=== PATIENT | female | born 1950 | race Caucasian/White ===

== ENCOUNTER 2019-08-18 21:39 | Observation (INO) ==
--- NOTE | 2019-08-18 21:57 | DR.GENAD ---
HPI Time Seen Time Seen by Provider: 08/18/19 21:51 HPI Comment HPI Comment: Brought in by ems after falling at home; daughter reports she had 30mg temazepam in the bottle which was labeled 15mg and the pt took two (60mg total); she fell by her bedside; currently, she is very sleepy but slowly and co herently answers questions; feels groggy but daughter says she normally does with 30mg alone; she was dropped to 15mg because she felt the 30mg made her too groggy but had gone back to 30mg (two 15mg) because the 15mg didn't help her sleep; she got a rf today with the mixup; occasional palpitations and cp which is unchanged and for which cardiology is scheduling additional testing; does not feel she is particularly worse tonight. 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 Social History Do you use any recreational Drugs:: No infectious screening Isolation: Standard ROS Review of Systems Constitutional: See HPI, Weakness and Fatigue (no diaphoresis) Eyes: No Symptoms Reported ENTM: No Symptoms Reported Respiratoy: Short of Breath (occasional; no wheezing or cough) Cardiovascular: See HPI, Chest Pain and Palpitations Gastrointestinal/Abdominal: No Symptoms Reported Genitourinary: Other (currently on abx for uti) Neurological: See HPI Musculoskeletal: Muscle Stiffness Endocrine: No Symptoms Reported PE Vital Signs Vitals: Temperature 97.8 F Pulse Rate 71 Respiratory Rate 20 Blood Pressure [Left Arm] 135/66 Blood Pressure 188/77 O2 Sat by Pulse Oximetry 97 General Limitations: Altered Mental Status (somnolent but arousable; speech slow but clear) General Appearance: Obtunded Head Head Exam: Normal Inspection and Atraumatic Neck Neck Exam: Normal Inspection and Full ROM Chest Chest Inspection: Normal Inspection and Symmetric Chest Wall Rise Respiratory Respiratory Exam: Bilateral: Clear to Auscultation Cardiovascular Cardiovascular Exam: Regular Rate Abdominal Exam Abdominal Exam: Normal Inspection, Normal Bowel Sounds and Soft Back Back Exam: Normal Inspection Psychiatric Psychiatric Exam: Other (somnolent; occasionally follows commands) Skin Skin Exam: Warm and Dry COURSE Reevaluation 1st: Improved ROR Labs Reviewed Result Diagrams: 08/18/19 22:07 08/18/19 22:07 Laboratory: WBC 4.9 X10^3/uL (3.6-10.0) 08/18/19 22:07 RBC 4.01 X10^6/uL (3.5-5.4) 08/18/19 22:07 Hgb 12.0 g/dL (12.0-16.0) 08/18/19 22:07 Hct 35.9 % (36.0-47.0) L 08/18/19 22:07 MCV 89.5 fL (80.0-100.0) 08/18/19 22:07 MCH 29.9 pg (27.0-34.0) 08/18/19 22:07 MCHC 33.4 g/dL (33.0-35.0) 08/18/19 22:07 RDW 13.8 % (11.6-16.5) 08/18/19 22:07 Plt Count 172 X10^3/uL (150.0-450.0) 08/18/19 22:07 MPV 9.6 fL (7.4-11.0) 08/18/19 22:07 Neut % (Auto) 62.0 % (42.0-75.0) 08/18/19 22:07 Lymph % (Auto) 29.6 % (21.0-51.0) 08/18/19 22:07 [place] % (Auto) 5.1 % (0.0-13.0) 08/18/19 22:07 Eos % (Auto) 2.0 % (0.9-2.9) 08/18/19 22:07 Baso % (Auto) 1.3 % (0.2-1.0) H 08/18/19 22:07 Neut # (Auto) 3.1 x10^3/uL (2.2-4.8) 08/18/19 22:07 Lymph # (Auto) 1.5 X10^3/uL (1.3-2.9) 08/18/19 22:07 [place] # (Auto) 0.3 x10^3/uL (0.3-0.8) 08/18/19 22:07 Eos # (Auto) 0.1 x10^3/uL (0.0-0.2) 08/18/19 22:07 Baso # (Auto) 0.1 X10^3/uL (0.0-0.1) 08/18/19 22:07 Absolute Nucleated RBC 0.0 /100WBC 08/18/19 22:07 Opioid Opioid Risk Tool Total: 0 Total Score Risk Category: Low Risk Copyright: Cortez WALLER predicting aberrant behaviors
[2019-08-18 22:15] LABS: BASOPHILS # (AUTO) 0.1 X10^3/uL (0.0-0.1); BASOPHILS % (AUTO) 1.3 % (0.2-1.0); EOSINOPHILS # (AUTO) 0.1 x10^3/uL (0.0-0.2); HEMATOCRIT 35.9 % (36.0-47.0); LYMPHOCYTES # (AUTO) 1.5 X10^3/uL (1.3-2.9); LYMPHOCYTES % (AUTO) 29.6 % (21.0-51.0); MEAN CORPUSCULAR HEMOGLOBIN 29.9 pg (27.0-34.0); MEAN CORPUSCULAR HGB CONC 33.4 g/dL (33.0-35.0); MEAN CORPUSCULAR VOLUME 89.5 fL (80.0-100.0); MEAN PLATELET VOLUME 9.6 fL (7.4-11.0); MONOCYTES # (AUTO) 0.3 x10^3/uL (0.3-0.8); MONOCYTES % (AUTO) 5.1 % (0.0-13.0); NEUTROPHILS # (AUTO) 3.1 x10^3/uL (2.2-4.8); PLATELET COUNT 172 X10^3/uL (150.0-450.0); RED BLOOD COUNT 4.01 X10^6/uL (3.5-5.4); RED CELL DISTRIBUTION WIDTH 13.8 % (11.6-16.5); WHITE BLOOD COUNT 4.9 X10^3/uL (3.6-10.0)
[2019-08-18 22:23] LABS: ALANINE AMINOTRANSFERASE 43 Units/L (12-78); ALBUMIN 3.8 g/dL (3.4-5.0); ALKALINE PHOSPHATASE 23 Units/L (46-116); ASPARTATE AMINO TRANSFERASE 23 Units/L (15-37); BLOOD UREA NITROGEN 24 mg/dL (7-18); CALCIUM 9.3 mg/dL (8.5-10.1); CARBON DIOXIDE 26.8 mmol/L (21-32); CHLORIDE 104 mmol/L (98-107); COR NA(FOR HYPERGLY) 141 mmol/L (136-145); CREATININE 1.12 mg/dL (0.55-1.02); SODIUM 140 mmol/L (136-145); TOTAL PROTEIN 7.3 g/dL (6.4-8.2); eGFR NON BLACK RACES 51 (>60)
[2019-08-18] MEDS ORDERED: VASOTEC INJ 2.5 MG VIAL IVP ONE (22:55)
[2019-08-18] MEDS ORDERED: NS 1000 ML 1,000 ML IV SCH (23:00)
--- NOTE | 2019-08-18 23:00 | DR.GENAD ---
HPI Time Seen Time Seen by Provider: 08/18/19 21:51 PCP Primary Care Physician: CHELSEY SCOTT HPI Comment HPI Comment: see previous note Complaint/Symptoms Chief Complaint:: PT TOOK TOO MUCH OF HER SLEEPING MEDICATION. PT NORMALLY TAKE 30MG OF RESTORIL . PT MISTAKELY TOOK 60MG. 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 Past Surgical History Comment: PARTIAL MASECTOMY, HEART SURGERY Family History History of Family Medical Conditions: Yes Family Medical History: Diabetes Mellitus and Hypertension Social History Have you used tobacco products in the last 12 months: No Type of Tobacco Use: None Does any household member use tobacco: No Alcohol Use: None Do you use any recreational Drugs:: No Lives With: Alone infectious screening In the last 2 months have you had wt loss of >10#?: NO Have you had fever, night sweats or hemotysis?: No Have you traveled outside the country in the last 6 months?: No Isolation: Standard ROS Review of Systems Constitutional: Other (see previous note) Endocrine: Increased Hunger PE Vital Signs Vitals: Temperature 97.8 F Pulse Rate 70 Respiratory Rate 20 Blood Pressure [Left Arm] 135/66 Blood Pressure 198/93 O2 Sat by Pulse Oximetry 99 General Limitations: Other (see previous note) COURSE Reevaluation 1st: Improved (she is actually more alert and spontaneously starts telling me what happened while I discussed admission w/family) ROR Labs Reviewed Laboratory Results Reviewed?: Yes Result Diagrams: 08/18/19 22:07 08/18/19 22:07 Laboratory: WBC 4.9 X10^3/uL (3.6-10.0) 08/18/19 22:07 RBC 4.01 X10^6/uL (3.5-5.4) 08/18/19 22:07 Hgb 12.0 g/dL (12.0-16.0) 08/18/19 22:07 Hct 35.9 % (36.0-47.0) L 08/18/19 22:07 MCV 89.5 fL (80.0-100.0) 08/18/19 22:07 MCH 29.9 pg (27.0-34.0) 08/18/19 22:07 MCHC 33.4 g/dL (33.0-35.0) 08/18/19 22:07 RDW 13.8 % (11.6-16.5) 08/18/19 22:07 Plt Count 172 X10^3/uL (150.0-450.0) 08/18/19 22:07 MPV 9.6 fL (7.4-11.0) 08/18/19 22:07 Neut % (Auto) 62.0 % (42.0-75.0) 08/18/19 22:07 Lymph % (Auto) 29.6 % (21.0-51.0) 08/18/19 22:07 [place] % (Auto) 5.1 % (0.0-13.0) 08/18/19 22:07 Eos % (Auto) 2.0 % (0.9-2.9) 08/18/19 22:07 Baso % (Auto) 1.3 % (0.2-1.0) H 08/18/19 22:07 Neut # (Auto) 3.1 x10^3/uL (2.2-4.8) 08/18/19 22:07 Lymph # (Auto) 1.5 X10^3/uL (1.3-2.9) 08/18/19 22:07 [place] # (Auto) 0.3 x10^3/uL (0.3-0.8) 08/18/19 22:07 Eos # (Auto) 0.1 x10^3/uL (0.0-0.2) 08/18/19 22:07 Baso # (Auto) 0.1 X10^3/uL (0.0-0.1) 08/18/19 22:07 Absolute Nucleated RBC 0.0 /100WBC 08/18/19 22:07 Sodium 140 mmol/L (136-145) 08/18/19 22:07 Corrected Sodium 141 mmol/L (136-145) 08/18/19 22:07 Potassium 3.5 mmol/L (3.5-5.1) 08/18/19 22:07 Chloride 104 mmol/L (98-107) 08/18/19 22:07 Carbon Dioxide 26.8 mmol/L (21-32) 08/18/19 22:07 BUN 24 mg/dL (7-18) H 08/18/19 22:07 Creatinine 1.12 mg/dL (0.55-1.02) H 08/18/19 22:07 Est GFR (MDRD) Af Amer > 60 (>60) 08/18/19 22:07 Est GFR (MDRD) Non-Af 51 (>60) L 08/18/19 22:07 Glucose 160 mg/dL (65-99) H 08/18/19 22:07 Calcium 9.3 mg/dL (8.5-10.1) 08/18/19 22:07 Corrected Calcium TNP 08/18/19 22:07 Total Bilirubin 0.30 mg/dL (0.2-1.0) 08/18/19 22:07 AST 23 Units/L (15-37) 08/18/19 22:07 ALT 43 Units/L (12-78) 08/18/19 22:07 Alkaline Phosphatase 23 Units/L (46-116) L 08/18/19 22:07 Total Protein 7.3 g/dL (6.4-8.2) 08/18/19 22:07 Albumin 3.8 g/dL (3.4-5.0) 08/18/19 22:07 Globulin 3.5 g/dL (2.5-4.5) 08/18/19 22:07 Albumin/Globulin Ratio 1.1 Ratio (1.1-2.1) 08/18/19 22:07 EKG Rhythm: NSR Block: RBBB Opioid Opioid Risk Tool Age (Noah box if 16-45): No Total: 0 Total Score Risk Category: Low Risk Copyright: Cortez WALLER predicting aberrant behaviors Diagnosis Discharge Problem: Uncontrolled hypertension, Cystitis Benzodiazepine (tranquilizer) overdose Qualifiers: Encounter type: initial encounter Injury intent: accidental or unintentional Qualified Code(s): T42.4X1A - Poisoning by benzodiazepines, accidental (unintentional), initial encounter Instructions Instructions: Hypertension, [id number] Forms: Excuse From Work Patient Portal
[2019-08-18] MEDS ORDERED: VASOTEC INJ 2.5 MG VIAL IVP PRN (23:07)
[2019-08-19 00:57] VITALS: BMI 28.3
--- NOTE | 2019-08-19 08:30 | DR.SSS ---
SHORT STAY SUMMARY Admission Date Date of Admission: 08/18/19 Discharge Date Discharge Date: 08/19/19 Admission Diagnoses Admission Diagnoses: Benzodiazepine Overdose Discharge Diagnoses Discharge Diagnoses: Benzodiazepine Overdose Cystitis Chief Complaint Chief Complaint: Accidently took too much sleep medicine. History of Present Illness History of Present Illness: Pt is a 68 yo f pmhx HTN, DM, ALBA, presenting after accidently taking too much of her sleep medication. She states that she usually takes Restoril 15mg that was not helping her symptoms and dose was changed by her pcp Laurence Suarez, to 30mg. However, since she still had 15mg tablets left she was told to take 2 tablets to equal same dose. 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 She became concerned after realizing her mistake and came to the ED to be evaluated. She admits to be under a lot of social stress at home, but denies taking medication intentionally or having suicidal/homicidal ideations. 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 Allergies Allergies Allergy/AdvReac Type Severity Reaction Status Date / Time Fqtcekk-Byy-Zgk Reductase Allergy Verified 08/18/19 21:53 Inhibitor Medications Home Medications: Mhnilvr-Fyv-Tnp Reductase Inhibitor Allergy (Verified 08/18/19 21:53) CONTINUE taking the following medications Unobtainable 08/18/19 [History] Family History Family Medical History: Diabetes Mellitus and Hypertension Social History Have you used tobacco products in the last 12 months: No Type of Tobacco Use: None Does any household member use tobacco: No Alcohol Use: None Drug Use: None Review of Systems Constitutional: Malaise; denies Fever, Chills and Weakness Eyes: No Symptoms Reported ENT: No Symptoms Reported Respiratory: No Symptoms Reported Gastrointestinal: No Symptoms Reported Genitourinary: No Symptoms Reported Musculoskeletal: No Symptoms Reported Skin: No Symptoms Reported Neurological: No Symptoms Reported Physical Exam Temperature: 98.3 F Blood Pressure: 207/91 Respiratory Rate: 16 Pulse Rate: 67 O2 Sat by Pulse Oximetry: 97 Oriented: Normal Eyes: Normal Ear: Normal Nose: Normal Respiratory: Clear Throughout Cardiovascular: Normal : Dysuria Auscultation: Bowel Sounds: Normal Palpation: Normal Tenderness: Normal Skin: Normal Musculoskeletal: Normal Psychiatric: Normal Mood Description: Calm Speech Pattern: Clear Labs Labs: Laboratory Last Values WBC 4.9 X10^3/uL (3.6-10.0) 08/18/19 22:07 RBC 4.01 X10^6/uL (3.5-5.4) 08/18/19 22:07 Hgb 12.0 g/dL (12.0-16.0) 08/18/19 22:07 Hct 35.9 % (36.0-47.0) L 08/18/19 22:07 MCV 89.5 fL (80.0-100.0) 08/18/19 22:07 MCH 29.9 pg (27.0-34.0) 08/18/19 22:07 MCHC 33.4 g/dL (33.0-35.0) 08/18/19 22:07 RDW 13.8 % (11.6-16.5) 08/18/19 22:07 Plt Count 172 X10^3/uL (150.0-450.0) 08/18/19 22:07 MPV 9.6 fL (7.4-11.0) 08/18/19 22:07 Neut % (Auto) 62.0 % (42.0-75.0) 08/18/19 22:07 Lymph % (Auto) 29.6 % (21.0-51.0) 08/18/19 22:07 [place] % (Auto) 5.1 % (0.0-13.0) 08/18/19 22:07 Eos % (Auto) 2.0 % (0.9-2.9) 08/18/19 22:07 Baso % (Auto) 1.3 % (0.2-1.0) H 08/18/19 22:07 Neut # (Auto) 3.1 x10^3/uL (2.2-4.8) 08/18/19 22:07 Lymph # (Auto) 1.5 X10^3/uL (1.3-2.9) 08/18/19 22:07 [place] # (Auto) 0.3 x10^3/uL (0.3-0.8) 08/18/19 22:07 Eos # (Auto) 0.1 x10^3/uL (0.0-0.2) 08/18/19 22:07 Baso # (Auto) 0.1 X10^3/uL (0.0-0.1) 08/18/19 22:07 Absolute Nucleated RBC 0.0 /100WBC 08/18/19 22:07 Sodium 140 mmol/L (136-145) 08/18/19 22:07 Corrected Sodium 141 mmol/L (136-145) 08/18/19 22:07 Potassium 3.5 mmol/L (3.5-5.1) 08/18/19 22:07 Chloride 104 mmol/L (98-107) 08/18/19 22:07 Carbon Dioxide 26.8 mmol/L (21-32) 08/18/19 22:07 BUN 24 mg/dL (7-18) H 08/18/19 22:07 Creatinine 1.12 mg/dL (0.55-1.02) H 08/18/19 22:07 Est GFR (MDRD) Af Amer > 60 (>60) 08/18/19 22:07 Est GFR (MDRD) Non-Af 51 (>60) L 08/18/19 22:07 Glucose 160 mg/dL (65-99) H 08/18/19 22:07 Calcium 9.3 mg/dL (8.5-10.1) 08/18/19 22:07 Corrected Calcium TNP 08/18/19 22:07 Total Bilirubin 0.30 mg/dL (0.2-1.0) 08/18/19 22:07 AST 23 Units/L (15-37) 08/18/19 22:07 ALT 43 Units/L (12-78) 08/18/19 22:07 Alkaline Phosphatase 23 Units/L (46-116) L 08/18/19 22:07 Total Protein 7.3 g/dL (6.4-8.2) 08/18/19 22:07 Albumin 3.8 g/dL (3.4-5.0) 08/18/19 22:07 Globulin 3.5 g/dL (2.5-4.5) 08/18/19 22:07 Albumin/Globulin Ratio 1.1 Ratio (1.1-2.1) 08/18/19 22:07 Assessment/Plan 1: Benzodiazepine overdose -Vitals stable overnight. Overdose appears to be accidental. Contacted pharmacy before discharge to have Restoril relabeled. Educated and cautioned patient on taking medication. Discharge home. 2: Cystitis -Pt being treated with Bactrim by pcp. Instructed to complete course of home antibiotics on discharge. Discharge Medications Discharge Medications: Home Medication List Unobtainable 08/18/19 [History] Prescriptions:
[2019-08-19] MEDS ORDERED: BACTRIM DS TAB PO SCH ×2 (09:00→10:00)
[2019-08-19] MEDS ORDERED: ZESTRIL TAB 5 MG PO SCH (09:15)
[2019-08-19] MEDS ORDERED: NAPROSYN PO SCH (09:32)
[2019-08-19 09:50] VITALS: BP 127/60
[2019-08-19] MEDS ORDERED: AMARYL TAB 4 MG PO SCH (10:00)
[2019-08-19] MEDS ORDERED: EFFEXOR XR 75 MG CAP PO SCH (10:00)
[2019-08-19] MEDS ORDERED: SNACK - Diabetic Appropriate PO SCH (20:00)
[2019-08-19] MEDS ORDERED: NEURONTIN CAP 100 MG PO SCH (21:00)
[2019-08-20] MEDS ORDERED: MICRO K EXTEN CAP 10 MEQ PO SCH (09:00)
== END 2019-08-19 11:28 | disposition home or self-care (01) ==
LOC: MED/SURG 21:40 → ER 21:40 → MED/SURG 23:39
PROVIDERS: ADMIT Family Medicine; ATTEND Family Medicine
DX: Z91.81 History of falling; I10 Essential (primary) hypertension; R06.02 Shortness of breath; E11.65 Type 2 diabetes mellitus with hyperglycemia; R94.31 Abnormal electrocardiogram [ECG] [EKG]; Y92.009 Unspecified place in unspecified non-institutional (private) residence as the place of occurrence of the external cause; K21.9 Gastro-esophageal reflux disease without esophagitis; R07.89 Other chest pain; T42.4X1A Poisoning by benzodiazepines, accidental (unintentional), initial encounter; N30.90 Cystitis, unspecified without hematuria; F41.8 Other specified anxiety disorders; R94.4 Abnormal results of kidney function studies
CPT/HCPCS: 36415; 80053; 85025; 93005; 94760; 96360; 96361; 96365; 96374; 99284; G0378; J3490; J7030

== ENCOUNTER 2019-08-30 20:00 | Observation (INO) ==
[2019-08-30 20:28] VITALS: BMI 28.3
--- NOTE | 2019-08-30 20:38 | DR.NAUSEAF ---
HPI - Time Seen Time seen: 20:37 - Primary Care Physician Primary Care Physician: DEBI - Complaints Chief Complaint Doctors Comments: Patient is complaining of epigastric pain with presistent vomiting for two days not being able to keep anything down. Spouse say she has been sick for a week. States she has hypertension and a CABG four y ears ago with Breast cancer four years ago. She is a patient of [facility] and she has not taken anything for the vomiting today. States all her medicines and food comes back up. She is having chest pressure on the left side for a while with SOB today. Chief Complaint:: PT C/O N/V FOR 2 DAYS WEAKNESS - Reviewed Nurses Notes Reviewed: Yes - Source History Provided: Patient - Mode of Arrival Mode of Arrival: Wheelchair - Timing Onset of Chief Complaint: 08/28/19 - Context Onset: Spontaneous Recent: None Possible Ingestion: Unknown : No History of: Abdominal Operation - Quality Quality: Bilious - Associated Signs and Symptoms Abdominal Pain Quality: Cramping, Sharp Abdominal Pain Location: Diffuse, Epigastric Symptoms: denies: Abdominal Pain, Diarrhea, Anorexia, Hematemesis, Melena, Hematochezia, Fever PMH - PMH Past Medical History: Yes Past Medical History: Hypertension, Diabetes, Anxiety, GERD Past Surgical History: Yes Surgical History: CABG/Valve Surgery, INSPECTOR METAL CAN Surgery, Mastectomy, Tonsillectomy Past Surgical History Comment: LT BREAST DUE TO BREAT CA - Family History History of Family Medical Conditions: Yes Family Medical History: Diabetes Mellitus, Hypertension - Social History Does any household member use tobacco: No Alcohol Use: None Do you use any recreational Drugs:: No Lives With: Family Lives Where: Home - infectious screening In the last 2 months have you had wt loss of >10#?: NO Have you had fever, night sweats or hemotysis?: No Have you traveled outside the country in the last 6 months?: No Isolation: Standard ROS - Review of Systems Constitutional: No Symptoms Reported, Loss of Appetite Eyes: No Symptoms Reported ENTM: No Symptoms Reported, Nose Discharge, Nose Congestion Respiratoy: No Symptoms Reported Cardiovascular: No Symptoms Reported, Chest Pain (left sided xiphoid discomfort) Gastrointestinal/Abdominal: No Symptoms Reported, Nausea, Vomiting Genitourinary: No Symptoms Reported. negative: See HPI, Discharge, Dysuria, Frequency, Hematuria, Pain, Bleeding, Other Neurological: No Symptoms Reported Musculoskeletal: No Symptoms Reported Integumentary: No Symptoms Reported Hematologic/Lymphatic: No Symptoms Reported Endocrine: No Symptoms Reported Psychiatric: No Symptoms Reported PE - General Limitations: No Limitations General Appearance: Alert, In No Apparent Distress - Head Head Exam: Normal Inspection, Atraumatic, Normocephalic - Eyes Eye exam: Normal Appearance, PERRL, EOMI. negative: Scleral Icterus, Conjunctival Injection, Nystagmus, Miosis, Mydrasis, Periorbital Swelling, Periorbital Tenderness, Other - ENT ENT Exam: Normal Exam, Normal Oropharynx, Normal External Ear Exam, Mucous Membranes Moist, TM's Normal Bilaterally - Neck Neck Exam: Normal Inspection, Full ROM, Trachea Midline. negative: Tenderness, Meningismus, Lymphadenopathy, Thyromegaly, Other - Chest Chest Inspection: Normal Inspection, Symmetric Chest Wall Rise. negative: Tenderness, Rash, Abscess, Other - Respiratory Respiratory Exam: Normal Lung Sounds Bilat Respiratory Exam: Bilateral Clear to Auscultation - Cardiovascular Cardiovascular Exam: Regular Rate, Normal Rhythm, Normal Heart Sounds, Systolic Murmur - Abdominal Exam Abdominal Exam: Normal Inspection, Normal Bowel Sounds, Soft, Tenderness, Guarding, Dimnished Bowel Sounds Abdominal Tenderness: RLQ, LLQ, Epigastrium, Suprapubic, Moderate - Rectal Rectal Exam: Deferred - External Exam: Female: Deferred : Speculum Exam (Female): Deferred : Bimanual Exam (female): Deferred - Extremities Extremities Exam: Normal Inspection, Full ROM, Normal Capillary Refill. negative: Tenderness, Edema, Joint Swelling, Calf Tenderness, Other - Back Back Exam: Normal Inspection, Full ROM. negative: Tenderness, (R) CVA Tende rness, (L) CVA Tenderness, Muscle Spasm, Paraspinal Tenderness, Vertebral Tenderness, Rashes, (R) Sciatic Notch Tenderness, (L) Sciatic Notch Tendern, (R) Straight Leg Raise, (L) Straight Leg Raise, Other - Neurologic Neurological Exam: Alert, Oriented X3, CN II-XII Intact, Normal Gait, Reflexes Normal - Psychiatric Psychiatric Exam: Normal Affect, Normal Mood, Agitated. negative: Depressed, Anxious, Flat Affect, Manic, Homicidal Ideation, Suicidal Ideation, Other - Skin Skin Exam: Warm, Dry, Intact, Normal Color - Vital Signs Vitals: Temperature 97.8 F Pulse Rate 106 Respiratory Rate 18 Blood Pressure [Left Arm] 127/60 Blood Pressure 178/92 O2 Sat by Pulse Oximetry 100 Course - Reevaluation 1st: Improved - Consultation Called: 02:42 Call Returned: 02:42 (Dr. Roland to admit) - Education/Counseling Education/Counseling: Patient, Family Educated On: Treatment, Diagnosis, Needs for Follow Up ROR - Labs Reviewed Laboratory Results Reviewed?: Yes (All labs and x-ray results reviewed and discussed with patient) Result Diagrams: 08/30/19 20:56 08/30/19 20:56 - XRAY XRAY Interpreted by: Radiologist (CT abdomen and pelvis: No acute abnormality identified. Cholelithiasis without CT evidence of acute cholecystitis. Colonic diverticulosis without diverticulitis.), Both (CTA: con't: 3.9 cmfat and fluid collection left breast.) XRAY Findings: CTA chest: No central/segmental PTE or acute cardiopulmonary abnormality. - EKG Rate: 87 [place]: Normal Rhythm: NSR, PVCs Block: RBBB ST: Nonsp - Labs Reviewed Laboratory: WBC 4.5 X10^3/uL (3.6-10.0) 08/30/19 20:56 RBC 3.93 X10^6/uL (3.5-5.4) 08/30/19 20:56 Hgb 11.8 g/dL (12.0-16.0) L 08/30/19 20:56 Hct 35.3 % (36.0-47.0) L 08/30/19 20:56 MCV 89.9 fL (80.0-100.0) 08/30/19 20:56 MCH 30.1 pg (27.0-34.0) 08/30/19 20:56 MCHC 33.5 g/dL (33.0-35.0) 08/30/19 20:56 RDW 14.0 % (11.6-16.5) 08/30/19 20:56 Plt Count 238 X10^3/uL (150.0-450.0) 08/30/19 20:56 MPV 9.6 fL (7.4-11.0) 08/30/19 20:56 Neut % (Auto) 69.5 % (42.0-75.0) 08/30/19 20:56 Lymph % (Auto) 23.9 % (21.0-51.0) 08/30/19 20:56 [place] % (Auto) 4.6 % (0.0-13.0) 08/30/19 20:56 Eos % (Auto) 0.7 % (0.9-2.9) L 08/30/19 20:56 Baso % (Auto) 1.3 % (0.2-1.0) H 08/30/19 20:56 Neut # (Auto) 3.2 x10^3/uL (2.2-4.8) 08/30/19 20:56 Lymph # (Auto) 1.1 X10^3/uL (1.3-2.9) L 08/30/19 20:56 [place] # (Auto) 0.2 x10^3/uL (0.3-0.8) L 08/30/19 20:56 Eos # (Auto) 0.0 x10^3/uL (0.0-0.2) 08/30/19 20:56 Baso # (Auto) 0.1 X10^3/uL (0.0-0.1) 08/30/19 20:56 Absolute Nucleated RBC 0.0 /100WBC 08/30/19 20:56 PT 15.1 SECONDS (11.8-14.3) 08/30/19 20:56 INR Target Range - 08/30/19 20:56 INR 1.24 (0.8-1.3) 08/30/19 20:56 APTT 25.5 SECONDS (22.9-36.5) 08/30/19 20:56 PTT Comment - 08/30/19 20:56 D-Dimer 868 ng/mL (0-400) H* 08/30/19 20:56 Sodium 135 mmol/L (136-145) L 08/30/19 20:56 Corrected Sodium 139 mmol/L (136-145) 08/30/19 20:56 Potassium 4.5 mmol/L (3.5-5.1) 08/30/19 20:56 Chloride 103 mmol/L (98-107) 08/30/19 20:56 Carbon Dioxide 19.4 mmol/L (21-32) L 08/30/19 20:56 BUN 60 mg/dL (7-18) H 08/30/19 20:56 Creatinine 1.07 mg/dL (0.55-1.02) H 08/30/19 20:56 Est GFR (MDRD) Af Amer > 60 (>60) 08/30/19 20:56 Est GFR (MDRD) Non-Af 54 (>60) L 08/30/19 20:56 Glucose 282 mg/dL (65-99) H 08/30/19 20:56 Calcium 10.2 mg/dL (8.5-10.1) H 08/30/19 20:56 Corrected Calcium TNP 08/30/19 20:56 Magnesium 1.6 mg/dL (1.7-2.9) L 08/30/19 20:56 Total Bilirubin 0.40 mg/dL (0.2-1.0) 08/30/19 20:56 AST 22 Units/L (15-37) 08/30/19 20:56 ALT 36 Units/L (12-78) 08/30/19 20:56 Alkaline Phosphatase 21 Units/L (46-116) L 08/30/19 20:56 Creatine Kinase 32 Units/L (26-192) 08/30/19 20:56 CK-MB (CK-2) < 1.0 ng/mL (0-4.0) 08/30/19 20:56 CK/CKMB % Calc 3.1 % (<4) 08/30/19 20:56 Troponin I < 0.02 ng/mL (0-1.5) 08/30/19 20:56 Total Protein 7.5 g/dL (6.4-8.2) 08/30/19 20:56 Albumin 3.9 g/dL (3.4-5.0) 08/30/19 20:56 Globulin 3.6 g/dL (2.5-4.5) 08/30/19 20:56 Albumin/Globulin Ratio 1.1 Ratio (1.1-2.1) 08/30/19 20:56 Specimen Type Random urine 08/30/19 21:52 Urine Color Yellow (YELLOW) 08/30/19 21:52 Urine Appearance Clear (CLEAR) 08/30/19 21:52 Urine pH 6.0 (5.0 - 8.0) 08/30/19 21:52 Ur Specific [place] 1.015 (1.000-1.030) 08/30/19 21:52 Urine Protein 1+ (NEGATIVE) 08/30/19 21:52 Urine Glucose (UA) 4+ (NEGATIVE) 08/30/19 21:52 Urine Ketones 2+ (NEGATIVE) 08/30/19 21:52 Urine Occult Blood Negative (NEGATIVE) 08/30/19 21:52 Urine Nitrite Negative (NEGATIVE) 08/30/19 21:52 Urine Bilirubin Negative (NEGATIVE) 08/30/19 21:52 Urine Urobilinogen Normal (NORMAL) 08/30/19 21:52 Ur Leukocyte Esterase 2+ (NEGATIVE) 08/30/19 21:52 Urine RBC 3-5 /HPF (0-3) A 08/30/19 21:52 Urine WBC 3-5 /HPF (0-5) 08/30/19 21:52 Ur Squamous Epith Cells Few /HPF (NEGATIVE) 08/30/19 21:52 Urine Bacteria Trace /HPF (NEGATIVE) 08/30/19 21:52 Ur Culture Indicated? Yes/culture set up 08/30/19 21:52 Opioid - Opioid Risk Tool Age (Noah box if 16-45): No Total: 0 Total Score Risk Category: Low Risk - Diagnosis Discharge Problem: Acute gastroenteritis, Metabolic acidosis, Diverticulosis of colon, Dyspepsia, Lump of breast, left, Essential hypertension, Dehydration Diabetes mellitus type 2, uncontrolled Qualifiers: Glycemic state: with hyperglycemia Qualified Code(s): E11.65 - Type 2 diabetes mellitus with hyperglycemia Cholelithiasis Qualifiers: Cholangitis acuity: unspecified acuity Biliary obstruction: without biliary obstruction Urinary tract infection Qualifiers: Urinary tract infection type: acute cystitis Chronic kidney disease (CKD) Qualifiers: Chronic kidney disease stage: stage 3 (moderate) Qualified Code(s): N18.3 - Chronic kidney disease, stage 3 (moderate) - Discharge Plan Disposition: 09 ADMITTED INPATIENT Condition: Stable - Follow ups/Referrals Follow ups/Referrals: Ulysses Mary [Primary Care Provider] - 3 days - Instructions
[2019-08-30] MEDS ORDERED: NS 1000 ML 1,000 ML IV ONE (20:45)
[2019-08-30] MEDS ORDERED: ZOFRAN INJ 4 MG VIAL IVP ONE (20:45)
[2019-08-30] MEDS ORDERED: TORADOL 30 MG VIAL IVP ONE (20:46)
[2019-08-30] MEDS ORDERED: NS 1000 ML 1,000 ML ONE (20:47)
[2019-08-30] MEDS ORDERED: ZOFRAN INJ 4 MG VIAL ONE (20:47)
[2019-08-30] MEDS ORDERED: TORADOL 30 MG VIAL ONE (20:53)
[2019-08-30 21:16] LABS: BASOPHILS # (AUTO) 0.1 X10^3/uL (0.0-0.1); BASOPHILS % (AUTO) 1.3 % (0.2-1.0); EOSINOPHILS % (AUTO) 0.7 % (0.9-2.9); HEMATOCRIT 35.3 % (36.0-47.0); HEMOGLOBIN 11.8 g/dL (12.0-16.0); LYMPHOCYTES # (AUTO) 1.1 X10^3/uL (1.3-2.9); LYMPHOCYTES % (AUTO) 23.9 % (21.0-51.0); MEAN CORPUSCULAR HEMOGLOBIN 30.1 pg (27.0-34.0); MEAN CORPUSCULAR HGB CONC 33.5 g/dL (33.0-35.0); MEAN CORPUSCULAR VOLUME 89.9 fL (80.0-100.0); MEAN PLATELET VOLUME 9.6 fL (7.4-11.0); MONOCYTES # (AUTO) 0.2 x10^3/uL (0.3-0.8); MONOCYTES % (AUTO) 4.6 % (0.0-13.0); NEUTROPHILS # (AUTO) 3.2 x10^3/uL (2.2-4.8); NEUTROPHILS % (AUTO) 69.5 % (42.0-75.0); PLATELET COUNT 238 X10^3/uL (150.0-450.0); RED BLOOD COUNT 3.93 X10^6/uL (3.5-5.4); WHITE BLOOD COUNT 4.5 X10^3/uL (3.6-10.0)
[2019-08-30 21:30] LABS: BLOOD UREA NITROGEN 60 mg/dL (7-18); CALCIUM 10.2 mg/dL (8.5-10.1); CARBON DIOXIDE 19.4 mmol/L (21-32); CHLORIDE 103 mmol/L (98-107); COR NA(FOR HYPERGLY) 139 mmol/L (136-145); CREATININE 1.07 mg/dL (0.55-1.02); SODIUM 135 mmol/L (136-145); TROPONIN I < 0.02 ng/mL (0-1.5); eGFR NON BLACK RACES 54 (>60)
--- NOTE | 2019-08-30 21:32 | RAD ---
Chest, one viewIndication: Nausea, vomitingComparison: 06/07/2015Findings: Heart is normal in size. Prior CABG noted. No focal infiltrate or significant effusion. No pneumothorax.Impression: No acute cardiopulmonary abnormality. Reported By:
--- NOTE | 2019-08-30 21:32 | CT ---
CT abdomen and pelvis without contrastIndication: Nausea and vomiting for 2 days, weaknessTechnique: Helical CT images of the abdomen and pelvis were obtained without IV contrast. Reformatted images in the coronal and sagittal planes were also generated for review.Comparison: NoneFindings: Lung bases are clear. No acute osseous abnormality.Within limits of a noncontrast exam, the unenhanced liver, spleen, pancreas, adrenals and kidneys are unremarkable. No urolithiasis or obstructive uropathy. There is cholelithiasis without CT evidence of acute cholecystitis.Evaluation of the GI tract is limited without oral contrast. Accounting for this, there is colonic diverticulosis without diverticulitis. There is no bowel obstruction or gross inflammation. The appendix is normal. The abdominal aorta is mildly calcified without aneurysm. Urinary bladder is grossly normal. Uterus is present. No free air, free fluid or bulky lymphadenopathy.Impression: No acute abnormality identified within the limitations of an exam performed without intravenous or oral contrast.Cholelithiasis without CT evidence of acute cholecystitis.Colonic diverticulosis without diverticulitis.Reported By:
[2019-08-30 21:34] LABS: ALANINE AMINOTRANSFERASE 36 Units/L (12-78); ALBUMIN 3.9 g/dL (3.4-5.0); ALKALINE PHOSPHATASE 21 Units/L (46-116); ASPARTATE AMINO TRANSFERASE 22 Units/L (15-37); CKMB % 3.1 % (<4); CREATINE KINASE 32 Units/L (26-192); CREATINE KINASE MB < 1.0 ng/mL (0-4.0); MAGNESIUM 1.6 mg/dL (1.7-2.9); TOTAL PROTEIN 7.5 g/dL (6.4-8.2)
[2019-08-30] MEDS ORDERED: NS 100 ML IV 100 ML IV ONE (22:04)
[2019-08-30 22:05] LABS: BILIRUBIN,URINE NEGATIVE (NEGATIVE); BLOOD/HEMOGLOBIN,URINE NEGATIVE (NEGATIVE); GLUCOSE, URINE 4+ (NEGATIVE); KETONES,URINE 2+ (NEGATIVE); LEUKOCYTE ESTERASE ,URINE 2+ (NEGATIVE); NITRITES,URINE NEGATIVE (NEGATIVE); PROTEIN,URINE 1+ (NEGATIVE); UROBILINOGEN,URINE NORMAL (NORMAL)
[2019-08-30 22:12] LABS: APPEARANCE,URINE CLEAR (CLEAR); COLOR,URINE YELLOW (YELLOW)
[2019-08-30 22:19] LABS: BACTERIA,URINE TRACE /HPF (NEGATIVE); SQUAMOUS EPITHELIAL CELL,UR FEW /HPF (NEGATIVE)
[2019-08-30] MEDS ORDERED: PEPCID 20 MG IV PREMIX* 20 MG/50 ML BAG IV ONE ×2 (23:01→23:06)
--- NOTE | 2019-08-30 23:02 | CT ---
CTA chest Indication: Shortness of breath, chest painTechnique: Helical CT images of the chest were obtained with IV contrast. Reformatted images in the coronal and sagittal planes and 3D MIP images were also generated for review.Comparison: NoneFindings: Contrast bolus timing is adequate for detection of PTE. No central or segmental pulmonary arterial filling defects are identified. There is no pulmonary arterial dilatation or evidence of right heart strain. Heart is normal in size without pericardial effusion. Coronary atherosclerotic disease and previous CABG noted. The thoracic aorta and proximal great vessels are minimally calcified but normal in contour and caliber. Central airways are patent. There is no mediastinal or bulky hilar lymphadenopathy. The lungs are clear without focal consolidation. No pleural effusion or pneumothorax.Limited images through the upper abdomen demonstrate no acute abnormality. No acute osseous abnormality is identified. There is a 3.9 x 3.0 cm fluid collection within the left breast which contains a fat fluid level (axial image 45 series 4). No gas is noted within the collection.Impression: No central/segmental PTE or acute cardiopulmonary abnormality.3.9 cm fat and fluid containing collection within the left breast as above, which likely reflects a postoperative seroma. Correlate clinically with physical exam to exclude underlying infection/abscess.Reported By:
[2019-08-31] MEDS ORDERED: ROCEPHIN VIAL 1 GRAM 1 G in NS 100 ML IV + SPIKE MINIBAG* 100 ML IV ONE (00:21)
[2019-08-31] MEDS ORDERED: ROCEPHIN VIAL 1 GRAM ONE (00:23)
[2019-08-31] MEDS ORDERED: HumuLIN R SUBCUT PRN (02:44)
[2019-08-31] MEDS ORDERED: NS 1000 ML 1,000 ML ONE (03:45)
[2019-08-31] MEDS: NS 1000 ML 1,000 ML IV SCH ×3 (04:05→20:28)
[2019-08-31] MEDS ORDERED: TYLENOL 325 MG TAB PO ONE (04:06)
[2019-08-31] MEDS: TYLENOL 325 MG TAB PO PRN ×3 (04:28→20:32)
[2019-08-31] MEDS ORDERED: ZOFRAN INJ 4 MG VIAL ONE (05:31)
[2019-08-31] MEDS: ZOFRAN INJ 4 MG VIAL IVP PRN ×2 (05:45→16:09)
[2019-08-31 06:03] LABS: BASOPHILS % (AUTO) 0.8 % (0.2-1.0); EOSINOPHILS % (AUTO) 0.8 % (0.9-2.9); HEMATOCRIT 32.1 % (36.0-47.0); HEMOGLOBIN 10.8 g/dL (12.0-16.0); LYMPHOCYTES # (AUTO) 1.8 X10^3/uL (1.3-2.9); LYMPHOCYTES % (AUTO) 31.4 % (21.0-51.0); MEAN CORPUSCULAR HEMOGLOBIN 30.3 pg (27.0-34.0); MEAN CORPUSCULAR HGB CONC 33.6 g/dL (33.0-35.0); MEAN CORPUSCULAR VOLUME 90.2 fL (80.0-100.0); MEAN PLATELET VOLUME 9.5 fL (7.4-11.0); MONOCYTES # (AUTO) 0.3 x10^3/uL (0.3-0.8); MONOCYTES % (AUTO) 4.9 % (0.0-13.0); NEUTROPHILS # (AUTO) 3.5 x10^3/uL (2.2-4.8); NEUTROPHILS % (AUTO) 62.1 % (42.0-75.0); PLATELET COUNT 243 X10^3/uL (150.0-450.0); RED BLOOD COUNT 3.56 X10^6/uL (3.5-5.4); RED CELL DISTRIBUTION WIDTH 13.9 % (11.6-16.5); WHITE BLOOD COUNT 5.6 X10^3/uL (3.6-10.0)
[2019-08-31 06:19] LABS: ALANINE AMINOTRANSFERASE 33 Units/L (12-78); ALBUMIN 3.7 g/dL (3.4-5.0); ALKALINE PHOSPHATASE 20 Units/L (46-116); ASPARTATE AMINO TRANSFERASE 18 Units/L (15-37); BLOOD UREA NITROGEN 61 mg/dL (7-18); CALCIUM 9.3 mg/dL (8.5-10.1); CARBON DIOXIDE 23.6 mmol/L (21-32); CHLORIDE 105 mmol/L (98-107); COR NA(FOR HYPERGLY) 142 mmol/L (136-145); CREATININE 1.23 mg/dL (0.55-1.02); SODIUM 140 mmol/L (136-145); TOTAL PROTEIN 7.2 g/dL (6.4-8.2); eGFR NON BLACK RACES 46 (>60)
[2019-08-31 06:38] LABS: CHOL/HDL RATIO 10.8 (0.0-5.0)
[2019-08-31] MEDS ORDERED: NS 1000 ML 1,000 ML IV ONE (11:19)
[2019-08-31] MEDS ORDERED: PHENERGAN INJ 25 MG IM PRN (11:35)
[2019-08-31] MEDS ORDERED: PROTONIX INJ 40 MG VIAL ONE (12:26)
[2019-08-31] MEDS: PROTONIX INJ 40 MG VIAL IVP SCH ×2 (12:35→12:37)
[2019-08-31] MEDS: LOPRESSOR TAB 25 MG PO SCH (14:46)
[2019-08-31] MEDS: ZESTRIL TAB 5 MG PO SCH (14:46)
[2019-08-31] MEDS: AMARYL TAB 4 MG PO SCH ×2 (14:46→20:30)
[2019-08-31] MEDS ORDERED: NORCO 5/325 MG TAB PO PRN (17:14)
[2019-08-31] MEDS ORDERED: NORCO 5/325 MG TAB ONE (17:27)
[2019-08-31] MEDS ORDERED: SNACK - Diabetic Appropriate PO SCH (20:00)
[2019-08-31] MEDS ORDERED: COLACE CAP 100 MG PO SCH (21:00)
[2019-09-01] MEDS: ZOFRAN INJ 4 MG VIAL IVP PRN (00:20)
[2019-09-01] MEDS: TYLENOL 325 MG TAB PO PRN ×2 (01:58→09:26)
[2019-09-01] MEDS: NS 1000 ML 1,000 ML IV SCH (03:16)
[2019-09-01 06:08] LABS: BASOPHILS # (AUTO) 0.1 X10^3/uL (0.0-0.1); BASOPHILS % (AUTO) 2.1 % (0.2-1.0); EOSINOPHILS # (AUTO) 0.1 x10^3/uL (0.0-0.2); EOSINOPHILS % (AUTO) 2.3 % (0.9-2.9); HEMATOCRIT 25.9 % (36.0-47.0); HEMOGLOBIN 8.8 g/dL (12.0-16.0); LYMPHOCYTES # (AUTO) 1.3 X10^3/uL (1.3-2.9); LYMPHOCYTES % (AUTO) 42.6 % (21.0-51.0); MEAN CORPUSCULAR HEMOGLOBIN 30.6 pg (27.0-34.0); MEAN CORPUSCULAR HGB CONC 33.8 g/dL (33.0-35.0); MEAN CORPUSCULAR VOLUME 90.4 fL (80.0-100.0); MEAN PLATELET VOLUME 9.2 fL (7.4-11.0); MONOCYTES # (AUTO) 0.2 x10^3/uL (0.3-0.8); NEUTROPHILS # (AUTO) 1.4 x10^3/uL (2.2-4.8); PLATELET COUNT 186 X10^3/uL (150.0-450.0); RED BLOOD COUNT 2.86 X10^6/uL (3.5-5.4); RED CELL DISTRIBUTION WIDTH 14.2 % (11.6-16.5); WHITE BLOOD COUNT 3.1 X10^3/uL (3.6-10.0)
[2019-09-01 06:14] LABS: BLOOD UREA NITROGEN 26 mg/dL (7-18); CALCIUM 8.3 mg/dL (8.5-10.1); CARBON DIOXIDE 22.5 mmol/L (21-32); CHLORIDE 111 mmol/L (98-107); COR NA(FOR HYPERGLY) 143 mmol/L (136-145); CREATININE 0.86 mg/dL (0.55-1.02); SODIUM 143 mmol/L (136-145); eGFR NON BLACK RACES > 60 (>60)
[2019-09-01 06:35] LABS: COR CA(FOR HYPOALB) 8.9 mg/dL (8.5-10.1)
[2019-09-01 06:38] LABS: ALANINE AMINOTRANSFERASE 31 Units/L (12-78); ALBUMIN 3.2 g/dL (3.4-5.0); ALKALINE PHOSPHATASE 16 Units/L (46-116); ASPARTATE AMINO TRANSFERASE 24 Units/L (15-37)
[2019-09-01 08:55] VITALS: BP 138/62
[2019-09-01] MEDS: ZESTRIL TAB 5 MG PO SCH (09:26)
[2019-09-01] MEDS: AMARYL TAB 4 MG PO SCH (09:26)
[2019-09-01] MEDS: PROTONIX INJ 40 MG VIAL IVP SCH (09:27)
[2019-09-01] MEDS: LOPRESSOR TAB 25 MG PO SCH (09:27)
--- NOTE | 2019-09-01 16:58 | US ---
History: Abdominal pain and elevated liver function testsStudy: Ultrasound of the right upper quadrant of the abdomenComparison: NoneFindings: The right lobe of the liver measures 14.6 cm sagittal length without focal mass. There is appropriate flow in the portal vein and in hepatic veins.Visualized pancreas is unremarkable.There is no aortic aneurysm or free fluid. The IVC is patent.The gallbladder wall is prominent.There are several echogenic mobile gallstones. The common hepatic duct measures 1.9 mm diameter.The right kidney measures 9.48 x 5.08 x 5.47 cm with a resistive index of 0.66. There is no hydronephrosis or renal mass.Impression: CholelithiasisReported By:
== END 2019-09-01 11:45 | disposition home or self-care (01) ==
LOC: MED/SURG 20:11 → ER 20:11 → MED/SURG 08-31 03:35
PROVIDERS: ADMIT Obstetrics & Gynecology Obstetrics; ATTEND Obstetrics & Gynecology Obstetrics
DX: R11.2 Nausea with vomiting, unspecified; K52.89 Other specified noninfective gastroenteritis and colitis; K57.30 Diverticulosis of large intestine without perforation or abscess without bleeding; E87.2 Acidosis; N63.20 Unspecified lump in the left breast, unspecified quadrant; R10.13 Epigastric pain; N17.8 Other acute kidney failure; N18.3 Chronic kidney disease, stage 3 (moderate); K21.9 Gastro-esophageal reflux disease without esophagitis; E86.0 Dehydration; E11.65 Type 2 diabetes mellitus with hyperglycemia; F41.8 Other specified anxiety disorders; K80.20 Calculus of gallbladder without cholecystitis without obstruction; I12.9 Hypertensive chronic kidney disease with stage 1 through stage 4 chronic kidney disease, or unspecified chronic kidney disease; R94.31 Abnormal electrocardiogram [ECG] [EKG]; N30.00 Acute cystitis without hematuria
CPT/HCPCS: 36415; 71010; 71045; 71275; 74176; 76705; 80053; 80061; 81001; 82550; 82553; 83735; 84484; 85025; 85378; 85610; 85730; 87086; 93005; 94760; 96360; 96361; 96365; 96374; 96375; 99284; A4216; A4222; C9113; S0028; G0378; J0696; J1885; J2405; J2550; J3490; J7030; J7050

== ENCOUNTER 2023-02-03 23:31 | Inpatient (IN) ==
[2023-02-03 23:43] VITALS: BMI 29.8
--- NOTE | 2023-02-03 23:48 | DR.GENAD ---
HPI Time Seen Time Seen by Provider: 02/03/23 23:48 PCP Primary Care Physician: CHELSEY SCOTT Complaint/Symptoms Chief Complaint Doctors Comments: Patient states that she went to her pcp 2-3 days ago and was diagnosed with a UTI and was given ciprofloxacin. Patient took the medication for 2 days and presents with left flank pain and LLq pain.Patient states that she also has sob and has been having SMITH for 3 days.Patient has never had CHF before. Patient does not have: a h/o CHF or COPD/Asthma, lighheadness,syncope. Patient has h/o CAD and had CABG x 2 vessel after occlusion of the LAD coronary artery in the past. 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 Chief Complaint:: PT C/O NAUSEA X 3 DAYS, VOMITING X 1 DAY Source History Provided: Patient and EMS Mode of Arrival Mode of Arrival: EMS Timing Onset of Chief Complaint: 01/31/23 PMH PMH Past Medical History: Yes Past Medical History: Anxiety, Diabetes, GERD and Hypertension Past Medical History Comment: BREAST CA Past Surgical History: Yes Surgical History: CABG/Valve Surgery, [employer]IDENT[employer]PENTER Surgery, Mastectomy and Tonsillectomy Past Surgical History Comment: LEFT PARTIAL MASTECTOMY Family History History of Family Medical Conditions: Yes Family Medical History: Diabetes Mellitus and Hypertension Social History Does patient currently use any type of tobacco product: No Have you used tobacco products in the last 12 months: No Type of Tobacco Use: None Does any household member use tobacco: No Alcohol Use: None Do you use any recreational Drugs:: No Lives With: Spouse Infectious screening In the last 2 months have you had wt loss of >10#?: NO Have you had fever, night sweats or hemotysis?: No Have you traveled outside the country in the last 6 months?: No Isolation: Standard ROS Review of Systems Constitutional: No Symptoms Reported Eyes: No Symptoms Reported ENTM: No Symptoms Reported Respiratoy: Short of Breath Cardiovascular: Other (SMITH) Gastrointestinal/Abdominal: Abdominal Pain (Left flank pain) Genitourinary: No Symptoms Reported Neurological: No Symptoms Reported Musculoskeletal: No Symptoms Reported Integumentary: No Symptoms Reported Hematologic/Lymphatic: No Symptoms Reported Endocrine: No Symptoms Reported Psychiatric: No Symptoms Reported All Other Systems: Reviewed and Negative PE Vital Signs Vitals: Temperature 98.6 F Pulse Rate 78 Respiratory Rate 18 Blood Pressure [Left Arm] 176/93 Blood Pressure 155/72 O2 Sat by Pulse Oximetry 99 General Limitations: No Limitations General Appearance: Alert and In No Apparent Distress Head Head Exam: Normal Inspection Eyes Eye exam: Normal Appearance ENT ENT Exam: Normal Exam External Ear Exam: Normal External Inspection TM/Canal Exam: Bilateral: Normal Nose Exam: Normal Nose Exam Mouth Exam: Normal Inspection Throat Exam: Normal Inspection Neck Neck Exam: Normal Inspection Chest Chest Inspection: Normal Inspection Respiratory Respiratory Exam: Normal Lung Sounds Bilat Respiratory Exam: Bilateral: Clear to Auscultation Cardiovascular Cardiovascular Exam: Regular Rate and Normal Rhythm Abdominal Exam Abdominal Exam: Normal Inspection, Normal Bowel Sounds and Soft Extremities Extremities Exam: Normal Inspection Back Back Exam: Normal Inspection Neurologic Neurological Exam: Alert, Oriented X3 and CN II-XII Intact Psychiatric Psychiatric Exam: Normal Affect and Normal Mood Skin Skin Exam: Warm, Dry, Intact and Normal Color MDM Differential Diagnosis Differential Diagnosis: Pyelonephritis,CHF,CT,Pneumonia,electrolyte abnormalities COURSE Treatment Treatment: Patient was placed in a monitored room and IV access was initiated.Patient's Abd/pelvis CT w/o contrast revealed pulmonary edema, BNP is 1820. Patient was given lasix 20mg iv and had UO 900ml. Patient's 02 sat decreased to 82-88. She was placed on 2L nc and 02 sat increased to 97-98. Patient does not have 02 at home. Patient's EKG #1 revealed a RBBB and NSR /Troponin was negative/nonspecific t wave changes. EKG #2 revealed RBBB/NSR/ nonspecific Twave changes/Troponin was nml. Patient had Cabg x 2 vessel in the past at [facility] in [place] in the past . 05:20 Patient has been accepted to Dr Vu's service for further inpatient management.Patient is currently stable in the ED. ROR Labs Reviewed Laboratory Results Reviewed?: Yes Result Diagrams: 02/04/23 00:28 02/04/23 00:28 Laboratory: WBC 6.3 X10^3/uL (3.6-10.0) 02/04/23 00:28 RBC 3.35 X10^6/uL (3.5-5.4) L 02/04/23 00:28 Hgb 8.3 g/dL (12.0-16.0) L 02/04/23 00:28 Hct 26.1 % (36.0-47.0) L 02/04/23 00:28 MCV 78.0 fL (80.0-100.0) L 02/04/23 00:28 MCH 24.7 pg (27.0-34.0) L 02/04/23 00: MCHC 31.7 g/dL (33.0-35.0) L 02/04/23 00: RDW 17.9 % (11.6-16.5) H 02/04/23 00: Plt Count 307 X10^3/uL (150.0-450.0) 02/04/23 00: MPV 8.9 fL (7.4-11.0) 02/04/23 00: Neut % (Auto) 76.4 % (42.0-75.0) H 02/04/23 00: Lymph % (Auto) 15.2 % (21.0-51.0) L 02/04/23: [place] % (Auto) 6.3 % (0.0-13.0) 02/04/23: Eos % (Auto) 1.2 % (0.9-2.9) 02/04/23 00: Baso % (Auto) 0.9 % (0.2-1.0) 02/04/23 00: Neut # (Auto) 4.8 x10^3/uL (2.2-4.8) 02/04/23 00: Lymph # (Auto) 1.0 X10^3/uL (1.3-2.9) L 02/04/23 00: [place] # (Auto) 0.4 x10^3/uL (0.3-0.8) 02/04/23 00: Eos # (Auto) 0.1 x10^3/uL (0.0-0.2) 02/04/23 00: Baso # (Auto) 0.1 X10^3/uL (0.0-0.1) 02/04/23 00: Absolute Nucleated RBC 0.3 /100WBC 02/04/23: PT 16.5 SECONDS (11.8-14.3) 02/04/23 00: INR Target Range - 02/04/23 00:28 INR 1.35 (0.8-1.3) H 02/04/23 00:28 APTT 32.8 SECONDS (22.9-36.5) 02/04/23 00:28 PTT Comment - 02/04/23 00:28 Sodium 137 mmol/L (136-145) 02/04/23 00:28 Corrected Sodium 139 mmol/L (136-145) 02/04/23 00:28 Potassium 4.3 mmol/L (3.5-5.1) 02/04/23 00:28 Chloride 101 mmol/L (98-107) 02/04/23 00:28 Carbon Dioxide 24.7 mmol/L (21-32) 02/04/23 00:28 BUN 29 mg/dL (7-18) H 02/04/23 00:28 Creatinine 1.62 mg/dL (0.55-1.02) H 02/04/23 00:28 Est GFR (MDRD) Af Amer 40 (>60) L 02/04/23 00: Est GFR (MDRD) Non-Af 33 (>60) L 02/04/23 00:28 Glucose 189 mg/dL (65-99) H 02/04/23 00:28 Calcium 9.0 mg/dL (8.5-10.1) 02/04/23 00:28 Corrected Calcium TNP 02/04/23 00:28 Total Bilirubin 1.20 mg/dL (0.2-1.0) H 02/04/23 00:28 AST 30 Units/L (15-37) 02/04/23 00:28 ALT 30 Units/L (12-78) 02/04/23 00:28 Alkaline Phosphatase 35 Units/L (46-116) L 02/04/23 00:28 Creatine Kinase 65 Units/L (26-192) 02/04/23 03:46 Troponin I High Sens 51.5 ng/L (4.0-60.0) 02/04/23 03:46 B-Natriuretic Peptide 1820 pg/mL (0-79) H* 02/04/23 00:28 Total Protein 7.4 g/dL (6.4-8.2) 02/04/23 00:28 Albumin 4.1 g/dL (3.4-5.0) 02/04/23 00:28 Globulin 3.3 g/dL (2.5-4.5) 02/04/23 00:28 Albumin/Globulin Ratio 1.2 Ratio (1.1-2.1) 02/04/23 00:28 Specimen Type Clean catch urine 02/04/23 02:41 Urine Color Pale yellow (YELLOW) 02/04/23 02:41 Urine Appearance Clear (CLEAR) 02/04/23 02:41 Urine pH 5.0 (5.0 - 8.0) 02/04/23 02:41 Ur Specific [place] 1.015 (1.000-1.030) 02/04/23 02:41 Urine Protein 2+ (NEGATIVE) 02/04/23 02:41 Urine Glucose (UA) Negative (NEGATIVE) 02/04/23 02:41 Urine Ketones 1+ (NEGATIVE) 02/04/23 02:41 Urine Blood Negative (NEGATIVE) 02/04/23 02:41 Urine Nitrite Negative (NEGATIVE) 02/04/23 02:41 Urine Bilirubin Negative (NEGATIVE) 02/04/23 02:41 Urine Urobilinogen Normal (NORMAL) 02/04/23 02:41 Ur Leukocyte Esterase Negative (NEGATIVE) 02/04/23 02:41 Urine RBC None seen /HPF (0-3) 02/04/23 02:41 Urine WBC None seen /HPF (0-5) 02/04/23 02:41 Ur Squamous Epith Cells Rare /HPF (NEGATIVE) 02/04/23 02:41 Urine Bacteria Negative /HPF (NEGATIVE) 02/04/23 02:41 Ur Culture Indicated? No/not indicated 02/04/23 02:41 SARS-CoV-2 (PCR) Negative (NEGATIVE) 02/03/23 23:42 Influenza Type A (PCR) Negative (NEGATIVE) 02/03/23 23:42 Influenza Type B (PCR) Negative (NEGATIVE) 02/03/23 23:42 RSV (PCR) Negative (NEGATIVE) 02/03/23 23:42 XRAY XRAY Interpreted by: Radiologist X-ray Results: HISTORY LT FLANK PAIN STUDY ABDOMEN/PELVIS W/O CON COMPARISON None TECHNIQUE Multiple axial images of the abdomen and pelvis were obtained from the lung bases to the pubic symphysis without the administration of IV contrast. Dose reduction techniques including Automated Exposure Control (AEC) and adjustment of mA and kV were utilized. FINDINGS Interseptal thickening and ground-glass airspace opacities in the lung bases suggest pulmonary edema. The visible portions of the heart are enlarged. The abdominal aorta tapers normally with moderate calcified atherosclerotic plaque. No liver lesion visible. Stones are noted in the gallbladder. There is mild stranding around the wall of the gallbladder versus pericholecystic fluid. Normal adrenal glands. No renal stones or hydronephrosis. No ureteral stones. Normal spleen with small splenules. Atrophy and fatty infiltration of the [place] cre[place]. Decompressed stomach. Severe diverticular changes of the descending and sigmoid colon without CT evidence of complication. Normal appendix identified. Small bowel is not obstructed. No pelvic free fluid. No free air. No lymphadenopathy. IMPRESSION Cholelithiasis with mild inflammatory stranding around the gallbladder versus pericholecystic fluid. Consider right upper quadrant ultrasound for further detail. Cholecystitis may be present. No renal stones or obstructive uropathy. Signs of volume overload/congestive heart failure in the lung bases. Electronically signed by: Nish Morales (February 04, 2023 01:48:29) EKG Compared to prior EKG Dated: 02/04/23 Rate: 73 [place]: Normal (Negative) Block: RBBB Opioid Opioid Risk Tool Age (Noah box if 16-45): No History of Preadolescent Sexual Abuse: No Total: 0 Total Score Risk Category: Low Risk Copyright: Cortez WALLER predicting aberrant behaviors Discharge Plan Diagnosis Discharge Problem: Acute CHF (congestive heart failure), AZALIA (acute kidney injury) Discharge Plan Patient Disposition: 09 ADMITTED INPATIENT Condition: Stable Prescriptions: No Action temazepam 30 mg capsule 30 mg PO HS aspirin [Aspir-81] 81 mg Tablet,Delayed Release (Dr/Ec) 81 mg PO DAILY ascorbic acid (vitamin C) [Vitamin C] 1,000 mg Tablet 1 g PO DAILY zinc 50 mg Tablet 50 mg PO DAILY potassium chloride 10 mEq capsule, extended release 10 meq PO DAILY naproxen 375 mg tablet 375 mg PO BID sucralfate 1 gram tablet 1 tab PO QID lisinopril 20 mg tablet 1 tab PO DAILY ciprofloxacin HCl 500 mg tablet 1 tab PO BID omeprazole 40 mg capsule,delayed release(DR/EC) 1 cap PO DAILY tramadol 50 mg tablet 1 tab PO Q6H PRN famotidine 20 mg tablet 1 tab PO BID glimepiride 4 mg tablet 4 mg PO BID gabapentin 100 mg capsule 100 mg PO BID letrozole 2.5 mg tablet 2.5 mg PO DAILY metformin 500 mg tablet extended release 24 hr 500 mg PO TID metoprolol tartrate 25 mg tablet 25 mg PO DAILY fenofibrate nanocrystallized 145 mg tablet 145 mg PO QHS cholecalciferol (vitamin D3) [Vitamin D3] 50 mcg (2,000 unit) Capsule 50 mcg PO QDAY omega [id number]-fish oil [Fish Oil] 1,000 mg (120 mg-180 mg) Capsule 2 cap PO QDAY Health Concerns: Post Hospitalization: new medications and changes needed to prevent readmission or further decline. Pt educated and given instructions on all concerns. Plan of Treatment: Admit Observation Orders to Discharge Patient Discharge Orders: Transfer (Routine); Ordered 02/04/23 Ordered By: Thu Ann Follow ups/Referrals Follow ups/Referrals: REYNALDO SCOTT [Primary Care Provider] - 3 days ADDITIONAL NOTES Additional Notes Additional Notes: EKG #2: Rate 77, [place] Negative, Rhythm sinus tachycardia with 2nd degree av block
[2023-02-04] MEDS ORDERED: XANAX ONE ×2 (00:20→11:33)
[2023-02-04] MEDS: XANAX PO ONE ×2 (00:20→11:51)
[2023-02-04 00:38] LABS: BASOPHILS # (AUTO) 0.1 X10^3/uL (0.0-0.1); BASOPHILS % (AUTO) 0.9 % (0.2-1.0); EOSINOPHILS # (AUTO) 0.1 x10^3/uL (0.0-0.2); EOSINOPHILS % (AUTO) 1.2 % (0.9-2.9); HEMATOCRIT 26.1 % (36.0-47.0); HEMOGLOBIN 8.3 g/dL (12.0-16.0); LYMPHOCYTES % (AUTO) 15.2 % (21.0-51.0); MEAN CORPUSCULAR HEMOGLOBIN 24.7 pg (27.0-34.0); MEAN CORPUSCULAR HGB CONC 31.7 g/dL (33.0-35.0); MEAN PLATELET VOLUME 8.9 fL (7.4-11.0); MONOCYTES # (AUTO) 0.4 x10^3/uL (0.3-0.8); MONOCYTES % (AUTO) 6.3 % (0.0-13.0); NEUTROPHILS # (AUTO) 4.8 x10^3/uL (2.2-4.8); NEUTROPHILS % (AUTO) 76.4 % (42.0-75.0); PLATELET COUNT 307 X10^3/uL (150.0-450.0); RED BLOOD COUNT 3.35 X10^6/uL (3.5-5.4); RED CELL DISTRIBUTION WIDTH 17.9 % (11.6-16.5); WHITE BLOOD COUNT 6.3 X10^3/uL (3.6-10.0)
[2023-02-04 01:07] LABS: ALANINE AMINOTRANSFERASE 30 Units/L (12-78); ALBUMIN 4.1 g/dL (3.4-5.0); ALKALINE PHOSPHATASE 35 Units/L (46-116); ASPARTATE AMINO TRANSFERASE 30 Units/L (15-37); BLOOD UREA NITROGEN 29 mg/dL (7-18); CARBON DIOXIDE 24.7 mmol/L (21-32); CHLORIDE 101 mmol/L (98-107); COR NA(FOR HYPERGLY) 139 mmol/L (136-145); CREATININE 1.62 mg/dL (0.55-1.02); GLUCOSE 189 mg/dL (65-99); POTASSIUM 4.3 mmol/L (3.5-5.1); SODIUM 137 mmol/L (136-145); TOTAL PROTEIN 7.4 g/dL (6.4-8.2); eGFR NON BLACK RACES 33 (>60)
[2023-02-04] MEDS ORDERED: ZOFRAN INJ 4 MG VIAL IVP ONE (01:38)
[2023-02-04] MEDS ORDERED: ZOFRAN INJ 4 MG VIAL ONE (01:40)
--- NOTE | 2023-02-04 01:49 | CT ---
HISTORYLT FLANK PAINSTUDYABDOMEN/PELVIS W/O CONCOMPARISONNoneTECHNIQUEMultiple axial images of the abdomen and pelvis were obtained from the lung bases to the pubic symphysis without the administration of IV contrast. Dose reduction techniques including Automated Exposure Control (AEC) and adjustment of mA and kV were utilized.FINDINGSInterseptal thickening and ground-glass airspace opacities in the lung bases suggest pulmonary edema.The visible portions of the heart are enlarged.The abdominal aorta tapers normally with moderate calcified atherosclerotic plaque. No liver lesion visible.Stones are noted in the gallbladder. There is mild stranding around the wall of the gallbladder versus pericholecystic fluid.Normal adrenal glands. No renal stones or hydronephrosis. No ureteral stones. Normal spleen with small splenules. Atrophy and fatty infiltration of the pancreas. Decompressed stomach.Severe diverticular changes of the descending and sigmoid colon without CT evidence of complication.Normal appendix identified. Small bowel is not obstructed. No pelvic free fluid. No free air. No lymphadenopathy.IMPRESSIONCholelithiasis with mild inflammatory stranding around the gallbladder versus pericholecystic fluid. Consider right upper quadrant ultrasound for further detail. Cholecystitis may be present.No renal stones or obstructive uropathy.Signs of volume overload/congestive heart failure in the lung bases.Electronically signed by: Nish Morales (February 04, 2023 01:48:29)
[2023-02-04] MEDS ORDERED: ZOSYN VIAL 3.375 GRAMS 3.375 G in NS 100 ML IV 100 ML IV ONE (02:06)
[2023-02-04] MEDS ORDERED: NORCO 10/325 TAB PO ONE (02:06)
[2023-02-04] MEDS ORDERED: ZOSYN VIAL 3.375 GRAMS IV ONE (02:08)
[2023-02-04] MEDS ORDERED: NS 100 ML IV 100 ML ONE (02:08)
[2023-02-04] MEDS ORDERED: NORCO 10/325 TAB ONE (02:08)
[2023-02-04 02:50] LABS: BILIRUBIN,URINE NEGATIVE (NEGATIVE); BLOOD/HEMOGLOBIN,URINE NEGATIVE (NEGATIVE); GLUCOSE, URINE NEGATIVE (NEGATIVE); KETONES,URINE 1+ (NEGATIVE); LEUKOCYTE ESTERASE ,URINE NEGATIVE (NEGATIVE); NITRITES,URINE NEGATIVE (NEGATIVE); PROTEIN,URINE 2+ (NEGATIVE); UROBILINOGEN,URINE NORMAL (NORMAL)
[2023-02-04 02:54] LABS: APPEARANCE,URINE CLEAR (CLEAR); BACTERIA,URINE NEGATIVE /HPF (NEGATIVE); COLOR,URINE PALE YELLOW (YELLOW); RBC,URINE NONE SEEN /HPF (0-3); SQUAMOUS EPITHELIAL CELL,UR RARE /HPF (NEGATIVE)
[2023-02-04] MEDS ORDERED: LASIX IVP ONE (03:15)
[2023-02-04] MEDS ORDERED: LASIX ONE (03:18)
--- NOTE | 2023-02-04 03:30 | EKG ---
Test Reason : sob Blood Pressure : */* mmHG Vent. Rate : 73 BPM Atrial Rate : 73 BPM P-R Int : 130 ms QRS Dur : 122 ms QT Int : 448 ms P-R-T Axes : 55 -28 46 degrees QTc Int : 493 ms Normal sinus rhythm Right bundle branch block Minimal voltage criteria for LVH, may be normal variant ( R in aVL ) Abnormal ECG No previous ECGs available Confirmed by Castillo Espinosa ([id number]) on 02/04/2023 7:42:14 PM Referred By: Confirmed By: Castillo Espinosa
[2023-02-04 03:36] LABS: INR 1.35 (0.8-1.3)
--- NOTE | 2023-02-04 05:20 | EKG ---
Test Reason : sob Blood Pressure : */* mmHG Vent. Rate : 77 BPM Atrial Rate : 153 BPM P-R Int : 180 ms QRS Dur : 122 ms QT Int : 248 ms P-R-T Axes : 51 -31 143 degrees QTc Int : 280 ms Normal sinus rhythm Left axis deviation Right bundle branch block Minimal voltage criteria for LVH, may be normal variant ( R in aVL ) Abnormal ECG When compared with ECG of 04-FEB-2023 03:28, (Unconfirmed) Sinus rhythm is now with 2nd degree AV block Nonspecific T wave abnormality, worse in Anterolateral leads QT has shortened Confirmed by Castillo Espinosa ([id number]) on 02/04/2023 7:42:06 PM Referred By: Confirmed By: Castillo Espinosa
--- NOTE | 2023-02-04 06:22 | DR.GENAD ---
HPI Time Seen Time Seen by Provider: 02/03/23 23:48 PCP Primary Care Physician: CHELSEY SCOTT Complaint/Symptoms Chief Complaint:: PT C/O NAUSEA X 3 DAYS, VOMITING X 1 DAY COVID-19 Coronavirus risk:travel/contact w/high risk person: No Has patient experienced Coronavirus symptoms: No Source History Provided: Patient and EMS Mode of Arrival Mode of Arrival: EMS Timing Onset of Chief Complaint: 01/31/23 PMH PMH Past Medical History: Yes Past Medical History: Anxiety, Diabetes, GERD and Hypertension Past Medical History Comment: BREAST CA Past Surgical History: Yes Surgical History: CABG/Valve Surgery, [employer] Surgery, Mastectomy and Tonsillectomy Past Surgical History Comment: LEFT PARTIAL MASTECTOMY Family History History of Family Medical Conditions: Yes Family Medical History: Diabetes Mellitus and Hypertension Social History Does patient currently use any type of tobacco product: No Have you used tobacco products in the last 12 months: No Type of Tobacco Use: None Does any household member use tobacco: No Alcohol Use: None Do you use any recreational Drugs:: No Lives With: Spouse Travel Risk Coronavirus risk:travel/contact w/high risk person: No Has patient experienced Coronavirus symptoms: No Infectious screening In the last 2 months have you had wt loss of >10#?: NO Have you had fever, night sweats or hemotysis?: No Have you traveled outside the country in the last 6 months?: No Isolation: Standard PE Vital Signs Vitals: Temperature 98.6 F Pulse Rate 78 Respiratory Rate 18 Blood Pressure [Left Arm] 176/93 Blood Pressure 155/72 O2 Sat by Pulse Oximetry 99 ROR Labs Reviewed Result Diagrams: 02/04/23 00:28 02/04/23 00:28 Laboratory: WBC 6.3 X10^3/uL (3.6-10.0) 02/04/23 00:28 RBC 3.35 X10^6/uL (3.5-5.4) L 02/04/23 00:28 Hgb 8.3 g/dL (12.0-16.0) L 02/04/23 00:28 Hct 26.1 % (36.0-47.0) L 02/04/23 00:28 MCV 78.0 fL (80.0-100.0) L 02/04/23 00:28 MCH 24.7 pg (27.0-34.0) L 02/04/23 00:28 MCHC 31.7 g/dL (33.0-35.0) L 02/04/23 00: RDW 17.9 % (11.6-16.5) H 02/04/23 00: Plt Count 307 X10^3/uL (150.0-450.0) 02/04/23 00: MPV 8.9 fL (7.4-11.0) 02/04/23 00: Neut % (Auto) 76.4 % (42.0-75.0) H 02/04/23 00: Lymph % (Auto) 15.2 % (21.0-51.0) L 02/04/23: [place] % (Auto) 6.3 % (0.0-13.0) 02/04/23: Eos % (Auto) 1.2 % (0.9-2.9) 02/04/23 00: Baso % (Auto) 0.9 % (0.2-1.0) 02/04/23 00: Neut # (Auto) 4.8 x10^3/uL (2.2-4.8) 02/04/23 00: Lymph # (Auto) 1.0 X10^3/uL (1.3-2.9) L 02/04/23 00: [place] # (Auto) 0.4 x10^3/uL (0.3-0.8) 02/04/23 00: Eos # (Auto) 0.1 x10^3/uL (0.0-0.2) 02/04/23 00: Baso # (Auto) 0.1 X10^3/uL (0.0-0.1) 02/04/23 00: Absolute Nucleated RBC 0.3 /100WBC 02/04/23: PT 16.5 SECONDS (11.8-14.3) 02/04/23: INR Target Range - 02/04/23: INR 1.35 (0.8-1.3) H 02/04/23: APTT 32.8 SECONDS (22.9-36.5) 02/04/23: PTT Comment - 02/04/23 00:28 Sodium 137 mmol/L (136-145) 02/04/23 00:28 Corrected Sodium 139 mmol/L (136-145) 02/04/23 00:28 Potassium 4.3 mmol/L (3.5-5.1) 02/04/23 00: Chloride 101 mmol/L (98-107) 02/04/23 00: Carbon Dioxide 24.7 mmol/L (21-32) 02/04/23 00: BUN 29 mg/dL (7-18) H 02/04/23 00:28 Creatinine 1.62 mg/dL (0.55-1.02) H 02/04/23 00:28 Est GFR (MDRD) Af Amer 40 (>60) L 02/04/23 00: Est GFR (MDRD) Non-Af 33 (>60) L 02/04/23 00: Glucose 189 mg/dL (65-99) H 02/04/23 00:28 Calcium 9.0 mg/dL (8.5-10.1) 02/04/23 00: Corrected Calcium TNP 02/04/23 00:28 Total Bilirubin 1.20 mg/dL (0.2-1.0) H 02/04/23 00:28 AST 30 Units/L (15-37) 02/04/23 00:28 ALT 30 Units/L (12-78) 02/04/23 00:28 Alkaline Phosphatase 35 Units/L (46-116) L 02/04/23 00:28 Creatine Kinase 65 Units/L (26-192) 02/04/23 03:46 Troponin I High Sens 51.5 ng/L (4.0-60.0) 02/04/23 03:46 B-Natriuretic Peptide 1820 pg/mL (0-79) H* 02/04/23 00:28 Total Protein 7.4 g/dL (6.4-8.2) 02/04/23 00:28 Albumin 4.1 g/dL (3.4-5.0) 02/04/23 00:28 Globulin 3.3 g/dL (2.5-4.5) 02/04/23 00:28 Albumin/Globulin Ratio 1.2 Ratio (1.1-2.1) 02/04/23 00:28 Specimen Type Clean catch urine 02/04/23 02:41 Urine Color Pale yellow (YELLOW) 02/04/23 02:41 Urine Appearance Clear (CLEAR) 02/04/23 02:41 Urine pH 5.0 (5.0 - 8.0) 02/04/23 02:41 Ur Specific [place] 1.015 (1.000-1.030) 02/04/23 02:41 Urine Protein 2+ (NEGATIVE) 02/04/23 02:41 Urine Glucose (UA) Negative (NEGATIVE) 02/04/23 02:41 Urine Ketones 1+ (NEGATIVE) 02/04/23 02:41 Urine Blood Negative (NEGATIVE) 02/04/23 02:41 Urine Nitrite Negative (NEGATIVE) 02/04/23 02:41 Urine Bilirubin Negative (NEGATIVE) 02/04/23 02:41 Urine Urobilinogen Normal (NORMAL) 02/04/23 02:41 Ur Leukocyte Esterase Negative (NEGATIVE) 02/04/23 02:41 Urine RBC None seen /HPF (0-3) 02/04/23 02:41 Urine WBC None seen /HPF (0-5) 02/04/23 02:41 Ur Squamous Epith Cells Rare /HPF (NEGATIVE) 02/04/23 02:41 Urine Bacteria Negative /HPF (NEGATIVE) 02/04/23 02:41 Ur Culture Indicated? No/not indicated 02/04/23 02:41 SARS-CoV-2 (PCR) Negative (NEGATIVE) 02/03/23 23:42 Influenza Type A (PCR) Negative (NEGATIVE) 02/03/23 23:42 Influenza Type B (PCR) Negative (NEGATIVE) 02/03/23 23:42 RSV (PCR) Negative (NEGATIVE) 02/03/23 23:42 Opioid Opioid Risk Tool Age (Noah box if 16-45): No History of Preadolescent Sexual Abuse: No Total: 0 Total Score Risk Category: Low Risk Copyright: Cortez WALLER predicting aberrant behaviors Discharge Plan Diagnosis Discharge Problem: Acute CHF (congestive heart failure), AZALIA (acute kidney injury), Cholelithiasis Discharge Plan Patient Disposition: 09 ADMITTED INPATIENT Condition: Stable Prescriptions: No Action temazepam 30 mg capsule 30 mg PO HS aspirin [Aspir-81] 81 mg Tablet,Delayed Release (Dr/Ec) 81 mg PO DAILY ascorbic acid (vitamin C) [Vitamin C] 1,000 mg Tablet 1 g PO DAILY zinc 50 mg Tablet 50 mg PO DAILY potassium chloride 10 mEq capsule, extended release 10 meq PO DAILY naproxen 375 mg tablet 375 mg PO BID sucralfate 1 gram tablet 1 tab PO QID lisinopril 20 mg tablet 1 tab PO DAILY ciprofloxacin HCl 500 mg tablet 1 tab PO BID omeprazole 40 mg capsule,delayed release(DR/EC) 1 cap PO DAILY tramadol 50 mg tablet 1 tab PO Q6H PRN famotidine 20 mg tablet 1 tab PO BID glimepiride 4 mg tablet 4 mg PO BID gabapentin 100 mg capsule 100 mg PO BID letrozole 2.5 mg tablet 2.5 mg PO DAILY metformin 500 mg tablet extended release 24 hr 500 mg PO TID metoprolol tartrate 25 mg tablet 25 mg PO DAILY fenofibrate nanocrystallized 145 mg tablet 145 mg PO QHS cholecalciferol (vitamin D3) [Vitamin D3] 50 mcg (2,000 unit) Capsule 50 mcg PO QDAY omega 3-bhb-sqy-fish oil [Fish Oil] 1,000 mg (120 mg-180 mg) Capsule 2 cap PO QDAY Health Concerns: Post Hospitalization: new medications and changes needed to prevent readmission or further decline. Pt educated and given instructions on all concerns. Plan of Treatment: Admit Observation Orders to Discharge Patient Discharge Orders: Transfer (Routine); Ordered 02/04/23 Ordered By: Thu Ann Follow ups/Referrals Follow ups/Referrals: REYNALDO SCOTT [Primary Care Provider] - 3 days
[2023-02-04] MEDS ORDERED: NAPROXEN 375 MG PO SCH ×2 (09:00)
[2023-02-04] MEDS ORDERED: PATIENT'S HOME MEDICATION (Cholecalciferol (Vitamin D3) [Vitamin D3] 50 mcg (2,000 unit) C PO SCH (09:00)
[2023-02-04] MEDS ORDERED: PATIENT'S HOME MEDICATION (Zinc 50 mg Tablet) PO SCH (09:00)
[2023-02-04] MEDS ORDERED: VITAMIN C PO SCH (09:00)
[2023-02-04] MEDS ORDERED: OMEGA DHA EPA FISH OIL PO SCH ×2 (09:00)
[2023-02-04] MEDS ORDERED: [UNRECOGNIZED DRUG - OTHER] PO SCH ×2 (09:00)
[2023-02-04] MEDS ORDERED: ZESTRIL TAB 20 MG ONE (09:48)
[2023-02-04] MEDS: ZINC SULFATE PO SCH (09:53)
[2023-02-04] MEDS: PriLOSEC PO SCH (09:53)
[2023-02-04] MEDS: PEPCID TAB 20 MG PO SCH ×2 (09:56→21:05)
[2023-02-04] MEDS: NEURONTIN CAP 100 MG PO SCH ×2 (09:56→21:05)
[2023-02-04] MEDS: LOPRESSOR TAB 25 MG PO SCH (09:56)
[2023-02-04] MEDS: ZESTRIL TAB 20 MG PO SCH (09:56)
[2023-02-04] MEDS: ASPIRIN EC 81 MG PO SCH (09:56)
[2023-02-04] MEDS: MICRO K EXTEN CAP 10 MEQ PO SCH (09:56)
[2023-02-04] MEDS: VITAMIN D3 25 mcg (1,000 UNITS) PO SCH (09:57)
--- NOTE | 2023-02-04 09:59 | RAD ---
HISTORYSOBSTUDYAP chestCOMPARISONDecember 2018 report onlyFINDINGSHeart size is upper normal with sternal wires. Pulmonary vascular congestion is noted with diffuse interstitial prominence in both lungs. There is no evidence for airspace consolidation/pneumonia or pleural fluid.IMPRESSIONCardiac prominence, previous sternotomy with mild pulmonary vascular congestion. Previous images for direct comparison are not currently available.Electronically signed by: CONCEPCION FOSTER (February 04, 2023 09:58:29)
[2023-02-04] MEDS ORDERED: NAPROSYN PO PRN (10:00)
[2023-02-04] MEDS: CARAFATE PO SCH ×4 (10:22→21:05)
[2023-02-04] MEDS ORDERED: SEROquel TAB 25 mg PO ONE (11:34)
[2023-02-04] MEDS ORDERED: SEROquel TAB 25 mg PO SCH (12:00)
[2023-02-04 13:17] LABS: AMYLASE 26 Units/L (25-115); LIPASE 160 Units/L (73-393)
--- NOTE | 2023-02-04 13:18 | DR.H&P ---
H&P - History & Physical for Day of: H&P Date: 02/04/23 - History of Present Illness History of Present Illness: Patient is 72WF, ER admission, states that she went to her pcp 2-3 days ago and was diagnosed with a UTI and was given ciprofloxacin. Patient took the medication for 2 days and presents with left flank pain and LLq pain.Patient states that she also has sob and has been having SMITH for 3 days.Patient has never had CHF before. Patient does not have: a h/o CHF or COPD/Asthma, lighheadness,syncope. Patient has h/o CAD and had CABG x 2 vessel after occlusion of the LAD coronary artery in the past. 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 - Past Medical History Past Medical History: Anxiety, Coronary Artery Disease, Diabetes, GERD, Hypertension - Past Surgical History Surgical History: CABG/Valve Surgery, Mastectomy - Family History Family Medical History: Diabetes Mellitus, Cancer, [place] - Social History Does patient currently use any type of tobacco product: No Have you used tobacco products in the last 12 months: No Type of Tobacco Use: None Does any household member use tobacco: No Alcohol Use: None Drug Use: None - Medications Home Medications: Iazgyrn-QQL-HxH Reductase Inhibitor Allergy (Verified 02/03/23 23:49) CONTINUE taking the following medications cholecalciferol (vitamin D3) 50 mcg (2,000 unit) capsule (Vitamin D3) 50 mcg PO QDAY 02/03/23 [History] ciprofloxacin HCl 500 mg tablet 1 tab PO BID 02/03/23 [History] famotidine 20 mg tablet 1 tab PO BID 02/03/23 [History] fenofibrate nanocrystallized 145 mg tablet 145 mg PO QHS 02/03/23 [History] gabapentin 100 mg capsule 100 mg PO BID 02/03/23 [History] glimepiride 4 mg tablet 4 mg PO BID 02/03/23 [History] letrozole 2.5 mg tablet 2.5 mg PO DAILY 02/03/23 [History] lisinopril 20 mg tablet 1 tab PO DAILY 02/03/23 [History] metformin 500 mg tablet,extended release 24 hr 500 mg PO TID 02/03/23 [History] metoprolol tartrate 25 mg tablet 25 mg PO DAILY 02/03/23 [History] naproxen 375 mg tablet 375 mg PO BID 02/03/23 [History] omega 4-rxn-dit-fish oil 1,000 mg (120 mg-180 mg) capsule (Fish Oil) 2 cap PO QDAY 02/03/23 [History] omeprazole 40 mg capsule,delayed release 1 cap PO DAILY 02/03/23 [History] potassium chloride 10 mEq capsule,extended release 10 meq PO DAILY 02/03/23 [History] sucralfate 1 gram tablet 1 tab PO QID 02/03/23 [History] tramadol 50 mg tablet 1 tab PO Q6H PRN 02/03/23 [History] - Review of Systems Constitutional: Weakness Eyes: No Symptoms Reported ENT: No Symptoms Reported Respiratory: Shortness of Breath, SOB with Excertion Cardiovascular: Palpitations Gastrointestinal: Nausea, Vomiting Genitourinary: No Symptoms Reported Musculoskeletal: No Symptoms Reported Skin: No Symptoms Reported Neurological: No Symptoms Reported, Other (very anxious) - Physical Exam Vital Signs: Temperature 98.6 F Pulse Rate [Left Radial] 78 Pulse Rate 78 Respiratory Rate 18 Blood Pressure [Left Arm] 144/67 Blood Pressure 155/72 O2 Sat by Pulse Oximetry 94 Oriented: Normal Eyes: Normal Ear: Normal Nose: Normal Throat: Normal Respiratory: RLL Diminished, LLL Diminished Cardiovascular: Normal : Normal Auscultation: Bowel Sounds: Normal Palpation: Normal Tenderness: negative: Rebound, Guarding, Rigidity Skin: Decreased Turgur Musculoskeletal: Normal Psychiatric: Anxiety Mood Description: Anxious Affect: Anxious - Assessment/Plan (1) Acute CHF (congestive heart failure) Status: Acute Plan: ADMIT, IV LASIX THERAPY, STRICT I&OS. CARDIAC ENZYMES, EKG. OCCULT STOOL, ANEMIA PANEL. REPEAT AM CXR, REPEAT AM BNP. CARDIAC MONITORING. AMYLASE AND LIPASE. FLP. ECHO (2) CAD (coronary artery disease) Status: Acute (3) Uncontrolled hypertension Status: Acute (4) Acute gastroenteritis Status: Acute (5) Diabetes mellitus type 2, uncontrolled Qualifiers: Glycemic state: with hyperglycemia Qualified Code(s): E11.65 - Type 2 diabetes mellitus with hyperglycemia Status: Acute - Allergies Allergies/Adverse Reactions: Allergies Allergy/AdvReac Type Severity Reaction Status Date / Time [id number]-[id number] Reductase Allergy Verified 02/03/23 23:49 Inhibitor
[2023-02-04] MEDS: NovoLIN R (or HumuLIN R) SUBCUT PRN (17:03)
[2023-02-04] MEDS: NORCO 5/325 MG TAB PO PRN ×2 (17:42→23:18)
[2023-02-04] MEDS ORDERED: RESTORIL CAP 15 MG PO ONE (19:42)
[2023-02-04] MEDS ORDERED: TRICOR TAB 145 MG PO ONE (19:42)
[2023-02-04] MEDS ORDERED: COLACE CAP 100 MG PO ONE (20:58)
[2023-02-04] MEDS: TRICOR TAB 145 MG PO SCH (21:05)
[2023-02-04] MEDS: RESTORIL CAP 15 MG PO SCH (21:06)
[2023-02-04] MEDS: COLACE CAP 100 MG PO PRN (21:21)
[2023-02-05 05:14] LABS: BASOPHILS # (AUTO) 0.1 X10^3/uL (0.0-0.1); BASOPHILS % (AUTO) 2.2 % (0.2-1.0); EOSINOPHILS # (AUTO) 0.2 x10^3/uL (0.0-0.2); EOSINOPHILS % (AUTO) 5.3 % (0.9-2.9); HEMATOCRIT 22.6 % (36.0-47.0); HEMOGLOBIN 7.3 g/dL (12.0-16.0); LYMPHOCYTES # (AUTO) 1.1 X10^3/uL (1.3-2.9); LYMPHOCYTES % (AUTO) 27.8 % (21.0-51.0); MEAN CORPUSCULAR HEMOGLOBIN 25.2 pg (27.0-34.0); MEAN CORPUSCULAR HGB CONC 32.3 g/dL (33.0-35.0); MEAN CORPUSCULAR VOLUME 78.1 fL (80.0-100.0); MEAN PLATELET VOLUME 9.2 fL (7.4-11.0); MONOCYTES # (AUTO) 0.4 x10^3/uL (0.3-0.8); MONOCYTES % (AUTO) 10.1 % (0.0-13.0); NEUTROPHILS # (AUTO) 2.2 x10^3/uL (2.2-4.8); NEUTROPHILS % (AUTO) 54.6 % (42.0-75.0); PLATELET COUNT 258 X10^3/uL (150.0-450.0); RED CELL DISTRIBUTION WIDTH 17.9 % (11.6-16.5)
--- NOTE | 2023-02-05 05:24 | EKG ---
Test Reason : ACUTE CHF Blood Pressure : */* mmHG Vent. Rate : 72 BPM Atrial Rate : 72 BPM P-R Int : 136 ms QRS Dur : 118 ms QT Int : 444 ms P-R-T Axes : 41 -32 35 degrees QTc Int : 486 ms Sinus rhythm with occasional premature ventricular complexes Left axis deviation Left ventricular hypertrophy with QRS widening ( R in aVL , Edson product ) Nonspecific ST and T wave abnormality Prolonged QT ICRBBB Abnormal ECG When compared with ECG of 04-FEB-2023 05:10, premature ventricular complexes are now present Right bundle branch block is no longer present Confirmed by Castillo Espinosa ([id number]) on 02/06/2023 8:25:53 AM Referred By: Confirmed By: Castillo Espinosa
[2023-02-05 05:28] LABS: ALBUMIN 3.1 g/dL (3.4-5.0); CALCIUM 8.6 mg/dL (8.5-10.1); CARBON DIOXIDE 31.1 mmol/L (21-32); COR CA(FOR HYPOALB) 9.3 mg/dL (8.5-10.1); CREATININE 1.56 mg/dL (0.55-1.02); POTASSIUM 4.2 mmol/L (3.5-5.1)
--- NOTE | 2023-02-05 05:42 | RAD ---
PROCEDURE: Chest X-ray 1 View .HISTORY: Congestive heart failure.TECHNIQUE: AP view .COMPARISON: 02/04/2023.TECHNICAL QUALITY: Satisfactory .FINDINGS:Unchanged cardiomegaly with previous sternotomy.Mediastinum and hilar regions show no masses or lymphadenopathy .Normal central vascularity .No pulmonary consolidation, masses, pleural fluid, or pneumothorax .No acute bony abnormality .IMPRESSION:1. Unchanged cardiomegaly.2. No other evidence of active disease.Electronically signed by: Agustin Augustin (February 05, 2023 05:39:56)
[2023-02-05] MEDS ORDERED: ZESTRIL TAB 20 MG ONE (07:50)
[2023-02-05] MEDS: LOVAZA PO SCH (08:21)
[2023-02-05] MEDS: ASPIRIN EC 81 MG PO SCH (08:21)
[2023-02-05] MEDS: MICRO K EXTEN CAP 10 MEQ PO SCH (08:21)
[2023-02-05] MEDS: CARAFATE PO SCH ×4 (08:21→20:59)
[2023-02-05] MEDS: LOPRESSOR TAB 25 MG PO SCH (08:21)
[2023-02-05] MEDS: VITAMIN D3 25 mcg (1,000 UNITS) PO SCH (08:22)
[2023-02-05] MEDS: PEPCID TAB 20 MG PO SCH ×2 (08:22→21:00)
[2023-02-05] MEDS: ZINC SULFATE PO SCH (08:22)
[2023-02-05] MEDS: PriLOSEC PO SCH (08:22)
[2023-02-05] MEDS: XANAX PO PRN ×2 (08:22→16:08)
[2023-02-05] MEDS: NEURONTIN CAP 100 MG PO SCH ×2 (08:22→21:00)
[2023-02-05] MEDS: ZESTRIL TAB 20 MG PO SCH (08:23)
[2023-02-05] MEDS ORDERED: LASIX IVP SCH (09:00)
[2023-02-05] MEDS: HEMOCYTE-PLUS PO SCH (09:34)
[2023-02-05] MEDS: NovoLIN R (or HumuLIN R) SUBCUT PRN ×2 (12:57→20:57)
[2023-02-05] MEDS: NORCO 5/325 MG TAB PO PRN (12:58)
[2023-02-05] MEDS ORDERED: MORPHINE SULFATE INJ 2 MG INJ IVP PRN (13:13)
[2023-02-05] MEDS: FEMARA PO SCH (14:01)
[2023-02-05] MEDS ORDERED: SEROquel TAB 25 mg PO ONE (14:38)
--- NOTE | 2023-02-05 16:58 | EKG ---
Test Reason : Back pain Blood Pressure : */* mmHG Vent. Rate : 72 BPM Atrial Rate : 72 BPM P-R Int : 114 ms QRS Dur : 110 ms QT Int : 418 ms P-R-T Axes : -19 -29 -8 degrees QTc Int : 457 ms Normal sinus rhythm with sinus arrhythmia Incomplete right bundle branch block Minimal voltage criteria for LVH, may be normal variant ( R in aVL ) Nonspecific ST and T wave abnormality Abnormal ECG When compared with ECG of 05-FEB-2023 05:14, (Unconfirmed) premature ventricular complexes are no longer present Nonspecific T wave abnormality no longer evident in Lateral leads Confirmed by Castillo Espinosa ([id number]) on 02/06/2023 8:21:20 AM Referred By: Confirmed By: Castillo Espinosa
--- NOTE | 2023-02-05 18:14 | PCM.PROG ---
Progress Note - Progress Note for Day of Date of Exam: 02/05/23 - Subjective Subjective: PT IS 72 WF, ER ADMISSION WITH CHF EXACERBATION, DENYING ANY KNOWN HX OF CHF. PT HAS CAD WITH HX OF CABG SEVERAL YEARS AGO. PT HAD ABDNORMAL CT FINDING OF HER GALLBLADDER. PT HAS HAD CO FLANK PAIN AND MID BACK PAIN. PT IS ON PPI THERAPY, GB US ORDERED, CE AND EKG ORDERED THIS AM. XRAY OF T AND LSPINE ORDERED. PT IS ON PO NORCO BUT REPORTS IT IS NOT RELIEVING PAIN. PT FAMILY REPORTS PT GET VERY ANXIOUS AND AGITATED AT TIMES. PT IS VERY RESTLESS ON EXAM. PT WAS ANEMIC ON ADMISSION, FAMILY IS NOT SURE IF THIS IS A NEW FINDING AND PT IS VERY POOR HISTORIA. OCCULT STOOL ORDERED AND ANEMIA PANEL. PT STARTED ON PO IRON REPLACEMENT. WILL CONTINUE BP AND CARDIAC MONITORING - Past Medical Family Social History Past Med/Fam/Surg Hx: No changes since H&P Allergies: Allergies Jdyhwpw-DQZ-HaS Reductase Inhibitor Allergy (Verified 02/03/23 23:49) - Review of Systems ROS: No change since H&P - Vital Signs and I&O's Vital Signs: Temperature 97.7 F Temperature 98.7 F Pulse Rate [Left Radial] 86 Pulse Rate [Left Radial] 74 Respiratory Rate 20 Respiratory Rate 18 Respiratory Rate 18 Respiratory Rate 18 Respiratory Rate 18 Respiratory Rate 20 Blood Pressure [Left Arm] 123/88 Blood Pressure [Left Arm] 109/53 O2 Sat by Pulse Oximetry 90 O2 Sat by Pulse Oximetry 95 Intake and Output: Intake & Output 02/03/23 02/04/23 02/05/23 02/06/23 11:59 11:59 11:59 11:59 Intake Total 390 / 390 150 / 150 Output Total 1600 / 1600 Balance -1600 / -1600 390 / 390 150 / 150 - Physical Exam Oriented: Normal Eyes: Normal Ear: Normal Nose: Normal Throat: Normal Cardiovascular: Normal : Normal Auscultation: Bowel Sounds: Normal Tenderness: negative: Rebound, Guarding, Rigidity Skin: Decreased Turgur Musculoskeletal: Normal Psychiatric: Anxiety Mood Description: Anxious Affect: Anxious Speech Pattern: Clear, Appropriate - Laboratory and Diagnostics Result Diagrams: 02/05/23 04:38 02/05/23 04:38 Labs: Laboratory WBC 4.0 X10^3/uL (3.6-10.0) 02/05/23 04:38 RBC 2.90 X10^6/uL (3.5-5.4) L 02/05/23 04:38 Hgb 7.3 g/dL (12.0-16.0) L 02/05/23 04:38 Hct 22.6 % (36.0-47.0) L 02/05/23 04:38 MCV 78.1 fL (80.0-100.0) L 02/05/23 04:38 MCH 25.2 pg (27.0-34.0) L 02/05/23 04:38 MCHC 32.3 g/dL (33.0-35.0) L 02/05/23 04:38 RDW 17.9 % (11.6-16.5) H 02/05/23 04:38 Plt Count 258 X10^3/uL (150.0-450.0) 02/05/23 04:38 MPV 9.2 fL (7.4-11.0) 02/05/23 04:38 Neut % (Auto) 54.6 % (42.0-75.0) 02/05/23 04:38 Lymph % (Auto) 27.8 % (21.0-51.0) 02/05/23 04:38 [place] % (Auto) 10.1 % (0.0-13.0) 02/05/23 04:38 Eos % (Auto) 5.3 % (0.9-2.9) H 02/05/23 04:38 Baso % (Auto) 2.2 % (0.2-1.0) H 02/05/23 04:38 Neut # (Auto) 2.2 x10^3/uL (2.2-4.8) 02/05/23 04:38 Lymph # (Auto) 1.1 X10^3/uL (1.3-2.9) L 02/05/23 04:38 [place] # (Auto) 0.4 x10^3/uL (0.3-0.8) 02/05/23 04:38 Eos # (Auto) 0.2 x10^3/uL (0.0-0.2) 02/05/23 04:38 Baso # (Auto) 0.1 X10^3/uL (0.0-0.1) 02/05/23 04:38 Absolute Nucleated RBC 0.4 /100WBC 02/05/23 04:38 PT 16.5 SECONDS (11.8-14.3) 02/04/23 00:28 INR Target Range - 02/04/23 00:28 INR 1.35 (0.8-1.3) H 02/04/23 00:28 APTT 32.8 SECONDS (22.9-36.5) 02/04/23 00:28 PTT Comment - 02/04/23 00:28 Sodium 141 mmol/L (136-145) 02/05/23 04:38 Corrected Sodium 143 mmol/L (136-145) 02/05/23 04:38 Potassium 4.2 mmol/L (3.5-5.1) 02/05/23 04:38 Chloride 105 mmol/L (98-107) 02/05/23 04:38 Carbon Dioxide 31.1 mmol/L (21-32) 02/05/23 04:38 BUN 29 mg/dL (7-18) H 02/05/23 04:38 Creatinine 1.56 mg/dL (0.55-1.02) H 02/05/23 04:38 Est GFR (MDRD) Af Amer 42 (>60) L 02/05/23 04:38 Est GFR (MDRD) Non-Af 35 (>60) L 02/05/23 04:38 Glucose 173 mg/dL (65-99) H 02/05/23 04:38 POC Glucose (mg/dL) 98 mg/dL (65-99) 02/05/23 16:22 Calcium 8.6 mg/dL (8.5-10.1) 02/05/23 04:38 Corrected Calcium 9.3 mg/dL (8.5-10.1) 02/05/23 04:38 Iron 29 ug/dL (50-175) L 02/04/23 13:10 Transferrin 369 mg/dL (202-364) H 02/04/23 13:10 Ferritin 36 ng/mL (8-252) 02/04/23 13:10 Total Bilirubin 0.60 mg/dL (0.2-1.0) 02/05/23 04:38 AST 15 Units/L (15-37) 02/05/23 04:38 ALT 23 Units/L (12-78) 02/05/23 04:38 Alkaline Phosphatase 29 Units/L (46-116) L 02/05/23 04:38 Creatine Kinase 77 Units/L (26-192) 02/05/23 15:02 Troponin I High Sens 82.9 ng/L (4.0-60.0) H* 02/05/23 15:02 B-Natriuretic Peptide 1820 pg/mL (0-79) H* 02/04/23 00:28 Total Protein 6.0 g/dL (6.4-8.2) L 02/05/23 04:38 Albumin 3.1 g/dL (3.4-5.0) L 02/05/23 04:38 Globulin 2.9 g/dL (2.5-4.5) 02/05/23 04:38 Albumin/Globulin Ratio 1.1 Ratio (1.1-2.1) 02/05/23 04:38 Triglycerides 190 mg/dL (0-150) H 02/05/23 04:38 Cholesterol 165 mg/dL (0-200) 02/05/23 04:38 LDL Cholesterol, Calc 112 mg/dL (0-100) H 02/05/23 04:38 HDL Cholesterol 15 mg/dL (40-60) L 02/05/23 04:38 Cholesterol/HDL Ratio 11.0 (0.0-5.0) H 02/05/23 04:38 Amylase 26 Units/L (25-115) 02/04/23 06:30 Lipase 160 Units/L (73-393) 02/04/23 06:30 Vitamin B12 906 pg/mL (193-986) 02/04/23 13:10 Folate 7.9 ng/mL (>8.6) L 02/04/23 13:10 Specimen Type Clean catch urine 02/04/23 02:41 Urine Color Pale yellow (YELLOW) 02/04/23 02:41 Urine Appearance Clear (CLEAR) 02/04/23 02:41 Urine pH 5.0 (5.0 - 8.0) 02/04/23 02:41 Ur Specific [place] 1.015 (1.000-1.030) 02/04/23 02:41 Urine Protein 2+ (NEGATIVE) 02/04/23 02:41 Urine Glucose (UA) Negative (NEGATIVE) 02/04/23 02:41 Urine Ketones 1+ (NEGATIVE) 02/04/23 02:41 Urine Blood Negative (NEGATIVE) 02/04/23 02:41 Urine Nitrite Negative (NEGATIVE) 02/04/23 02:41 Urine Bilirubin Negative (NEGATIVE) 02/04/23 02:41 Urine Urobilinogen Normal (NORMAL) 02/04/23 02:41 Ur Leukocyte Esterase Negative (NEGATIVE) 02/04/23 02:41 Urine RBC None seen /HPF (0-3) 02/04/23 02:41 Urine WBC None seen /HPF (0-5) 02/04/23 02:41 Ur Squamous Epith Cells Rare /HPF (NEGATIVE) 02/04/23 02:41 Urine Bacteria Negative /HPF (NEGATIVE) 02/04/23 02:41 Ur Culture Indicated? No/not indicated 02/04/23 02:41 SARS-CoV-2 (PCR) Negative (NEGATIVE) 02/03/23 23:42 Influenza Type A (PCR) Negative (NEGATIVE) 02/03/23 23:42 Influenza Type B (PCR) Negative (NEGATIVE) 02/03/23 23:42 RSV (PCR) Negative (NEGATIVE) 02/03/23 23:42 - Plan (1) Acute CHF (congestive heart failure) Status: Acute Plan: ADMIT, IV LASIX THERAPY, STRICT I&OS. CARDIAC ENZYMES, EKG. OCCULT STO OL, ANEMIA PANEL. REPEAT AM CXR, REPEAT AM BNP. CARDIAC MONITORING. AMYLASE AND LIPASE. FLP. ECHO, GB US (2) CAD (coronary artery disease) Status: Acute (3) Uncontrolled hypertension Status: Acute (4) Acute gastroenteritis Status: Acute (5) Diabetes mellitus type 2, uncontrolled Status: Acute Qualifiers: Glycemic state: with hyperglycemia Qualified Code(s): E11.65 - Type 2 diabetes mellitus with hyperglycemia
[2023-02-05 18:57] LABS: BASOPHILS # (AUTO) 0.1 X10^3/uL (0.0-0.1); BASOPHILS % (AUTO) 1.4 % (0.2-1.0); EOSINOPHILS # (AUTO) 0.3 x10^3/uL (0.0-0.2); EOSINOPHILS % (AUTO) 4.7 % (0.9-2.9); HEMATOCRIT 23.8 % (36.0-47.0); HEMOGLOBIN 7.5 g/dL (12.0-16.0); LYMPHOCYTES % (AUTO) 19.6 % (21.0-51.0); MEAN CORPUSCULAR HEMOGLOBIN 24.7 pg (27.0-34.0); MEAN CORPUSCULAR HGB CONC 31.4 g/dL (33.0-35.0); MEAN CORPUSCULAR VOLUME 78.5 fL (80.0-100.0); MEAN PLATELET VOLUME 8.8 fL (7.4-11.0); MONOCYTES # (AUTO) 0.4 x10^3/uL (0.3-0.8); MONOCYTES % (AUTO) 8.2 % (0.0-13.0); NEUTROPHILS # (AUTO) 3.5 x10^3/uL (2.2-4.8); NEUTROPHILS % (AUTO) 66.1 % (42.0-75.0); PLATELET COUNT 252 X10^3/uL (150.0-450.0); RED BLOOD COUNT 3.03 X10^6/uL (3.5-5.4); RED CELL DISTRIBUTION WIDTH 17.4 % (11.6-16.5); WHITE BLOOD COUNT 5.3 X10^3/uL (3.6-10.0)
--- NOTE | 2023-02-05 20:24 | RAD ---
HISTORYNECK, BACK PAINSTUDYTHORACIC SPINECOMPARISONNone availableTECHNIQUERadiographs of the thoracic spine, 2 views, AP and lateral projectionsFINDINGSVertebral body heights are maintained with normal alignment.Mild multilevel degenerative disc changes.No acute osseous abnormality.Soft tissues are unremarkable.Imaged portion of the chest is clear.Status post median sternotomy/CABG. Mild cardiomegaly.IMPRESSIONNo acute abnormality. Mild multilevel degenerative disc changes.Electronically signed by: Anibal Benitez (February 05, 2023 20:23:15)
--- NOTE | 2023-02-05 20:25 | RAD ---
HISTORYNECK, BACK PAINSTUDYCERVICAL SPINE, AP/LATCOMPARISONNone availableTECHNIQUECervical spine radiographs, 3 views, AP, lateral and odontoid projections.FINDINGSVertebral body heights maintained with normal alignment.Mild degenerative disc changes.Posterior elements are intact.Prevertebral soft tissues are normal.Atlantoaxial articulation is intact.Odontoid appears intact and is symmetrically located between the lateral masses; tip obscured by the teeth/hardpalate.Lung apices are clear.Cardiac silhouette is enlarged.Status post median sternotomy/CABG.IMPRESSION1. No acute loss abnormality identified.2. Mild multilevel degenerative disc disease.Electronically signed by: Anibal Benitez (February 05, 2023 20:24:13)
[2023-02-05] MEDS: RESTORIL CAP 15 MG PO SCH ×2 (21:00→23:29)
[2023-02-05] MEDS: COLACE CAP 100 MG PO PRN (21:00)
[2023-02-05] MEDS: TRICOR TAB 145 MG PO SCH (21:00)
[2023-02-06] MEDS: RESTORIL CAP 15 MG PO SCH ×2 (00:27→22:12)
[2023-02-06 05:19] LABS: BASOPHILS # (AUTO) 0.1 X10^3/uL (0.0-0.1); BASOPHILS % (AUTO) 2.3 % (0.2-1.0); EOSINOPHILS # (AUTO) 0.3 x10^3/uL (0.0-0.2); EOSINOPHILS % (AUTO) 6.7 % (0.9-2.9); HEMATOCRIT 20.8 % (36.0-47.0); LYMPHOCYTES # (AUTO) 1.1 X10^3/uL (1.3-2.9); LYMPHOCYTES % (AUTO) 25.4 % (21.0-51.0); MEAN CORPUSCULAR HEMOGLOBIN 24.6 pg (27.0-34.0); MEAN CORPUSCULAR HGB CONC 31.5 g/dL (33.0-35.0); MEAN CORPUSCULAR VOLUME 78.2 fL (80.0-100.0); MEAN PLATELET VOLUME 9.4 fL (7.4-11.0); MONOCYTES # (AUTO) 0.5 x10^3/uL (0.3-0.8); MONOCYTES % (AUTO) 10.5 % (0.0-13.0); NEUTROPHILS # (AUTO) 2.4 x10^3/uL (2.2-4.8); NEUTROPHILS % (AUTO) 55.1 % (42.0-75.0); PLATELET COUNT 221 X10^3/uL (150.0-450.0); RED BLOOD COUNT 2.66 X10^6/uL (3.5-5.4); RED CELL DISTRIBUTION WIDTH 17.8 % (11.6-16.5); WHITE BLOOD COUNT 4.3 X10^3/uL (3.6-10.0)
[2023-02-06 05:29] LABS: ALBUMIN 2.6 g/dL (3.4-5.0); CALCIUM 8.3 mg/dL (8.5-10.1); CARBON DIOXIDE 32.3 mmol/L (21-32); COR CA(FOR HYPOALB) 9.4 mg/dL (8.5-10.1); CREATININE 1.48 mg/dL (0.55-1.02); POTASSIUM 4.4 mmol/L (3.5-5.1); TOTAL PROTEIN 5.4 g/dL (6.4-8.2)
[2023-02-06 05:34] LABS: HEMOGLOBIN 6.5 g/dL (12.0-16.0)
[2023-02-06] MEDS: NovoLIN R (or HumuLIN R) SUBCUT PRN ×2 (05:51→21:35)
[2023-02-06] MEDS ORDERED: ZESTRIL TAB 20 MG ONE (07:45)
[2023-02-06] MEDS ORDERED: NS 500 ML IV 500 ML IV ONE (08:43)
[2023-02-06] MEDS: ASPIRIN EC 81 MG PO SCH (08:52)
[2023-02-06] MEDS: CARAFATE PO SCH ×4 (08:52→21:27)
[2023-02-06] MEDS: FEMARA PO SCH (08:52)
[2023-02-06] MEDS: HEMOCYTE-PLUS PO SCH (08:52)
[2023-02-06] MEDS: LOVAZA PO SCH (08:53)
[2023-02-06] MEDS: LOPRESSOR TAB 25 MG PO SCH (08:53)
[2023-02-06] MEDS: PEPCID TAB 20 MG PO SCH ×2 (08:53→21:25)
[2023-02-06] MEDS: NEURONTIN CAP 100 MG PO SCH ×2 (08:53→21:26)
[2023-02-06] MEDS: PriLOSEC PO SCH (08:53)
[2023-02-06] MEDS: MICRO K EXTEN CAP 10 MEQ PO SCH (08:53)
[2023-02-06] MEDS: VITAMIN D3 25 mcg (1,000 UNITS) PO SCH (08:53)
[2023-02-06] MEDS: ZESTRIL TAB 20 MG PO SCH (08:54)
[2023-02-06] MEDS: ZINC SULFATE PO SCH (08:54)
[2023-02-06] MEDS: NORCO 5/325 MG TAB PO PRN ×2 (08:57→22:13)
[2023-02-06] MEDS: XANAX PO PRN (08:58)
--- NOTE | 2023-02-06 09:42 | RAD ---
HISTORYCHFSTUDYAP chestCOMPARISONMay 2022FINDINGSMild stable cardiomegaly with sternal wires, clear lungs and pleural spaces.IMPRESSIONCardiac prominence; no acute findings.Electronically signed by: CONCEPCION FOSTER (February 06, 2023 09:41:13)
[2023-02-06] MEDS ORDERED: NS 250 ML IV 250 ML IV ONE ×2 (11:43→18:00)
--- NOTE | 2023-02-06 14:05 | US ---
GALL BLADDERHISTORY: ACUTE CHFComparison: NoneTechnique: Multiple thakkar scale and color flow Doppler images of the abdomen were obtained.Findings:Overall study is limited by overlying bowel gas. The liver is normal in echotexture and size. No focal mass. No intrahepatic bile duct dilatation. Gallstones present.No pericholecystic fluid or gallbladder wall thickening. The technologist did not report a positive sonographic Villegas's sign. The common bile duct measures 2 mm.The right kidney measures 10.7 cm. No focal mass, hydronephrosis, or stones identified.IMPRESSION:1.Cholelithiasis without cholecystitis.Electronically signed by: CYNDI GILLETTE (February 06, 2023 14:05:00)
[2023-02-06] MEDS: PROTONIX INJ 40 MG VIAL IVP SCH ×2 (16:35→21:26)
[2023-02-06] MEDS: COLACE CAP 100 MG PO PRN ×2 (16:35→21:26)
[2023-02-06] MEDS ORDERED: MORPHINE SULFATE INJ 2 MG INJ IVP PRN (18:15)
[2023-02-06] MEDS ORDERED: MILK OF MAGNESIA PO PRN (19:46)
[2023-02-06] MEDS ORDERED: MILK OF MAGNESIA ONE (19:48)
[2023-02-06] MEDS: TRICOR TAB 145 MG PO SCH (21:25)
[2023-02-06 22:34] LABS: HEMOGLOBIN 10.8 g/dL (12.0-16.0)
[2023-02-07 05:47] LABS: BASOPHILS # (AUTO) 0.1 X10^3/uL (0.0-0.1); BASOPHILS % (AUTO) 1.6 % (0.2-1.0); EOSINOPHILS # (AUTO) 0.2 x10^3/uL (0.0-0.2); EOSINOPHILS % (AUTO) 4.8 % (0.9-2.9); HEMOGLOBIN 9.2 g/dL (12.0-16.0); LYMPHOCYTES # (AUTO) 1.1 X10^3/uL (1.3-2.9); LYMPHOCYTES % (AUTO) 22.2 % (21.0-51.0); MEAN CORPUSCULAR HEMOGLOBIN 25.9 pg (27.0-34.0); MEAN CORPUSCULAR HGB CONC 32.8 g/dL (33.0-35.0); MEAN CORPUSCULAR VOLUME 78.9 fL (80.0-100.0); MEAN PLATELET VOLUME 9.1 fL (7.4-11.0); MONOCYTES # (AUTO) 0.6 x10^3/uL (0.3-0.8); MONOCYTES % (AUTO) 12.4 % (0.0-13.0); NEUTROPHILS # (AUTO) 2.9 x10^3/uL (2.2-4.8); PLATELET COUNT 233 X10^3/uL (150.0-450.0); RED BLOOD COUNT 3.56 X10^6/uL (3.5-5.4); RED CELL DISTRIBUTION WIDTH 17.3 % (11.6-16.5)
[2023-02-07 06:08] LABS: ALANINE AMINOTRANSFERASE 19 Units/L (12-78); ALBUMIN 2.9 g/dL (3.4-5.0); ALKALINE PHOSPHATASE 24 Units/L (46-116); ASPARTATE AMINO TRANSFERASE 21 Units/L (15-37); BLOOD UREA NITROGEN 28 mg/dL (7-18); CALCIUM 8.5 mg/dL (8.5-10.1); CARBON DIOXIDE 34.1 mmol/L (21-32); CHLORIDE 106 mmol/L (98-107); COR CA(FOR HYPOALB) 9.4 mg/dL (8.5-10.1); COR NA(FOR HYPERGLY) 146 mmol/L (136-145); CREATININE 1.14 mg/dL (0.55-1.02); GLUCOSE 114 mg/dL (65-99); POTASSIUM 3.8 mmol/L (3.5-5.1); SODIUM 146 mmol/L (136-145); TOTAL PROTEIN 5.7 g/dL (6.4-8.2); eGFR NON BLACK RACES 50 (>60)
[2023-02-07] MEDS: HEMOCYTE-PLUS PO SCH (09:15)
[2023-02-07] MEDS: MICRO K EXTEN CAP 10 MEQ PO SCH (09:15)
[2023-02-07] MEDS: LOPRESSOR TAB 25 MG PO SCH (09:15)
[2023-02-07] MEDS: LOVAZA PO SCH (09:15)
[2023-02-07] MEDS: PEPCID TAB 20 MG PO SCH ×2 (09:15→21:26)
[2023-02-07] MEDS: ASPIRIN EC 81 MG PO SCH (09:15)
[2023-02-07] MEDS: CARAFATE PO SCH ×4 (09:15→21:26)
[2023-02-07] MEDS: FEMARA PO SCH (09:15)
[2023-02-07] MEDS: NEURONTIN CAP 100 MG PO SCH ×2 (09:15→21:26)
[2023-02-07] MEDS: ZINC SULFATE PO SCH (09:16)
[2023-02-07] MEDS: PROTONIX INJ 40 MG VIAL IVP SCH ×2 (09:16→21:24)
[2023-02-07] MEDS: PriLOSEC PO SCH (09:16)
[2023-02-07] MEDS: VITAMIN D3 25 mcg (1,000 UNITS) PO SCH (09:16)
[2023-02-07] MEDS: ZESTRIL TAB 20 MG PO SCH (09:16)
[2023-02-07] MEDS ORDERED: DIPRIVAN VIAL 20 ML ONE (10:52)
[2023-02-07] MEDS ORDERED: NS 1,000 ML IV 1,000 ML ONE (11:00)
[2023-02-07] MEDS ORDERED: XYLOCAINE 2 % (PLAIN) ONE (11:03)
[2023-02-07] MEDS ORDERED: STERILE WATER IRRIGATION IR ONE (14:25)
[2023-02-07] MEDS: NovoLIN R (or HumuLIN R) SUBCUT PRN (16:14)
[2023-02-07] MEDS: RESTORIL CAP 15 MG PO SCH (21:24)
[2023-02-07] MEDS: TRICOR TAB 145 MG PO SCH (21:27)
[2023-02-08] MEDS: NORCO 5/325 MG TAB PO PRN ×2 (01:43→17:06)
[2023-02-08] MEDS: NovoLIN R (or HumuLIN R) SUBCUT PRN ×2 (05:36→17:06)
[2023-02-08 06:13] LABS: BASOPHILS # (AUTO) 0.1 X10^3/uL (0.0-0.1); BASOPHILS % (AUTO) 1.1 % (0.2-1.0); EOSINOPHILS # (AUTO) 0.4 x10^3/uL (0.0-0.2); EOSINOPHILS % (AUTO) 6.9 % (0.9-2.9); HEMATOCRIT 28.7 % (36.0-47.0); HEMOGLOBIN 9.4 g/dL (12.0-16.0); LYMPHOCYTES # (AUTO) 1.2 X10^3/uL (1.3-2.9); LYMPHOCYTES % (AUTO) 22.3 % (21.0-51.0); MEAN CORPUSCULAR HEMOGLOBIN 26.1 pg (27.0-34.0); MEAN CORPUSCULAR HGB CONC 32.6 g/dL (33.0-35.0); MEAN CORPUSCULAR VOLUME 80.1 fL (80.0-100.0); MONOCYTES # (AUTO) 0.5 x10^3/uL (0.3-0.8); MONOCYTES % (AUTO) 9.8 % (0.0-13.0); NEUTROPHILS # (AUTO) 3.3 x10^3/uL (2.2-4.8); NEUTROPHILS % (AUTO) 59.9 % (42.0-75.0); PLATELET COUNT 223 X10^3/uL (150.0-450.0); RED BLOOD COUNT 3.59 X10^6/uL (3.5-5.4); RED CELL DISTRIBUTION WIDTH 17.3 % (11.6-16.5); WHITE BLOOD COUNT 5.5 X10^3/uL (3.6-10.0)
[2023-02-08 06:14] LABS: ALANINE AMINOTRANSFERASE 19 Units/L (12-78); ALBUMIN 2.9 g/dL (3.4-5.0); ALKALINE PHOSPHATASE 25 Units/L (46-116); ASPARTATE AMINO TRANSFERASE 22 Units/L (15-37); BLOOD UREA NITROGEN 21 mg/dL (7-18); CALCIUM 8.5 mg/dL (8.5-10.1); CARBON DIOXIDE 32.6 mmol/L (21-32); CHLORIDE 105 mmol/L (98-107); COR CA(FOR HYPOALB) 9.4 mg/dL (8.5-10.1); COR NA(FOR HYPERGLY) 143 mmol/L (136-145); CREATININE 1.02 mg/dL (0.55-1.02); GLUCOSE 152 mg/dL (65-99); POTASSIUM 3.9 mmol/L (3.5-5.1); SODIUM 142 mmol/L (136-145); TOTAL PROTEIN 5.9 g/dL (6.4-8.2); eGFR NON BLACK RACES 56 (>60)
[2023-02-08] MEDS ORDERED: ZESTRIL TAB 20 MG ONE (08:09)
[2023-02-08] MEDS: VITAMIN D3 25 mcg (1,000 UNITS) PO SCH (08:28)
[2023-02-08] MEDS: PriLOSEC PO SCH (08:28)
[2023-02-08] MEDS: LOPRESSOR TAB 25 MG PO SCH (08:29)
[2023-02-08] MEDS: ASPIRIN EC 81 MG PO SCH (08:29)
[2023-02-08] MEDS: PEPCID TAB 20 MG PO SCH ×2 (08:29→21:10)
[2023-02-08] MEDS: MICRO K EXTEN CAP 10 MEQ PO SCH (08:29)
[2023-02-08] MEDS: NEURONTIN CAP 100 MG PO SCH ×2 (08:29→21:09)
[2023-02-08] MEDS: ZINC SULFATE PO SCH (08:29)
[2023-02-08] MEDS: LOVAZA PO SCH (08:29)
[2023-02-08] MEDS: HEMOCYTE-PLUS PO SCH (08:30)
[2023-02-08] MEDS: CARAFATE PO SCH ×4 (08:30→21:09)
[2023-02-08] MEDS: ZESTRIL TAB 20 MG PO SCH (08:30)
[2023-02-08] MEDS: FEMARA PO SCH (08:31)
[2023-02-08] MEDS: PROTONIX INJ 40 MG VIAL IVP SCH ×2 (08:32→21:10)
[2023-02-08] MEDS ORDERED: ZOFRAN INJ 4 MG VIAL IVP PRN (09:24)
[2023-02-08] MEDS ORDERED: ZOFRAN INJ 4 MG VIAL ONE (09:24)
[2023-02-08] MEDS: XANAX PO PRN (09:34)
--- NOTE | 2023-02-08 10:26 | RAD ---
HISTORYchf, sobSTUDYCHEST, 1 VIEWCOMPARISONMay 2018TECHNIQUEPortable chest radiographFINDINGSThere is evidence of mild cardiomegaly with central vascular congestion and cephalization of flow. There is mild interstitial septal thickening. Costophrenic sulci are marginally blunted. No organized consolidation is identified. There is no evidence of free air or pneumothorax. No acute osseous abnormalities of the chest.IMPRESSIONCardiomegaly, central vascular congestion and mild interstitial edema. Additionally, small dependent pleural effusions are not excluded.Electronically signed by: RAQUEL CONNER (February 08, 2023 10:25:57)
[2023-02-08] MEDS: GOLYTELY or GAVILYTE or Equivalent PO SCH (13:19)
[2023-02-08] MEDS: TRICOR TAB 145 MG PO SCH (21:09)
[2023-02-08] MEDS: RESTORIL CAP 15 MG PO SCH (21:09)
[2023-02-08] MEDS: LASIX IVP SCH (21:10)
[2023-02-09] MEDS ORDERED: BUTT CREAM (COMPOUND) TOP PRN (02:50)
[2023-02-09 06:04] LABS: BASOPHILS # (AUTO) 0.1 X10^3/uL (0.0-0.1); BASOPHILS % (AUTO) 2.4 % (0.2-1.0); EOSINOPHILS # (AUTO) 0.4 x10^3/uL (0.0-0.2); EOSINOPHILS % (AUTO) 10.3 % (0.9-2.9); HEMATOCRIT 31.5 % (36.0-47.0); HEMOGLOBIN 10.2 g/dL (12.0-16.0); LYMPHOCYTES # (AUTO) 1.4 X10^3/uL (1.3-2.9); LYMPHOCYTES % (AUTO) 32.8 % (21.0-51.0); MEAN CORPUSCULAR HEMOGLOBIN 25.9 pg (27.0-34.0); MEAN CORPUSCULAR HGB CONC 32.4 g/dL (33.0-35.0); MEAN CORPUSCULAR VOLUME 79.9 fL (80.0-100.0); MEAN PLATELET VOLUME 9.1 fL (7.4-11.0); MONOCYTES # (AUTO) 0.5 x10^3/uL (0.3-0.8); MONOCYTES % (AUTO) 12.1 % (0.0-13.0); NEUTROPHILS # (AUTO) 1.8 x10^3/uL (2.2-4.8); NEUTROPHILS % (AUTO) 42.4 % (42.0-75.0); PLATELET COUNT 239 X10^3/uL (150.0-450.0); RED BLOOD COUNT 3.95 X10^6/uL (3.5-5.4); WHITE BLOOD COUNT 4.3 X10^3/uL (3.6-10.0)
[2023-02-09 06:16] LABS: ALANINE AMINOTRANSFERASE 23 Units/L (12-78); ALBUMIN 3.2 g/dL (3.4-5.0); ALKALINE PHOSPHATASE 30 Units/L (46-116); ASPARTATE AMINO TRANSFERASE 25 Units/L (15-37); BLOOD UREA NITROGEN 13 mg/dL (7-18); CALCIUM 8.8 mg/dL (8.5-10.1); CARBON DIOXIDE 32.5 mmol/L (21-32); CHLORIDE 102 mmol/L (98-107); COR CA(FOR HYPOALB) 9.4 mg/dL (8.5-10.1); COR NA(FOR HYPERGLY) 143 mmol/L (136-145); CREATININE 1.06 mg/dL (0.55-1.02); GLUCOSE 185 mg/dL (65-99); POTASSIUM 3.7 mmol/L (3.5-5.1); SODIUM 141 mmol/L (136-145); TOTAL PROTEIN 6.5 g/dL (6.4-8.2); eGFR NON BLACK RACES 54 (>60)
--- NOTE | 2023-02-09 06:22 | EKG ---
Test Reason : Chest Pain Blood Pressure : */* mmHG Vent. Rate : 71 BPM Atrial Rate : 71 BPM P-R Int : 128 ms QRS Dur : 120 ms QT Int : 448 ms P-R-T Axes : 29 -32 -37 degrees QTc Int : 486 ms Sinus rhythm with occasional premature ventricular complexes Left axis deviation Right bundle branch block Minimal voltage criteria for LVH, may be normal variant ( R in aVL ) Abnormal ECG When compared with ECG of 05-FEB-2023 16:35, premature ventricular complexes are now present Right bundle branch block has replaced Incomplete right bundle branch block Confirmed by Castillo Espinosa ([id number]) on 02/09/2023 7:44:03 AM Referred By: Confirmed By: Castillo Espinosa
[2023-02-09] MEDS: FEMARA PO SCH (08:03)
[2023-02-09] MEDS: CARAFATE PO SCH ×4 (08:03→20:37)
[2023-02-09] MEDS: ASPIRIN EC 81 MG PO SCH (08:03)
[2023-02-09] MEDS: LASIX IVP SCH (08:03)
[2023-02-09] MEDS: LOPRESSOR TAB 25 MG PO SCH ×2 (08:03→20:36)
[2023-02-09] MEDS: HEMOCYTE-PLUS PO SCH (08:03)
[2023-02-09] MEDS: MICRO K EXTEN CAP 10 MEQ PO SCH (08:04)
[2023-02-09] MEDS: NEURONTIN CAP 100 MG PO SCH ×2 (08:04→20:37)
[2023-02-09] MEDS: PEPCID TAB 20 MG PO SCH (08:04)
[2023-02-09] MEDS: ZINC SULFATE PO SCH (08:04)
[2023-02-09] MEDS: LOVAZA PO SCH (08:04)
[2023-02-09] MEDS: ZESTRIL TAB 20 MG PO SCH (08:04)
[2023-02-09] MEDS: VITAMIN D3 25 mcg (1,000 UNITS) PO SCH (08:04)
[2023-02-09] MEDS: PROTONIX INJ 40 MG VIAL IVP SCH ×2 (08:18→20:38)
--- NOTE | 2023-02-09 08:58 | RAD ---
HISTORYACUTE CHFSTUDYCHEST, 1 [id number]/25/2023.TECHNIQUEPA or AP view of the chestFINDINGSStatus post median sternotomy and CABG. Cardiac silhouette is mildly enlarged. Mediastinal contours appear normal. Improved appearance of bilateral airspace opacities. Mild interstitial opacities remain. No definite pleural effusion or pneumothorax. Patient's chin obscures portions of the lung apices.IMPRESSIONImproved appearance of pulmonary edema.Electronically signed by: Ender White (February 09, 2023 08:57:16)
[2023-02-09] MEDS ORDERED: NS 1,000 ML IV 1,000 ML ONE (10:56)
[2023-02-09] MEDS ORDERED: DIPRIVAN VIAL 20 ML ONE (11:16)
[2023-02-09] MEDS: GOLYTELY or GAVILYTE or Equivalent PO SCH (14:19)
[2023-02-09] MEDS: XANAX PO PRN (16:45)
[2023-02-09] MEDS: NovoLIN R (or HumuLIN R) SUBCUT PRN ×2 (16:48→22:15)
[2023-02-09] MEDS: TRICOR TAB 145 MG PO SCH (20:36)
[2023-02-09] MEDS: RESTORIL CAP 15 MG PO SCH (20:36)
[2023-02-10 04:35] VITALS: PULSE 72
[2023-02-10 05:29] LABS: BASOPHILS # (AUTO) 0.1 X10^3/uL (0.0-0.1); BASOPHILS % (AUTO) 2.9 % (0.2-1.0); EOSINOPHILS # (AUTO) 0.5 x10^3/uL (0.0-0.2); HEMATOCRIT 29.6 % (36.0-47.0); HEMOGLOBIN 9.9 g/dL (12.0-16.0); LYMPHOCYTES # (AUTO) 1.1 X10^3/uL (1.3-2.9); LYMPHOCYTES % (AUTO) 25.7 % (21.0-51.0); MEAN CORPUSCULAR HEMOGLOBIN 26.4 pg (27.0-34.0); MEAN CORPUSCULAR HGB CONC 33.3 g/dL (33.0-35.0); MEAN CORPUSCULAR VOLUME 79.4 fL (80.0-100.0); MEAN PLATELET VOLUME 9.1 fL (7.4-11.0); MONOCYTES # (AUTO) 0.5 x10^3/uL (0.3-0.8); MONOCYTES % (AUTO) 11.3 % (0.0-13.0); NEUTROPHILS # (AUTO) 2.1 x10^3/uL (2.2-4.8); NEUTROPHILS % (AUTO) 49.1 % (42.0-75.0); PLATELET COUNT 229 X10^3/uL (150.0-450.0); RED BLOOD COUNT 3.73 X10^6/uL (3.5-5.4); RED CELL DISTRIBUTION WIDTH 18.1 % (11.6-16.5); WHITE BLOOD COUNT 4.2 X10^3/uL (3.6-10.0)
[2023-02-10 05:46] LABS: ALANINE AMINOTRANSFERASE 21 Units/L (12-78); ALKALINE PHOSPHATASE 28 Units/L (46-116); ASPARTATE AMINO TRANSFERASE 23 Units/L (15-37); BLOOD UREA NITROGEN 18 mg/dL (7-18); CALCIUM 8.9 mg/dL (8.5-10.1); CARBON DIOXIDE 32.8 mmol/L (21-32); CHLORIDE 106 mmol/L (98-107); COR CA(FOR HYPOALB) 9.7 mg/dL (8.5-10.1); COR NA(FOR HYPERGLY) 144 mmol/L (136-145); CREATININE 1.02 mg/dL (0.55-1.02); GLUCOSE 144 mg/dL (65-99); POTASSIUM 3.6 mmol/L (3.5-5.1); SODIUM 143 mmol/L (136-145); TOTAL PROTEIN 6.2 g/dL (6.4-8.2); eGFR NON BLACK RACES 56 (>60)
[2023-02-10] MEDS ORDERED: K-DUR TAB 20 MEQ PO PRN (07:14)
[2023-02-10] MEDS ORDERED: MAGNESIUM SULFATE 1 GRAM/100 mL PREMIX 1 G/100 ML BAG IV PRN (07:14)
[2023-02-10] MEDS ORDERED: ZESTRIL TAB 20 MG ONE (08:52)
[2023-02-10] MEDS: ASPIRIN EC 81 MG PO SCH (09:47)
[2023-02-10] MEDS: FEMARA PO SCH (09:47)
[2023-02-10] MEDS: CARAFATE PO SCH (09:47)
[2023-02-10] MEDS: HEMOCYTE-PLUS PO SCH (09:47)
[2023-02-10] MEDS: LASIX IVP SCH (09:49)
[2023-02-10] MEDS: LOPRESSOR TAB 25 MG PO SCH (09:49)
[2023-02-10] MEDS: LOVAZA PO SCH (09:50)
[2023-02-10] MEDS: MICRO K EXTEN CAP 10 MEQ PO SCH (09:54)
[2023-02-10] MEDS: PEPCID TAB 20 MG PO SCH (09:54)
[2023-02-10] MEDS: NEURONTIN CAP 100 MG PO SCH (09:54)
[2023-02-10] MEDS: PROTONIX INJ 40 MG VIAL IVP SCH (09:54)
[2023-02-10] MEDS: VITAMIN D3 25 mcg (1,000 UNITS) PO SCH (09:55)
[2023-02-10] MEDS: ZESTRIL TAB 20 MG PO SCH (09:55)
[2023-02-10] MEDS: ZINC SULFATE PO SCH (09:56)
[2023-02-10 11:15] VITALS: BP 143/65; TEMP 98.7; O2SAT 98
== END 2023-02-10 11:40 | disposition home or self-care (01) | DRG 292 ==
LOC: ER 23:31 → OBS 23:31 → MED/SURG 23:31 → OBS 02-04 06:58 → MED/SURG 02-04 06:59 → OBS 02-05 10:40 → MED/SURG 02-05 10:45
PROVIDERS: ADMIT Internal Medicine; ATTEND Internal Medicine
DX: K92.2 Gastrointestinal hemorrhage, unspecified; I50.9 Heart failure, unspecified; R07.89 Other chest pain; N28.9 Disorder of kidney and ureter, unspecified; R55 Syncope and collapse; Y92.230 Patient room in hospital as the place of occurrence of the external cause; Z20.822 Contact with and (suspected) exposure to COVID-19; K80.20 Calculus of gallbladder without cholecystitis without obstruction; N39.0 Urinary tract infection, site not specified; R26.2 Difficulty in walking, not elsewhere classified; K59.00 Constipation, unspecified; M54.2 Cervicalgia; M54.6 Pain in thoracic spine; R10.9 Unspecified abdominal pain; D64.89 Other specified anemias; Z95.1 Presence of aortocoronary bypass graft; R06.02 Shortness of breath; R44.3 Hallucinations, unspecified; M25.59 Pain in other specified joint; I25.10 Atherosclerotic heart disease of native coronary artery without angina pectoris; F41.9 Anxiety disorder, unspecified; K21.9 Gastro-esophageal reflux disease without esophagitis; W06.XXXA Fall from bed, initial encounter

== ENCOUNTER 2025-04-22 10:39 | Inpatient (IN) ==
--- NOTE | 2025-04-22 11:07 | EKG ---
Test Reason : dyspnea Blood Pressure : */* mmHG Vent. Rate : 92 BPM Atrial Rate : 92 BPM P-R Int : 140 ms QRS Dur : 136 ms QT Int : 374 ms P-R-T Axes : 57 -52 75 degrees QTc Int : 462 ms Normal sinus rhythm Right bundle branch block Left anterior fascicular block Bifascicular block Minimal voltage criteria for LVH, may be normal variant ( R in aVL ) Possible Lateral infarct (cited on or before 05-JAN-2025) Abnormal ECG When compared with ECG of 13-JAN-2025 16:21, Questionable change in initial forces of Lateral leads Inverted T waves have replaced nonspecific T wave abnormality in Lateral leads Confirmed by Jose Angel Kaplan MD ([id number]) on 04/22/2025 1:23:09 PM Referred By: Confirmed By: Jose Angel Kaplan MD
[2025-04-22 11:16] LABS: MEAN PLATELET VOLUME 9.5 fL (7.4-11.0); RED CELL DISTRIBUTION WIDTH 16.3 % (11.6-16.5)
--- NOTE | 2025-04-22 11:17 | DR.GENAD ---
HPI Time Seen Time Seen by Provider: 04/22/25 10:57 PCP Primary Care Physician: FARZAD Bradley Complaint/Symptoms Chief Complaint Doctors Comments: 74 yo F, hx of CHF, c/o increasing edema periopherally, accomp by dyspnea with exertion. Denies other complaints. Denies CP. Denies fever. Denies leg pain. Chief Complaint:: Pt c/o one week of progressively worsening swelling of bilateral lower extremities, redness to bilateral feet with constant buring pain and exertional shortness of breath. Pt also c/o chronic lower back pain that is severe. Denies any recent injury or fall. COVID-19 Coronavirus risk:travel/contact w/high risk person: No Has patient experienced Coronavirus symptoms: No Source History Provided: Patient and EMS Mode of Arrival Mode of Arrival: EMS Timing Onset of Chief Complaint: 04/17/25 PMH PMH Past Medical History: Yes Past Medical History: Anxiety, Arthritis, CHF, Coronary Artery Disease, Depression, Diabetes, Hypertension, Liver Disease, [place] and Renal Disease Past Medical History Comment: Breast Cancer, Liver Cirrhosis Past Surgical History: Yes Surgical History: CABG/Valve Surgery and Tonsillectomy Past Surgical History Comment: Left Mastectomy Family History History of Family Medical Conditions: Yes Family Medical History: Diabetes Mellitus, Cancer, [place], Coronary Artery Disease, Heart Failure and Hypertension Social History Does patient currently use any type of tobacco product: No Have you used tobacco products in the last 12 months: No Type of Tobacco Use: None Does any household member use tobacco: No Alcohol Use: None Do you use any recreational Drugs:: No Lives With: Family Lives Where: Home Travel Risk Coronavirus risk:travel/contact w/high risk person: No Has patient experienced Coronavirus symptoms: No Infectious screening In the last 2 months have you had wt loss of >10#?: NO Have you had fever, night sweats or hemotysis?: No Have you traveled outside the country in the last 6 months?: No Isolation: Standard ROS Review of Systems Respiratoy: Short of Breath All Other Systems: Reviewed and Negative PE Vital Signs Vitals: Vital Signs Temperature 97.7 F Pulse Rate 74 Pulse Rate 74 Pulse Rate 74 Pulse Rate 74 Pulse Rate 75 Pulse Rate 76 Pulse Rate 80 Pulse Rate 77 Pulse Rate 81 Pulse Rate 82 Pulse Rate 81 Pulse Rate 90 Pulse Rate 93 Pulse Rate 90 Pulse Rate 93 Pulse Rate 92 Respiratory Rate 15 Respiratory Rate 14 Respiratory Rate 22 Respiratory Rate 15 Respiratory Rate 17 Respiratory Rate 17 Respiratory Rate 12 Respiratory Rate 21 Respiratory Rate 20 Respiratory Rate 25 Respiratory Rate 23 Respiratory Rate 20 Respiratory Rate 20 Blood Pressure 125/69 Blood Pressure 116/71 Blood Pressure 125/69 Blood Pressure 125/69 Blood Pressure 125/69 Blood Pressure 115/59 Blood Pressure 118/56 Blood Pressure 142/67 Blood Pressure 142/67 Blood Pressure 142/67 Blood Pressure 135/65 Blood Pressure 135/65 Blood Pressure 135/65 O2 Sat by Pulse Oximetry 100 O2 Sat by Pulse Oximetry 100 O2 Sat by Pulse Oximetry 100 O2 Sat by Pulse Oximetry 100 O2 Sat by Pulse Oximetry 100 O2 Sat by Pulse Oximetry 100 O2 Sat by Pulse Oximetry 100 O2 Sat by Pulse Oximetry 100 O2 Sat by Pulse Oximetry 100 O2 Sat by Pulse Oximetry 100 O2 Sat by Pulse Oximetry 100 O2 Sat by Pulse Oximetry 100 O2 Sat by Pulse Oximetry 100 O2 Sat by Pulse Oximetry 100 General Limitations: No Limitations General Appearance: Alert and In No Apparent Distress Head Head Exam: Normal Inspection Eyes Eye exam: Normal Appearance ENT ENT Exam: Normal Exam External Ear Exam: Normal External Inspection TM/Canal Exam: Bilateral: Normal Nose Exam: Normal Nose Exam Mouth Exam: Normal Inspection Throat Exam: Normal Inspection Neck Neck Exam: Normal Inspection Chest Chest Inspection: Normal Inspection Respiratory Respiratory Exam: Bilateral: Crackles Cardiovascular Cardiovascular Exam: Regular Rate and Normal Rhythm Abdominal Exam Abdominal Exam: Normal Inspection, Normal Bowel Sounds and Soft Extremities Extremities Exam: Edema (2+ pitting edema in bilat lower ext) Back Back Exam: Normal Inspection Neurologic Neurological Exam: Alert and Oriented X3 Psychiatric Psychiatric Exam: Normal Affect and Normal Mood Skin Skin Exam: Warm, Dry, Intact and Normal Color ROR Labs Reviewed Laboratory Results Reviewed?: Yes 04/22/25 10:53 04/22/25 11:50 Laboratory: WBC 4.6 X10^3/uL (3.6-10.0) 04/22/25 10:53 RBC 2.86 X10^6/uL (3.5-5.4) L 04/22/25 10:53 Hgb 9.0 g/dL (12.0-16.0) L 04/22/25 10:53 Hct 27.3 % (36.0-47.0) L 04/22/25 10:53 MCV 95.4 fL (80.0-100.0) 04/22/25 10:53 MCH 31.5 pg (27.0-34.0) 04/22/25 10:53 MCHC 33.0 g/dL (33.0-35.0) 04/22/25 10:53 RDW 16.3 % (11.6-16.5) 04/22/25 10:53 Plt Count 193 X10^3/uL (150.0-450.0) 04/22/25 10:53 Plt Count Comment Adequate (ADEQUATE) 04/22/25 10:53 MPV 9.5 fL (7.4-11.0) 04/22/25 10:53 Neut % (Auto) 43.0 % (42.0-75.0) 04/22/25 10:53 Lymph % (Auto) 48.0 % (21.0-51.0) 04/22/25 10:53 Brooke % (Auto) 6.5 % (0.0-13.0) 04/22/25 10:53 Eos % (Auto) 1.1 % (0.9-2.9) 04/22/25 10:53 Baso % (Auto) 1.4 % (0.2-1.0) H 04/22/25 10:53 Neut # (Auto) 2.0 x10^3/uL (2.2-4.8) L 04/22/25 10:53 Lymph # (Auto) 2.2 X10^3/uL (1.3-2.9) 04/22/25 10:53 Brooke # (Auto) 0.3 x10^3/uL (0.3-0.8) 04/22/25 10:53 Eos # (Auto) 0.1 x10^3/uL (0.0-0.2) 04/22/25 10:53 Baso # (Auto) 0.1 X10^3/uL (0.0-0.1) 04/22/25 10:53 Absolute Nucleated RBC 1.2 /100WBC 04/22/25 10:53 Plt Morphology Comment Normal (NORMAL) 04/22/25 10:53 RBC Morphology Abnormal (NORMAL) A 04/22/25 10:53 Target Cells Slight A 04/22/25 10:53 PT 19.1 SECONDS (11.8-14.3) 04/22/25 10:53 INR Target Range - 04/22/25 10:53 INR 1.59 (0.8-1.3) H 04/22/25 10:53 APTT 34.1 SECONDS (22.9-36.5) 04/22/25 10:53 PTT Comment - 04/22/25 10:53 Sodium 137 mmol/L (136-145) 04/22/25 10:53 Corrected Sodium 140 mmol/L (136-145) 04/22/25 10:53 Potassium 6.5 mmol/L (3.5-5.1) H* 04/22/25 11:50 Chloride 104 mmol/L (98-107) 04/22/25 10:53 Carbon Dioxide 22.1 mmol/L (21-32) 04/22/25 10:53 BUN 75 mg/dL (7-18) H 04/22/25 10:53 Creatinine 2.98 mg/dL (0.55-1.02) H 04/22/25 10:53 Est GFR (MDRD) Af Amer 20 (>60) L 04/22/25 10:53 Est GFR (MDRD) Non-Af 16 (>60) L 04/22/25 10:53 Glucose 207 mg/dL (65-99) H 04/22/25 10:53 Calcium 9.0 mg/dL (8.5-10.1) 04/22/25 10:53 Corrected Calcium 10.1 mg/dL (8.5-10.1) 04/22/25 10:53 Magnesium 2.2 mg/dL (2.0-2.9) 04/22/25 10:53 Total Bilirubin 5.60 mg/dL (0.2-1.0) H 04/22/25 10:53 AST 60 Units/L (15-37) H 04/22/25 10:53 ALT 31 Units/L (12-78) 04/22/25 10:53 Alkaline Phosphatase 92 Units/L (46-116) 04/22/25 10:53 Creatine Kinase 247 Units/L (26-192) H 04/22/25 10:53 Troponin I High Sens 42.2 ng/L (4.0-60.0) 04/22/25 10:53 B-Natriuretic Peptide 3670 pg/mL (0-79) H 04/22/25 10:53 Total Protein 7.5 g/dL (6.4-8.2) 04/22/25 10:53 Albumin 2.6 g/dL (3.4-5.0) L 04/22/25 10:53 Globulin 4.9 g/dL (2.5-4.5) H 04/22/25 10:53 Albumin/Globulin Ratio 0.5 Ratio (1.1-2.1) L 04/22/25 10:53 Specimen Type Clean catch urine 04/22/25 11:50 Urine Color Yellow (YELLOW) 04/22/25 11:50 Urine Appearance Clear (CLEAR) 04/22/25 11:50 Urine pH 5.0 (5.0 - 8.0) 04/22/25 11:50 Ur Specific [place] 1.020 (1.000-1.030) 04/22/25 11:50 Urine Protein 2+ (NEGATIVE) 04/22/25 11:50 Urine Glucose (UA) Negative (NEGATIVE) 04/22/25 11:50 Urine Ketones Negative (NEGATIVE) 04/22/25 11:50 Urine Blood Negative (NEGATIVE) 04/22/25 11:50 Urine Nitrite Negative (NEGATIVE) 04/22/25 11:50 Urine Bilirubin Negative (NEGATIVE) 04/22/25 11:50 Urine Urobilinogen Normal (NORMAL) 04/22/25 11:50 Ur Leukocyte Esterase Negative (NEGATIVE) 04/22/25 11:50 Urine RBC None seen /HPF (0-3) 04/22/25 11:50 Urine WBC 0-2 /HPF (0-5) 04/22/25 11:50 Ur Squamous Epith Cells Rare /HPF (NEGATIVE) 04/22/25 11:50 Amorphous Sediment 1+ /HPF (NEGATIVE) 04/22/25 11:50 Urine Bacteria 2+ /HPF (NEGATIVE) 04/22/25 11:50 Ur Culture Indicated? Yes/culture set up 04/22/25 11:50 Opioid Opioid Risk Tool Age (Noah box if 16-45): No History of Preadolescent Sexual Abuse: No Total: 0 Total Score Risk Category: Low Risk Copyright: Cortez WALLER predicting aberrant behaviors Discharge Plan Diagnosis Discharge Problem: Acute exacerbation of CHF (congestive heart failure), Acute hyperkalemia, CKD (chronic kidney disease) Discharge Plan Patient Disposition: ADMITTED INPATIENT Condition: Stable Orders to Discharge Patient Discharge Orders: Transfer (Routine); Ordered 04/22/25 Ordered By: Gene Hopson ADDITIONAL NOTES Additional Notes Additional Notes: Pt accepted by Dr Vu
[2025-04-22 11:18] LABS: INR 1.59 (0.8-1.3)
[2025-04-22] MEDS: ZOFRAN INJ 4 MG VIAL IVP ONE (11:19)
[2025-04-22] MEDS: MORPHINE SULFATE INJ 4 MG IVP ONE (11:19)
[2025-04-22 11:23] LABS: COR CA(FOR HYPOALB) 10.1 mg/dL (8.5-10.1); COR NA(FOR HYPERGLY) 140.0 mmol/L (136-145); CREATININE 2.98 mg/dL (0.55-1.02); eGFR NON BLACK RACES 16.0 (>60)
[2025-04-22 11:28] LABS: PLATELET MORPHOLOGY COMMENT NORMAL (NORMAL)
[2025-04-22 12:00] LABS: BLOOD/HEMOGLOBIN,URINE NEGATIVE (NEGATIVE); LEUKOCYTE ESTERASE ,URINE NEGATIVE (NEGATIVE); NITRITES,URINE NEGATIVE (NEGATIVE)
[2025-04-22 12:14] LABS: APPEARANCE,URINE CLEAR (CLEAR)
[2025-04-22 12:15] LABS: SQUAMOUS EPITHELIAL CELL,UR RARE /HPF (NEGATIVE)
[2025-04-22] MEDS: CALCIUM GLUCONATE 10% 1 G in NS 100 ML IV 100 ML IV ONE (13:01)
[2025-04-22] MEDS: LASIX IVP ONE (13:01)
[2025-04-22] MEDS: NovoLIN R (or HumuLIN R) IV ONE (13:02)
[2025-04-22] MEDS: D50W ABBOJECT SYR IV ONE (13:02)
[2025-04-22] MEDS: SODIUM BICARBONATE 8.4% INJ ADULT IVP ONE (13:02)
[2025-04-22] MEDS ORDERED: PEPCID TAB 20 MG PO PRN (14:20)
[2025-04-22] MEDS ORDERED: ALPRAZOLAM ODT PO PRN (14:20)
[2025-04-22] MEDS ORDERED: CONSULT PHARMACY - POTASSIUM & MAGNESIUM XX SCH (15:00)
[2025-04-22] MEDS ORDERED: XOPENEX 1.25 MG/3 ML NEBULE NEB PRN (15:19)
[2025-04-22] MEDS: NORCO 5/325 MG TAB PO PRN (16:20)
[2025-04-22] MEDS: LASIX IVP SCH (16:22)
[2025-04-22 16:39] VITALS: BMI 26.7
--- NOTE | 2025-04-22 16:49 | EKG ---
Test Reason : DYSPNEA Blood Pressure : */* mmHG Vent. Rate : 75 BPM Atrial Rate : 75 BPM P-R Int : 118 ms QRS Dur : 136 ms QT Int : 408 ms P-R-T Axes : 60 -60 79 degrees QTc Int : 455 ms Normal sinus rhythm Right bundle branch block Left anterior fascicular block Bifascicular block Abnormal ECG When compared with ECG of 22-APR-2025 11:06, Borderline criteria for Lateral infarct are no longer present Confirmed by Jose Angel Kaplan MD ([id number]) on 04/23/2025 5:48:56 AM Referred By: Confirmed By: Jose Angel Kaplan MD
--- NOTE | 2025-04-22 18:15 | RAD ---
EXAM: CHEST, 1 VIEW HISTORY: Shortness of Breath, EDEMA; COMPARISON: Prior study or studies were utilized for comparison during interpretation with the most relevant dated 01/13/2025 TECHNIQUE: CHEST, 1 VIEW FINDINGS: Chest: Lines and tubes: None Mediastinum: Median sternotomy wires are present. The cardiac shadow is enlarged. Pulmonary vessels: There is pulmonary vascular congestion. Lung roberts: Patchy opacities are seen Pleura: No effusion. No pneumothorax. Bones and soft tissues: No acute osseous or soft tissue abnormality. IMPRESSION: 1. Findings suggest heart failure exacerbation THIS IS AN ELECTRONICALLY VERIFIED FINAL REPORT 04/22/2025 6:12 PM - Electronically signed by Jsoh Torrez MD
[2025-04-22] MEDS: ULTRAM PO PRN (19:11)
[2025-04-22] MEDS: SNACK - Diabetic Appropriate PO SCH (19:32)
--- NOTE | 2025-04-22 19:32 | DR.H&P ---
H&P History & Physical for Day of: H&P Date: 04/22/25 Chief Complaint Chief Complaint: SWELLING ALL OVER, SOB History of Present Illness History of Present Illness: 74 yo WF, ER admission with hx of CHF, c/o increasing edema periopherally, accomp by dyspnea with exertion. Denies other complaints. Denies CP. Denies fever. Denies leg pain. Chief Complaint:: Pt c/o one week of progressively worsening swelling of bilateral lower extremities, redness to bilateral feet with constant buring pain and exertional shortness of breath. Pt also c/o chronic lower back pain that is severe. Past Medical History Past Medical History: Anxiety, Arthritis, CHF, Coronary Artery Disease, Depression, Diabetes, Hypertension, Liver Disease, [place] and Renal Disease Past Surgical History Surgical History: CABG/Valve Surgery, Mastectomy and Tonsillectomy Family History Family Medical History: Diabetes Mellitus, Cancer, [place], Coronary Artery Disease, Heart Failure and Hypertension Social History Does patient currently use any type of tobacco product: No Have you used tobacco products in the last 12 months: No Type of Tobacco Use: None Does any household member use tobacco: No Alcohol Use: None Drug Use: None Medications Home Medications: Home Medications Medication Instructions Recorded Confirmed Type famotidine 20 mg tablet 20 mg PO BID PRN Heartburn 1 11/11/23 04/22/25 History metoprolol tartrate 25 mg tablet 12.5 mg PO DAILY 08/1804/22/25 History omeprazole 40 mg capsule,delayed 40 mg PO QDAY 4 04/22/25 History release spironolactone 25 mg tablet 12.5 mg PO DAILY 10/05/24 04/22/25 History furosemide 20 mg tablet 20 mg PO QDAY 01/05/2504/22 History ciprofloxacin HCl 500 mg tablet 500 mg PO BID 04/22/25 04/22/25 History hydrocodone 5 mg-acetaminophen 325 1 tab PO QDAY PRN 0 04/22/25 04/22/25 History mg tablet midodrine 5 mg tablet 5 mg PO TID 04/22/25 5 History pantoprazole 40 mg tablet,delayed 40 mg PO BID 5 04/22/25 History release paroxetine HCl 10 mg tablet 10 mg PO QDAY 04/22/2503/11 History sucralfate 1 gram tablet 1 g PO BID 04/22/25 04/22/25 History Allergies Allergies Allergy/AdvReac Type Severity Reaction Status Date / Time [id number] Reductase Allergy Verified 01/13/25 16:28 Inhibitor Labs 04/22/25 10:53 04/22/25 11:50 Labs: Laboratory WBC 4.6 X10^3/uL (3.6-10.0) 04/22/25 10:53 RBC 2.86 X10^6/uL (3.5-5.4) L 04/22/25 10:53 Hgb 9.0 g/dL (12.0-16.0) L 04/22/25 10:53 Hct 27.3 % (36.0-47.0) L 04/22/25 10:53 MCV 95.4 fL (80.0-100.0) 04/22/25 10:53 MCH 31.5 pg (27.0-34.0) 04/22/25 10:53 MCHC 33.0 g/dL (33.0-35.0) 04/22/25 10:53 RDW 16.3 % (11.6-16.5) 04/22/25 10:53 Plt Count 193 X10^3/uL (150.0-450.0) 04/22/25 10:53 Plt Count Comment Adequate (ADEQUATE) 04/22/25 10:53 MPV 9.5 fL (7.4-11.0) 04/22/25 10:53 Neut % (Auto) 43.0 % (42.0-75.0) 04/22/25 10:53 Lymph % (Auto) 48.0 % (21.0-51.0) 04/22/25 10:53 Swisher % (Auto) 6.5 % (0.0-13.0) 04/22/25 10:53 Eos % (Auto) 1.1 % (0.9-2.9) 04/22/25 10:53 Baso % (Auto) 1.4 % (0.2-1.0) H 04/22/25 10:53 Neut # (Auto) 2.0 x10^3/uL (2.2-4.8) L 04/22/25 10:53 Lymph # (Auto) 2.2 X10^3/uL (1.3-2.9) 04/22/25 10:53 Swisher # (Auto) 0.3 x10^3/uL (0.3-0.8) 04/22/25 10:53 Eos # (Auto) 0.1 x10^3/uL (0.0-0.2) 04/22/25 10:53 Baso # (Auto) 0.1 X10^3/uL (0.0-0.1) 04/22/25 10:53 Absolute Nucleated RBC 1.2 /100WBC 04/22/25 10:53 Plt Morphology Comment Normal (NORMAL) 04/22/25 10:53 RBC Morphology Abnormal (NORMAL) A 04/22/25 10:53 Target Cells Slight A 04/22/25 10:53 PT 19.1 SECONDS (11.8-14.3) 04/22/25 10:53 INR Target Range - 04/22/25 10:53 INR 1.59 (0.8-1.3) H 04/22/25 10:53 APTT 34.1 SECONDS (22.9-36.5) 04/22/25 10:53 PTT Comment - 04/22/25 10:53 Sodium 137 mmol/L (136-145) 04/22/25 10:53 Corrected Sodium 140 mmol/L (136-145) 04/22/25 10:53 Potassium 6.5 mmol/L (3.5-5.1) H* 04/22/25 11:50 Chloride 104 mmol/L (98-107) 04/22/25 10:53 Carbon Dioxide 22.1 mmol/L (21-32) 04/22/25 10:53 BUN 75 mg/dL (7-18) H 04/22/25 10:53 Creatinine 2.98 mg/dL (0.55-1.02) H 04/22/25 10:53 Est GFR (MDRD) Af Amer 20 (>60) L 04/22/25 10:53 Est GFR (MDRD) Non-Af 16 (>60) L 04/22/25 10:53 Glucose 207 mg/dL (65-99) H 04/22/25 10:53 Calcium 9.0 mg/dL (8.5-10.1) 04/22/25 10:53 Corrected Calcium 10.1 mg/dL (8.5-10.1) 04/22/25 10:53 Magnesium 2.2 mg/dL (2.0-2.9) 04/22/25 10:53 Total Bilirubin 5.60 mg/dL (0.2-1.0) H 04/22/25 10:53 AST 60 Units/L (15-37) H 04/22/25 10:53 ALT 31 Units/L (12-78) 04/22/25 10:53 Alkaline Phosphatase 92 Units/L (46-116) 04/22/25 10:53 Creatine Kinase 189 Units/L (26-192) 04/22/25 15:47 Troponin I High Sens 41.2 ng/L (4.0-60.0) 04/22/25 15:47 B-Natriuretic Peptide 3670 pg/mL (0-79) H 04/22/25 10:53 Total Protein 7.5 g/dL (6.4-8.2) 04/22/25 10:53 Albumin 2.6 g/dL (3.4-5.0) L 04/22/25 10:53 Globulin 4.9 g/dL (2.5-4.5) H 04/22/25 10:53 Albumin/Globulin Ratio 0.5 Ratio (1.1-2.1) L 04/22/25 10:53 Specimen Type Clean catch urine 04/22/25 11:50 Urine Color Yellow (YELLOW) 04/22/25 11:50 Urine Appearance Clear (CLEAR) 04/22/25 11:50 Urine pH 5.0 (5.0 - 8.0) 04/22/25 11:50 Ur Specific [place] 1.020 (1.000-1.030) 04/22/25 11:50 Urine Protein 2+ (NEGATIVE) 04/22/25 11:50 Urine Glucose (UA) Negative (NEGATIVE) 04/22/25 11:50 Urine Ketones Negative (NEGATIVE) 04/22/25 11:50 Urine Blood Negative (NEGATIVE) 04/22/25 11:50 Urine Nitrite Negative (NEGATIVE) 04/22/25 11:50 Urine Bilirubin Negative (NEGATIVE) 04/22/25 11:50 Urine Urobilinogen Normal (NORMAL) 04/22/25 11:50 Ur Leukocyte Esterase Negative (NEGATIVE) 04/22/25 11:50 Urine RBC None seen /HPF (0-3) 04/22/25 11:50 Urine WBC 0-2 /HPF (0-5) 04/22/25 11:50 Ur Squamous Epith Cells Rare /HPF (NEGATIVE) 04/22/25 11:50 Amorphous Sediment 1+ /HPF (NEGATIVE) 04/22/25 11:50 Urine Bacteria 2+ /HPF (NEGATIVE) 04/22/25 11:50 Ur Culture Indicated? Yes/culture set up 04/22/25 11:50 Review of Systems Constitutional: Weakness Eyes: No Symptoms Reported ENT: No Symptoms Reported Respiratory: Shortness of Breath Cardiovascular: Orthopnea and Edema Gastrointestinal: No Symptoms Reported Genitourinary: No Symptoms Reported Musculoskeletal: Back Pain Skin: No Symptoms Reported Neurological: Weakness Physical Exam Vital Signs: Vital Signs Temperature 98.2 F Temperature 97.5 F Pulse Rate [Right Radial] 79 Pulse Rate [Right Radial] 88 Pulse Rate 73 Pulse Rate 74 Pulse Rate 90 Pulse Rate 79 Pulse Rate 74 Pulse Rate 74 Pulse Rate 74 Pulse Rate 74 Pulse Rate 75 Pulse Rate 76 Pulse Rate 80 Pulse Rate 77 Pulse Rate 81 Pulse Rate 82 Pulse Rate 81 Respiratory Rate 18 Respiratory Rate 17 Respiratory Rate 18 Respiratory Rate 18 Respiratory Rate 18 Respiratory Rate 15 Respiratory Rate 17 Respiratory Rate 28 Respiratory Rate 15 Respiratory Rate 14 Respiratory Rate 22 Respiratory Rate 15 Respiratory Rate 17 Respiratory Rate 17 Respiratory Rate 12 Respiratory Rate 21 Respiratory Rate 20 Respiratory Rate 25 Respiratory Rate 23 Blood Pressure [Right Arm] 137/63 Blood Pressure [Right Arm] 139/66 Blood Pressure 120/77 Blood Pressure 125/59 Blood Pressure 125/69 Blood Pressure 116/71 Blood Pressure 125/69 Blood Pressure 125/69 Blood Pressure 125/69 Blood Pressure 115/59 Blood Pressure 118/56 O2 Sat by Pulse Oximetry 100 O2 Sat by Pulse Oximetry 100 O2 Sat by Pulse Oximetry 100 O2 Sat by Pulse Oximetry 100 O2 Sat by Pulse Oximetry 99 O2 Sat by Pulse Oximetry 100 O2 Sat by Pulse Oximetry 100 O2 Sat by Pulse Oximetry 100 O2 Sat by Pulse Oximetry 100 O2 Sat by Pulse Oximetry 100 O2 Sat by Pulse Oximetry 100 O2 Sat by Pulse Oximetry 100 O2 Sat by Pulse Oximetry 100 O2 Sat by Pulse Oximetry 100 Oriented: Normal Eyes: Normal Nose: Normal Throat: Dry Respiratory: Diminished Throughout Cardiovascular: Edema Auscultation: Bowel Sounds: Normal Palpation: Other (moderate, diffuse distention) Tenderness: Diffuse and Mild Skin: Decreased Turgur Musculoskeletal: Back:Lumbar Psychiatric: Anxiety Mood Description: Anxious Affect: Anxious Speech Pattern: Clear and Appropriate Assessment/Plan (1) Acute exacerbation of CHF (congestive heart failure): Status: Acute Plan: ADMIT, CONFIRM HOME MEDICATIONS BP CONTROL, CARDIAC MONITORING CXR ON ADMISSION, STRICT I&Os AM FLP, prn supplemental o2, Obtain an ECHO if last results >1year (2) Acute hyperkalemia: Status: Acute (3) Acute on chronic renal insufficiency: Status: Acute (4) Type 2 diabetes mellitus with hyperglycemia: Qualifiers: Diabetes mellitus care home insulin use: without termite treater helper use Q ualified Code(s): E11.65 - Type 2 diabetes mellitus with hyperglycemia Status: Chronic (5) CAD (coronary artery disease): Status: Acute
[2025-04-22] MEDS ORDERED: SNACK - Diabetic Appropriate PO SCH (20:00)
[2025-04-22] MEDS ORDERED: AMARYL TAB 4 MG PO SCH (21:00)
[2025-04-22] MEDS ORDERED: NAPROXEN 375 MG PO SCH (21:00)
[2025-04-22] MEDS: CIPRO TAB 500 MG PO SCH (21:04)
[2025-04-22] MEDS: ENTRESTO 49/51 MG TABLET PO SCH (21:04)
[2025-04-22] MEDS: TRICOR TAB 145 MG PO SCH (21:04)
[2025-04-22] MEDS: PROTONIX TAB 40 MG PO SCH (21:04)
[2025-04-22] MEDS: CARAFATE PO SCH (21:04)
[2025-04-22] MEDS: PROAMATINE PO SCH (21:04)
[2025-04-22] MEDS ORDERED: GLUCOPHAGE XR 24-HR PO SCH (22:00)
[2025-04-23 06:01] LABS: MEAN PLATELET VOLUME 9.4 fL (7.4-11.0); RED CELL DISTRIBUTION WIDTH 16.0 % (11.6-16.5)
[2025-04-23 06:16] LABS: CHOL/HDL RATIO 10.4 (0.0-5.0); COR CA(FOR HYPOALB) 10.4 mg/dL (8.5-10.1); COR NA(FOR HYPERGLY) 139.0 mmol/L (136-145); CREATININE 2.83 mg/dL (0.55-1.02); eGFR NON BLACK RACES 17.0 (>60)
[2025-04-23] MEDS ORDERED: ALDACTONE TAB 25 MG PO SCH (09:00)
[2025-04-23] MEDS ORDERED: PHARMACY CONSULT XX SCH (09:00)
[2025-04-23] MEDS ORDERED: KLOR-CON 10 MEQ TAB PO SCH (09:00)
[2025-04-23] MEDS ORDERED: PATIENT'S HOME MEDICATION (Omeprazole 40 mg capsule,delayed release(DR/EC)) PO SCH (09:00)
[2025-04-23] MEDS: PLAVIX PO SCH (09:05)
[2025-04-23] MEDS: LOPRESSOR TAB 25 MG PO SCH (09:06)
[2025-04-23] MEDS: PAXIL PO SCH (09:07)
[2025-04-23] MEDS: IMDUR PO SCH (09:07)
[2025-04-23 10:53] LABS: RETICULOCYTE % 2.57 % (0.8-2.2)
[2025-04-23] MEDS: NS 1,000 ML IV 1,000 ML IV SCH (10:59)
[2025-04-23] MEDS ORDERED: KAYEXALATE SUSP PO SCH (11:00)
[2025-04-23] MEDS: KAYEXALATE SUSP ONE (13:20)
--- NOTE | 2025-04-23 17:42 | PCM.PROG ---
Progress Note Progress Note for Day of Date of Exam: 04/23/25 Subjective Subjective: PT IS 74 WF, ER ADMISSION WITH SOB, DIFFUSE EDEMA. PT HAS CHF AND HOME MEDICATION VERIFIED AND RESUMED ENTRESTO, BB AND STATIN THERAPY. PT IS UNSURE OF HER LAST ECHO. ECHO RESULTS AT [facility] ~2YRS AGO. PT HAS RENAL DISEASE BUN, CREAT 77/2.83 POTASSIUM 6. PT IS CURRENTLY ON IV LASIX WITH STRICT I&OS. REPEAT AM CXR AND CONTINUE EKG MONITORING. 125/67, HR 77 Past Medical Family Social History Allergies: Allergies [id number]-[id number] Reductase Inhibitor Allergy (Verified 01/13/25 16:28) Vital Signs and I&O's Vital Signs: Vital Signs Temperature 97.3 F Temperature 97.3 F Pulse Rate [Right Radial] 77 Pulse Rate [Right Radial] 77 Respiratory Rate 18 Respiratory Rate 16 Respiratory Rate 17 Respiratory Rate 16 Blood Pressure [Right Arm] 125/67 Blood Pressure [Right Arm] 132/54 O2 Sat by Pulse Oximetry 98 O2 Sat by Pulse Oximetry 100 Intake and Output: Intake & Output 04/21/25 04/22/25 04/23/25 04/24/25 11:59 11:59 11:59 11:59 Intake Total 185 / 185 679 / 679 Balance 185 / 185 679 / 679 Physical Exam Oriented: Normal Eyes: Normal Nose: Normal Throat: Dry Cardiovascular: Edema Auscultation: Bowel Sounds: Normal Tenderness: Diffuse and Mild Skin: Decreased Turgur Musculoskeletal: Back:Lumbar Psychiatric: Anxiety Mood Description: Anxious Affect: Anxious Speech Pattern: Clear and Appropriate Laboratory and Diagnostics 04/23/25 05:23 04/23/25 05:23 Labs: 04/22/25 11:50 Urine,Catheterized Urine Culture - Preliminary Laboratory WBC 4.3 X10^3/uL (3.6-10.0) 04/23/25 05:23 RBC 2.53 X10^6/uL (3.5-5.4) L 04/23/25 05:23 Hgb 8.1 g/dL (12.0-16.0) L 04/23/25 05:23 Hct 24.2 % (36.0-47.0) L 04/23/25 05:23 MCV 95.5 fL (80.0-100.0) 04/23/25 05:23 MCH 31.9 pg (27.0-34.0) 04/23/25 05:23 MCHC 33.4 g/dL (33.0-35.0) 04/23/25 05:23 RDW 16.0 % (11.6-16.5) 04/23/25 05:23 Plt Count 160 X10^3/uL (150.0-450.0) 04/23/25 05:23 Plt Count Comment Adequate (ADEQUATE) 04/22/25 10:53 MPV 9.4 fL (7.4-11.0) 04/23/25 05:23 Neut % (Auto) 68.9 % (42.0-75.0) 04/23/25 05:23 Lymph % (Auto) 15.9 % (21.0-51.0) L 04/23/25 05:23 Delta % (Auto) 10.6 % (0.0-13.0) 04/23/25 05:23 Eos % (Auto) 3.4 % (0.9-2.9) H 04/23/25 05:23 Baso % (Auto) 1.2 % (0.2-1.0) H 04/23/25 05:23 Neut # (Auto) 2.9 x10^3/uL (2.2-4.8) 04/23/25 05:23 Lymph # (Auto) 0.7 X10^3/uL (1.3-2.9) L 04/23/25 05:23 Delta # (Auto) 0.5 x10^3/uL (0.3-0.8) 04/23/25 05:23 Eos # (Auto) 0.1 x10^3/uL (0.0-0.2) 04/23/25 05:23 Baso # (Auto) 0.1 X10^3/uL (0.0-0.1) 04/23/25 05:23 Absolute Nucleated RBC 1.2 /100WBC 04/23/25 05:23 Plt Morphology Comment Normal (NORMAL) 04/22/25 10:53 RBC Morphology Abnormal (NORMAL) A 04/22/25 10:53 Target Cells Slight A 04/22/25 10:53 Absolute Retic 0.0652 10^6/uL 04/23/25 05:23 Percent Retic 2.57 % (0.8-2.2) H 04/23/25 05:23 PT 19.1 SECONDS (11.8-14.3) 04/22/25 10:53 INR Target Range - 04/22/25 10:53 INR 1.59 (0.8-1.3) H 04/22/25 10:53 APTT 34.1 SECONDS (22.9-36.5) 04/22/25 10:53 PTT Comment - 04/22/25 10:53 Sodium 138 mmol/L (136-145) 04/23/25 05:23 Corrected Sodium 139 mmol/L (136-145) 04/23/25 05:23 Potassium 6.0 mmol/L (3.5-5.1) H* 04/23/25 05:23 Chloride 105 mmol/L (98-107) 04/23/25 05:23 Carbon Dioxide 25.6 mmol/L (21-32) 04/23/25 05:23 BUN 77 mg/dL (7-18) H 04/23/25 05:23 Creatinine 2.83 mg/dL (0.55-1.02) H 04/23/25 05:23 Est GFR (MDRD) Af Amer 21 (>60) L 04/23/25 05:23 Est GFR (MDRD) Non-Af 17 (>60) L 04/23/25 05:23 Glucose 121 mg/dL (65-99) H 04/23/25 05:23 POC Glucose (mg/dL) 99 mg/dL (65-99) 04/23/25 15:49 Calcium 8.9 mg/dL (8.5-10.1) 04/23/25 05:23 Corrected Calcium 10.4 mg/dL (8.5-10.1) H 04/23/25 05:23 Magnesium 2.2 mg/dL (2.0-2.9) 04/22/25 10:53 Iron 169 ug/dL (50-175) 04/23/25 10:57 TIBC 328 ug/dL (250-450) 04/23/25 10:57 Transferrin 269 mg/dL (202-364) 04/23/25 10:57 Ferritin 197 ng/mL (8-252) 04/23/25 10:57 Total Bilirubin 4.50 mg/dL (0.2-1.0) H 04/23/25 05:23 AST 51 Units/L (15-37) H 04/23/25 05:23 ALT 25 Units/L (12-78) 04/23/25 05:23 Alkaline Phosphatase 76 Units/L (46-116) 04/23/25 05:23 Creatine Kinase 189 Units/L (26-192) 04/22/25 15:47 Troponin I High Sens 44.1 ng/L (4.0-60.0) 04/22/25 21:25 B-Natriuretic Peptide 2670 pg/mL (0-79) H 04/23/25 05:23 Total Protein 6.4 g/dL (6.4-8.2) 04/23/25 05:23 Albumin 2.1 g/dL (3.4-5.0) L 04/23/25 05:23 Globulin 4.3 g/dL (2.5-4.5) 04/23/25 05:23 Albumin/Globulin Ratio 0.5 Ratio (1.1-2.1) L 04/23/25 05:23 Triglycerides 86 mg/dL (0-150) 04/23/25 05:23 Cholesterol 156 mg/dL (0-200) 04/23/25 05:23 LDL Cholesterol, Calc 124 mg/dL (0-100) H 04/23/25 05:23 HDL Cholesterol 15 mg/dL (40-60) L 04/23/25 05:23 Cholesterol/HDL Ratio 10.4 (0.0-5.0) H 04/23/25 05:23 Vitamin B12 674 pg/mL (193-986) 04/23/25 10:57 Folate 6.7 ng/mL (>8.6) L 04/23/25 10:57 Specimen Type Clean catch urine 04/22/25 11:50 Urine Color Yellow (YELLOW) 04/22/25 11:50 Urine Appearance Clear (CLEAR) 04/22/25 11:50 Urine pH 5.0 (5.0 - 8.0) 04/22/25 11:50 Ur Specific [place] 1.020 (1.000-1.030) 04/22/25 11:50 Urine Protein 2+ (NEGATIVE) 04/22/25 11:50 Urine Glucose (UA) Negative (NEGATIVE) 04/22/25 11:50 Urine Ketones Negative (NEGATIVE) 04/22/25 11:50 Urine Blood Negative (NEGATIVE) 04/22/25 11:50 Urine Nitrite Negative (NEGATIVE) 04/22/25 11:50 Urine Bilirubin Negative (NEGATIVE) 04/22/25 11:50 Urine Urobilinogen Normal (NORMAL) 04/22/25 11:50 Ur Leukocyte Esterase Negative (NEGATIVE) 04/22/25 11:50 Urine RBC None seen /HPF (0-3) 04/22/25 11:50 Urine WBC 0-2 /HPF (0-5) 04/22/25 11:50 Ur Squamous Epith Cells Rare /HPF (NEGATIVE) 04/22/25 11:50 Amorphous Sediment 1+ /HPF (NEGATIVE) 04/22/25 11:50 Urine Bacteria 2+ /HPF (NEGATIVE) 04/22/25 11:50 Ur Culture Indicated? Yes/culture set up 04/22/25 11:50 Plan (1) Acute exacerbation of CHF (congestive heart failure): Status: Acute Plan: IV LASIX, ECHO BP CONTROL, CARDIAC MONITORING CXR ON ADMISSION, STRICT I&Os AM FLP, prn supplemental o2 (2) Acute hyperkalemia: Status: Acute (3) Acute on chronic renal insufficiency: Status: Acute (4) Type 2 diabetes mellitus with hyperglycemia: Status: Chronic Qualifiers: Diabetes mellitus residential insulin use: without residential use Q ualified Code(s): E11.65 - Type 2 diabetes mellitus with hyperglycemia (5) CAD (coronary artery disease): Status: Acute
[2025-04-23] MEDS: TRICOR TAB 48 MG PO SCH (21:18)
[2025-04-23] MEDS: ZOFRAN INJ 4 MG VIAL IVP PRN (21:20)
[2025-04-24] MEDS: GLUTOSE 15 GEL ORAL PO PRN (00:25)
[2025-04-24] MEDS: D50W ABBOJECT SYR IV ONE ×2 (02:06→11:22)
[2025-04-24] MEDS: MORPHINE SULFATE INJ 2 MG INJ IVP PRN (03:45)
[2025-04-24] MEDS: PHENERGAN INJ 25 MG IM PRN (04:20)
[2025-04-24 05:58] LABS: MEAN PLATELET VOLUME 8.8 fL (7.4-11.0); RED CELL DISTRIBUTION WIDTH 16.4 % (11.6-16.5)
[2025-04-24 06:07] LABS: COR CA(FOR HYPOALB) 10.4 mg/dL (8.5-10.1); CREATININE 2.52 mg/dL (0.55-1.02); eGFR NON BLACK RACES 20 (>60)
[2025-04-24 06:25] LABS: PLATELET MORPHOLOGY COMMENT NORMAL (NORMAL)
--- NOTE | 2025-04-24 07:17 | RAD ---
EXAM: Portable AP chest HISTORY: CHF renal disease breast CA COMPARISON: 04/22/2025 FINDINGS: Stable cardiomegaly with sternal wires. Vascular congestion and diffuse interstitial prominence slightly improved since 1 day prior. There is no pulmonary consolidation or pleural fluid. Gastric distention of the stomach is prominent. IMPRESSION: Similar cardiomegaly and CHF with slight improvement suggested. Gastric distention. THIS IS AN ELECTRONICALLY VERIFIED FINAL REPORT 04/24/2025 7:14 AM - Electronically signed by Ron Campbell MD
--- NOTE | 2025-04-24 08:43 | RAD ---
EXAM: Portable chest HISTORY: CHF exacerbation COMPARISON: 04/23/2025 FINDINGS: r Mild congestive heart failure remains in the form of pulmonary venous congestion and mild interstitial edema. No alveolar edema, alveolar infiltrates, areas of consolidation, or pleural effusions identified. Bony thorax is unremarkable. IMPRESSION: No change cardiomegaly with mild congestive heart failure THIS IS AN ELECTRONICALLY VERIFIED FINAL REPORT 04/24/2025 8:40 AM - Electronically signed by Alonzo Nash MD
[2025-04-24] MEDS ORDERED: CONSULT PHARMACY - POTASSIUM & MAGNESIUM XX SCH (09:00)
[2025-04-24] MEDS: MAG-OX TAB PO SCH (11:24)
[2025-04-24] MEDS ORDERED: PHARMACY CONSULT - TPN XX SCH (14:00)
[2025-04-24] MEDS: CLINIMIX 4.25%-5% 1,000 ML with MVI INJ (ADULT) 10 ML, MAGNESIUM SULFATE 50% INJ VIAL 1 G IV SCH (14:11)
[2025-04-24] MEDS: DRUG FILTER EXTENSION SET ONE (14:11)
[2025-04-24] MEDS: D5W 1,000 ML IV 1,000 ML IV SCH (16:04)
[2025-04-25] MEDS: D50W ABBOJECT SYR IV ONE ×2 (00:03→03:02)
[2025-04-25] MEDS: GLUTOSE 15 GEL ORAL PO PRN ×2 (02:10→12:05)
[2025-04-25] MEDS ORDERED: D5W 1,000 ML IV 1,000 ML IV SCH (02:43)
[2025-04-25 03:20] LABS: MEAN PLATELET VOLUME 9.1 fL (7.4-11.0); RED CELL DISTRIBUTION WIDTH 16.4 % (11.6-16.5)
[2025-04-25 03:34] LABS: COR CA(FOR HYPOALB) 9.9 mg/dL (8.5-10.1); CREATININE 2.32 mg/dL (0.55-1.02); eGFR NON BLACK RACES 22 (>60)
--- NOTE | 2025-04-25 03:38 | EKG ---
Test Reason : Chest Pain Blood Pressure : */* mmHG Vent. Rate : 90 BPM Atrial Rate : 90 BPM P-R Int : 130 ms QRS Dur : 134 ms QT Int : 374 ms P-R-T Axes : 6 122 -13 degrees QTc Int : 457 ms Sinus rhythm with premature atrial complexes Right bundle branch block Possible Lateral infarct , age undetermined Abnormal ECG When compared with ECG of 22-APR-2025 16:44, premature atrial complexes are now present Left anterior fascicular block is no longer present Borderline criteria for Lateral infarct are now present T wave inversion now evident in Inferior leads T wave inversion less evident in Lateral leads Confirmed by Jose Angel Kaplan MD ([id number]) on 04/25/2025 6:58:44 AM Referred By: Confirmed By: Jose Angel Kaplan MD
[2025-04-25 03:48] LABS: PLATELET MORPHOLOGY COMMENT NORMAL (NORMAL)
--- NOTE | 2025-04-25 04:06 | EKG ---
Test Reason : chest pain, arrythmia Blood Pressure : */* mmHG Vent. Rate : 98 BPM Atrial Rate : 98 BPM P-R Int : 134 ms QRS Dur : 136 ms QT Int : 362 ms P-R-T Axes : 62 -58 78 degrees QTc Int : 462 ms Normal sinus rhythm with sinus arrhythmia Right bundle branch block Left anterior fascicular block Bifascicular block Septal infarct , age undetermined Possible Lateral infarct (cited on or before 25-APR-2025) Abnormal ECG When compared with ECG of 25-APR-2025 03:37, (Unconfirmed) premature atrial complexes are no longer present Left anterior fascicular block is now present Serial changes of Lateral infarct present Confirmed by Jose Angel Kaplan MD ([id number]) on 04/25/2025 6:58:33 AM Referred By: Confirmed By: Jose Angel Kaplan MD
--- NOTE | 2025-04-25 05:31 | RAD ---
PROCEDURE: Chest X-ray 1 View. HISTORY: chf, sob; . TECHNIQUE: AP portable view. COMPARISON: 04/24/2025. TECHNICAL QUALITY: Satisfactory. FINDINGS: Unchanged mild cardiomegaly with previous sternotomy. Mediastinum and hilar regions show no masses or lymphadenopathy. Normal central vascularity. No pulmonary consolidation, masses, pleural fluid, or pneumothorax. No acute bony abnormality. IMPRESSION: Unchanged mild cardiomegaly with no other evidence of active disease. THIS IS AN ELECTRONICALLY VERIFIED FINAL REPORT 04/25/2025 5:28 AM - Electronically signed by Agustin Augustin MD
[2025-04-25] MEDS: ASPIRIN EC 81 MG PO SCH (08:00)
[2025-04-25] MEDS: DEXTROSE 10% 1,000 ML IV SCH (08:00)
[2025-04-25] MEDS: D50W ABBOJECT SYR ONE ×3 (09:00→12:35)
[2025-04-25] MEDS ORDERED: NS 500 ML IV 500 ML IV ONE (09:01)
[2025-04-25] MEDS: NS 500 ML IV 500 ML IV ONE (09:06)
--- NOTE | 2025-04-25 10:24 | PCM.PROG ---
Progress Note Progress Note for Day of Date of Exam: 04/25/25 Subjective Subjective: Patient seen at bedside, overnight patient continued to have hypoglycemia. She was started on D5 yesterday afternoon but continued to have glucose levels in the 30s to 50s. She has had poor intake. Her blood pressure was also noted to be low, 70s over 30s this morning. Patient had mentioned chest discomfort last night, troponin and EKG were done. She does have elevated troponin. She was transferred to the ICU. She has a history of CABG and CHF. She denies chest pain and shortness of breath this morning. Patient is alert and oriented. Patient was able to drink some apple juice this morning. Her fluids were changed to D10 and she was given a normal saline bolus for hypotension. Labs/imaging reviewed: - WBC 7.3 hemoglobin 8.6 potassium 3.9 BUN 67 creatinine 2.32 glucose 48 - Troponin 74, 168.7 - BNP 2940 - Chest x-ray: Cardiomegaly, no pleural effusion or vascular congestion noted. Plan: Continue ICU care for closer monitoring. Monitor blood pressure and glucose closely. Patient did receive normal saline 500 cc bolus. Blood pressure improved to systolic 90s to 100. Her recent glucose was 106. Discussed with patient about p.o. intake. She reports not having appetite. She agreed to eating fruits, drinking apple juice and Ensure. Patient does not want to start any medication for appetite at this time. Will hold all antihypertensives for this morning. Repeat troponin. Patient denies any cardiopulmonary symptoms at this time. Continue other home medications. Replace electrolytes as per protocol. Monitor AM labs/imaging. Time spent for clinical assessment, reviewing labs/imaging, physical exam, decision making and documentation greater than 45 mins. Past Medical Family Social History Allergies: Allergies [id number]-HUS-[id number] Reductase Inhibitor Allergy (Verified 01/13/25 16:28) Vital Signs and I&O's Vital Signs: Vital Signs Temperature 98.3 F Temperature 98.4 F Pulse Rate [Right Radial] 88 Pulse Rate [Right Radial] 101 Respiratory Rate 19 Respiratory Rate 20 Blood Pressure [Right Arm] 85/51 Blood Pressure [Right Arm] 120/60 O2 Sat by Pulse Oximetry 98 O2 Sat by Pulse Oximetry 95 Intake and Output: Intake & Output 04/22/25 04/23/25 04/24/25 04/25/25 23:59 23:59 23:59 23:59 Intake Total 110 / 110 1214 / 1214 2805 / 2805 540 / 540 Balance 110 / 110 1214 / 1214 2805 / 2805 540 / 540 Physical Exam Oriented: Normal Eyes: Normal Nose: Normal Throat: Dry Respiratory: Generalized and Diminished Cardiovascular: Edema Auscultation: Bowel Sounds: Normal Palpation: Normal Tenderness: Normal Skin: Decreased Turgur Musculoskeletal: Back:Lumbar Psychiatric: Normal Mood Description: Calm Affect: Normal Speech Pattern: Clear and Appropriate Laboratory and Diagnostics 04/25/25 03:08 04/25/25 03:08 Labs: 04/22/25 11:50 Urine,Catheterized Urine Culture - Final Laboratory WBC 7.3 X10^3/uL (3.6-10.0) 04/25/25 03:08 RBC 2.79 X10^6/uL (3.5-5.4) L 04/25/25 03:08 Hgb 8.6 g/dL (12.0-16.0) L 04/25/25 03:08 Hct 26.2 % (36.0-47.0) L 04/25/25 03:08 MCV 94.0 fL (80.0-100.0) 04/25/25 03:08 MCH 30.8 pg (27.0-34.0) 04/25/25 03:08 MCHC 32.7 g/dL (33.0-35.0) L 04/25/25 03:08 RDW 16.4 % (11.6-16.5) 04/25/25 03:08 Plt Count 196 X10^3/uL (150.0-450.0) 04/25/25 03:08 Plt Count Comment Adequate (ADEQUATE) 04/25/25 03:08 MPV 9.1 fL (7.4-11.0) 04/25/25 03:08 Neut % (Auto) 60.5 % (42.0-75.0) 04/25/25 03:08 Lymph % (Auto) 22.8 % (21.0-51.0) 04/25/25 03:08 [place] % (Auto) 13.1 % (0.0-13.0) H 04/25/25 03:08 Eos % (Auto) 2.5 % (0.9-2.9) 04/25/25 03:08 Baso % (Auto) 1.1 % (0.2-1.0) H 04/25/25 03:08 Neut # (Auto) 4.4 x10^3/uL (2.2-4.8) 04/25/25 03:08 Lymph # (Auto) 1.7 X10^3/uL (1.3-2.9) 04/25/25 03:08 [place] # (Auto) 1.0 x10^3/uL (0.3-0.8) H 04/25/25 03:08 Eos # (Auto) 0.2 x10^3/uL (0.0-0.2) 04/25/25 03:08 Baso # (Auto) 0.1 X10^3/uL (0.0-0.1) 04/25/25 03:08 Absolute Nucleated RBC 0.4 /100WBC 04/25/25 03:08 Total Counted 100 04/25/25 03:08 Neutrophils % (Manual) 61 % (39-76) 04/25/25 03:08 Lymphocytes % (Manual) 22 % (13-43) 04/25/25 03:08 Monocytes % (Manual) 13 % (4-9) H 04/25/25 03:08 Eosinophils % (Manual) 4 % (0-6) 04/25/25 03:08 Plt Morphology Comment Normal (NORMAL) 04/25/25 03:08 RBC Morphology Abnormal (NORMAL) A 04/25/25 03:08 Target Cells 1+ A 04/25/25 03:08 Absolute Retic 0.0652 10^6/uL 04/23/25 05:23 Percent Retic 2.57 % (0.8-2.2) H 04/23/25 05:23 PT 19.1 SECONDS (11.8-14.3) 04/22/25 10:53 INR Target Range - 04/22/25 10:53 INR 1.59 (0.8-1.3) H 04/22/25 10:53 APTT 34.1 SECONDS (22.9-36.5) 04/22/25 10:53 PTT Comment - 04/22/25 10:53 Sodium 136 mmol/L (136-145) 04/25/25 03:08 Corrected Sodium TNP 04/25/25 03:08 Potassium 3.9 mmol/L (3.5-5.1) 04/25/25 03:08 Chloride 101 mmol/L (98-107) 04/25/25 03:08 Carbon Dioxide 30.8 mmol/L (21-32) 04/25/25 03:08 BUN 67 mg/dL (7-18) H 04/25/25 03:08 Creatinine 2.32 mg/dL (0.55-1.02) H 04/25/25 03:08 Est GFR (MDRD) Af Amer 26 (>60) L 04/25/25 03:08 Est GFR (MDRD) Non-Af 22 (>60) L 04/25/25 03:08 Glucose 47 mg/dL (65-99) L* 04/25/25 03:08 POC Glucose (mg/dL) 106 mg/dL (65-99) H 04/25/25 09:54 Hemoglobin A1c 5.2 % 04/24/25 05:30 Calcium 8.1 mg/dL (8.5-10.1) L 04/25/25 03:08 Corrected Calcium 9.9 mg/dL (8.5-10.1) 04/25/25 03:08 Magnesium 1.9 mg/dL (2.0-2.9) L 04/24/25 05:30 Iron 169 ug/dL (50-175) 04/23/25 10:57 TIBC 328 ug/dL (250-450) 04/23/25 10:57 Transferrin 269 mg/dL (202-364) 04/23/25 10:57 Ferritin 197 ng/mL (8-252) 04/23/25 10:57 Total Bilirubin 3.60 mg/dL (0.2-1.0) H 04/25/25 03:08 AST 54 Units/L (15-37) H 04/25/25 03:08 ALT 24 Units/L (12-78) 04/25/25 03:08 Alkaline Phosphatase 81 Units/L (46-116) 04/25/25 03:08 Creatine Kinase 189 Units/L (26-192) 04/22/25 15:47 Troponin I High Sens 168.7 ng/L (4.0-60.0) H* 04/25/25 07:04 B-Natriuretic Peptide 2940 pg/mL (0-79) H 04/25/25 03:08 Total Protein 6.2 g/dL (6.4-8.2) L 04/25/25 03:08 Albumin 1.8 g/dL (3.4-5.0) L 04/25/25 03:08 Globulin 4.4 g/dL (2.5-4.5) 04/25/25 03:08 Albumin/Globulin Ratio 0.4 Ratio (1.1-2.1) L 04/25/25 03:08 Triglycerides 86 mg/dL (0-150) 04/23/25 05:23 Cholesterol 156 mg/dL (0-200) 04/23/25 05:23 LDL Cholesterol, Calc 124 mg/dL (0-100) H 04/23/25 05:23 HDL Cholesterol 15 mg/dL (40-60) L 04/23/25 05:23 Cholesterol/HDL Ratio 10.4 (0.0-5.0) H 04/23/25 05:23 Vitamin B12 674 pg/mL (193-986) 04/23/25 10:57 Folate 6.7 ng/mL (>8.6) L 04/23/25 10:57 Specimen Type Clean catch urine 04/22/25 11:50 Urine Color Yellow (YELLOW) 04/22/25 11:50 Urine Appearance Clear (CLEAR) 04/22/25 11:50 Urine pH 5.0 (5.0 - 8.0) 04/22/25 11:50 Ur Specific [place] 1.020 (1.000-1.030) 04/22/25 11:50 Urine Protein 2+ (NEGATIVE) 04/22/25 11:50 Urine Glucose (UA) Negative (NEGATIVE) 04/22/25 11:50 Urine Ketones Negative (NEGATIVE) 04/22/25 11:50 Urine Blood Negative (NEGATIVE) 04/22/25 11:50 Urine Nitrite Negative (NEGATIVE) 04/22/25 11:50 Urine Bilirubin Negative (NEGATIVE) 04/22/25 11:50 Urine Urobilinogen Normal (NORMAL) 04/22/25 11:50 Ur Leukocyte Esterase Negative (NEGATIVE) 04/22/25 11:50 Urine RBC None seen /HPF (0-3) 04/22/25 11:50 Urine WBC 0-2 /HPF (0-5) 04/22/25 11:50 Ur Squamous Epith Cells Rare /HPF (NEGATIVE) 04/22/25 11:50 Amorphous Sediment 1+ /HPF (NEGATIVE) 04/22/25 11:50 Urine Bacteria 2+ /HPF (NEGATIVE) 04/22/25 11:50 Ur Culture Indicated? Yes/culture set up 04/22/25 11:50 Plan (1) Hypotension: Status: Acute Qualifiers: Hypotension type: idiopathic hypotension Qualified Code(s): I95.0 - Idiopathic hypotension (2) Hypoglycemia: Status: Acute (3) Elevated troponin: Status: Acute (4) Acute exacerbation of CHF (congestive heart failure): Status: Acute Qualifiers: Heart failure type: unspecified Qualified Code(s): I50.9 - Heart failure, unspecified (5) Acute on chronic renal insufficiency: Status: Acute (6) Type 2 diabetes mellitus with hyperglycemia: Status: Chronic Qualifiers: Diabetes mellitus information writer insulin use: without information writer use Q ualified Code(s): E11.65 - Type 2 diabetes mellitus with hyperglycemia (7) CAD (coronary artery disease): Status: Chronic Qualifiers: Associated angina: without angina Coronary Disease-Associated Artery/Lesion type: bypass graft [place] vs. transplanted heart: [place] heart Q ualified Code(s): I25.810 - Atherosclerosis of coronary artery bypass graft(s) without angina pectoris
--- NOTE | 2025-04-25 11:45 | EKG ---
Test Reason : ELEVATED TROPONIN Blood Pressure : */* mmHG Vent. Rate : 91 BPM Atrial Rate : 91 BPM P-R Int : 132 ms QRS Dur : 132 ms QT Int : 382 ms P-R-T Axes : 70 -54 49 degrees QTc Int : 469 ms Sinus rhythm with premature atrial complexes Right bundle branch block Left anterior fascicular block Bifascicular block Possible Lateral infarct (cited on or before 25-APR-2025) Abnormal ECG When compared with ECG of 25-APR-2025 04:05, premature atrial complexes are now present Serial changes of Lateral infarct present Confirmed by Jose Angel Kaplan MD ([id number]) on 04/25/2025 3:47:46 PM Referred By: Confirmed By: Jose Angel Kaplan MD
[2025-04-25] MEDS: GLUTOSE 15 GEL ORAL PO ONE (12:17)
[2025-04-25 12:45] LABS: BLOOD/HEMOGLOBIN,URINE NEGATIVE (NEGATIVE); LEUKOCYTE ESTERASE ,URINE NEGATIVE (NEGATIVE); NITRITES,URINE NEGATIVE (NEGATIVE)
[2025-04-25 12:47] LABS: APPEARANCE,URINE CLEAR (CLEAR)
[2025-04-25] MEDS: TYLENOL 325 MG TAB PO PRN (12:49)
[2025-04-25] MEDS: HEPARIN SODIUM INJ 5000 UNITS IVP ONE (12:59)
[2025-04-25] MEDS: HEPARIN SODIUM IN D5W 25,000 UNITS/500 ML BAG IV PRN (13:02)
[2025-04-25 13:04] LABS: SQUAMOUS EPITHELIAL CELL,UR RARE /HPF (NEGATIVE)
[2025-04-25 13:04] LABS: INR 1.47 (0.8-1.3)
[2025-04-25 15:45] VITALS: O2SAT 100
[2025-04-25 16:02] VITALS: TEMP 98.7
[2025-04-25 17:45] VITALS: RESP 18
[2025-04-25 18:03] VITALS: BP 101/59; PULSE 97
[2025-04-26] MEDS ORDERED: LASIX IVP SCH (09:00)
== END 2025-04-25 19:20 | disposition short-term general hospital (02) | DRG 292 ==
LOC: ER 10:39 → MED/SURG 14:18 → ICU 04-25 08:12
PROVIDERS: ADMIT Internal Medicine; ATTEND Internal Medicine
DX: R79.1 Abnormal coagulation profile; R53.1 Weakness; R06.02 Shortness of breath; Z95.2 Presence of prosthetic heart valve; I50.89 Other heart failure; E78.5 Hyperlipidemia, unspecified; I13.0 Hypertensive heart and chronic kidney disease with heart failure and stage 1 through stage 4 chronic kidney disease, or unspecified chronic kidney disease; E11.22 Type 2 diabetes mellitus with diabetic chronic kidney disease; E80.6 Other disorders of bilirubin metabolism; R79.89 Other specified abnormal findings of blood chemistry; E11.649 Type 2 diabetes mellitus with hypoglycemia without coma; K74.69 Other cirrhosis of liver; I95.89 Other hypotension; K92.1 Melena; M54.59 Other low back pain; R60.0 Localized edema; N17.8 Other acute kidney failure; K72.10 Chronic hepatic failure without coma; R07.89 Other chest pain; R26.89 Other abnormalities of gait and mobility; R94.31 Abnormal electrocardiogram [ECG] [EKG]; I25.810 Atherosclerosis of coronary artery bypass graft(s) without angina pectoris; F41.8 Other specified anxiety disorders; E11.65 Type 2 diabetes mellitus with hyperglycemia; R41.0 Disorientation, unspecified; N18.9 Chronic kidney disease, unspecified

== ENCOUNTER 2025-08-27 14:51 | Inpatient (IN) ==
[2025-08-27 16:51] LABS: MEAN PLATELET VOLUME 11.2 fL (7.4-11.0); RED CELL DISTRIBUTION WIDTH 20.2 % (11.6-16.5)
[2025-08-27] MEDS: PROTONIX INJ 40 MG VIAL IVP SCH (17:00)
[2025-08-27] MEDS: D5 1/2 NS 1,000 ML 1,000 ML IV SCH (17:00)
[2025-08-27 17:59] LABS: PLATELET MORPHOLOGY COMMENT NORMAL (NORMAL)
[2025-08-27 19:06] LABS: INR 1.63 (0.8-1.3)
[2025-08-27 19:12] LABS: COR CA(FOR HYPOALB) 11.3 mg/dL (8.5-10.1); COR NA(FOR HYPERGLY) 157.0 mmol/L (136-145); CREATININE 1.76 mg/dL (0.55-1.02); eGFR NON BLACK RACES 30.0 (>60)
[2025-08-28 06:06] LABS: MEAN PLATELET VOLUME 10.4 fL (7.4-11.0); RED CELL DISTRIBUTION WIDTH 19.9 % (11.6-16.5)
[2025-08-28 06:17] LABS: COR CA(FOR HYPOALB) 11.3 mg/dL (8.5-10.1); COR NA(FOR HYPERGLY) 155.0 mmol/L (136-145); CREATININE 1.52 mg/dL (0.55-1.02); eGFR NON BLACK RACES 35.0 (>60)
[2025-08-28 06:45] LABS: BAND NEUTROPHILS % 3 % (0-10)
[2025-08-28 06:46] LABS: PLATELET MORPHOLOGY COMMENT NORMAL (NORMAL)
[2025-08-28] MEDS ORDERED: CONSULT PHARMACY - POTASSIUM & MAGNESIUM XX SCH (08:00)
[2025-08-28] MEDS: K-RIDER 10 MEQ/100 ML WATER 10 MEQ/100 ML BAG IV NR (08:43)
[2025-08-28 10:38] VITALS: BMI 16.0
--- NOTE | 2025-08-28 11:10 | US ---
EXAM: ABDOMEN HISTORY: LIVER DYSFUNCTION; COMPARISON: Numerous priors TECHNIQUE: Multiple thakkar scale and color flow Doppler images of the abdomen were obtained. FINDINGS: Liver: Heterogeneous and cirrhotic appearing liver with a small amount of surrounding ascites. No dominant liver mass lesions are seen. Gallbladder: Mildly distended and filled with intraluminal gallbladder sludge and gallstones. Please correlate for pain. Nuclear medicine HIDA imaging could also be considered Common bile duct: Within normal limits, measuring 2mm. Spleen: Not well seen on this examination. Pancreas: What is visualized is unremarkable but the pancreatic body and tail are largely obscured by overlying bowel gas. Right kidney: Unremarkable in appearance and normal in size, measuring 11 x 5 cm. No stones, masses, or hydronephrosis. Left kidney: Unremarkable in appearance and normal in size, measuring 10 x 5 cm. No stones, masses, or hydronephrosis. IVC: Unremarkable without concerning abnormalities. Abdominal aorta: Nonaneurysmal. . IMPRESSION: 1. Cirrhotic, heterogeneous liver with a small amount of ascites; no dominant hepatic mass identified sonographically. 2. Gallbladder sludge and cholelithiasis with mild distention. - Recommend correlation with RUQ symptoms. - HIDA scan may be considered to evaluate for chronic cholecystitis or functional gallbladder disease. 3. CBD normal (2 mm). 4. Spleen not well visualized. 5. Pancreas partially obscured by bowel gas. 6. Normal bilateral kidneys, IVC, and nonaneurysmal abdominal aorta. 7. No additional abdominal abnormalities are seen. THIS IS AN ELECTRONICALLY VERIFIED FINAL REPORT 08/28/2025 11:06 AM - Electronically signed by Samm Houston MD
[2025-08-28 12:15] LABS: INR 1.76 (0.8-1.3)
[2025-08-28] MEDS: LOVENOX INJ 30 MG SYR SC SCH (13:10)
--- NOTE | 2025-08-28 13:41 | DR.PROGNOT ---
HOSPITAL PROGRESS NOTE Progress Note for Day of: Progress Note Date: 08/28/25 Chief Complaint Chief Complaint: Patient was admitted yesterday with dehydration, acute kidney injury, hypernatremia with sodium 151. Very poor oral intake and weight loss. Patient was scheduled to have EGD and placement of PEG tube, her PT was elevated up to 20 and INR 1.76, her sodium 151, BUN 62 and creatinine 1.5, glucose 260, bilirubin 9.3 and slight elevated AST with normal liver function test otherwise, white count is 11.8 and hemoglobin 10.2. Patient is afebrile and stable vital signs. She is confined to bed answers only few words. She is jaundice, no cervical adenopathy. Lungs and heart are unremarkable. Abdomen is soft and flat with hypoactive bowel sounds. Past Medical Family Social History Allergies: Allergies atorvastatin Allergy (Verified 08/27/25 14:24) buspirone (From BuSpar) Allergy (Verified 08/27/25 14:24) haloperidol Allergy (Verified 08/27/25 14:24) morphine Allergy (Verified 08/27/25 14:24) quetiapine (From Seroquel) Allergy (Verified 08/27/25 14:24) Gvnioto-EYV-PvT Reductase Inhibitor Allergy (Verified 08/27/25 14:24) Vital Signs Vital Signs: Vital Signs Temperature 98.8 F Temperature 98.7 F Pulse Rate [Bilateral Radial] 94 Pulse Rate [Bilateral Radial] 73 Respiratory Rate 20 Respiratory Rate 16 Blood Pressure [Left Arm] 117/55 Blood Pressure [Left Arm] 154/70 O2 Sat by Pulse Oximetry 95 O2 Sat by Pulse Oximetry 98 Physical Exam Oriented: Not Oriented Eyes: Photophobia (Icteric sclera) Respiratory: Normal Cardiovascular: Normal GI:Auscultation: Decreased GI: Tenderness: Other (Moderate and diffuse tenderness) Speech Pattern: Unclear Laboratory and Diagnostics 08/28/25 05:18 08/28/25 05:18 Labs: Laboratory WBC 11.8 X10^3/uL (3.6-10.0) H 08/28/25 05:18 RBC 3.34 X10^6/uL (3.5-5.4) L 08/28/25 05:18 Hgb 10.2 g/dL (12.0-16.0) L 08/28/25 05:18 Hct 30.7 % (36.0-47.0) L 08/28/25 05:18 MCV 91.8 fL (80.0-100.0) 08/28/25 05:18 MCH 30.5 pg (27.0-34.0) 08/28/25 05:18 MCHC 33.2 g/dL (33.0-35.0) 08/28/25 05:18 RDW 19.9 % (11.6-16.5) H 08/28/25 05:18 Plt Count 151 X10^3/uL (150.0-450.0) 08/28/25 05:18 Plt Count Comment Adequate (ADEQUATE) 08/28/25 05:18 MPV 10.4 fL (7.4-11.0) 08/28/25 05:18 Neut % (Auto) 86.1 % (42.0-75.0) H 08/28/25 05:18 Lymph % (Auto) 5.8 % (21.0-51.0) L 08/28/25 05:18 [place] % (Auto) 7.4 % (0.0-13.0) 08/28/25 05:18 Eos % (Auto) 0.2 % (0.9-2.9) L 08/28/25 05:18 Baso % (Auto) 0.5 % (0.2-1.0) 08/28/25 05:18 Neut # (Auto) 10.2 x10^3/uL (2.2-4.8) H 08/28/25 05:18 Lymph # (Auto) 0.7 X10^3/uL (1.3-2.9) L 08/28/25 05:18 [place] # (Auto) 0.9 x10^3/uL (0.3-0.8) H 08/28/25 05:18 Eos # (Auto) 0.0 x10^3/uL (0.0-0.2) 08/28/25 05:18 Baso # (Auto) 0.1 X10^3/uL (0.0-0.1) 08/28/25 05:18 Absolute Nucleated RBC 0.2 /100WBC 08/28/25 05:18 Total Counted 100 08/28/25 05:18 Neutrophils % (Manual) 88 % (39-76) H 08/28/25 05:18 Band Neutrophils % 3 % (0-10) 08/28/25 05:18 Lymphocytes % (Manual) 5 % (13-43) L 08/28/25 05:18 Monocytes % (Manual) 4 % (4-9) 08/28/25 05:18 Plt Morphology Comment Normal (NORMAL) 08/28/25 05:18 RBC Morphology Abnormal (NORMAL) A 08/28/25 05:18 Anisocytosis Slight A 08/28/25 05:18 Target Cells 2+ A 08/28/25 05:18 PT 20.7 SECONDS (11.8-14.3) 08/28/25 11:59 INR Target Range - 08/28/25 11:59 INR 1.76 (0.8-1.3) H 08/28/25 11:59 Sodium 151 mmol/L (136-145) H* 08/28/25 05:18 Corrected Sodium 155 mmol/L (136-145) H 08/28/25 05:18 Potassium 3.5 mmol/L (3.5-5.1) 08/28/25 05:18 Chloride 107 mmol/L (98-107) 08/28/25 05:18 Carbon Dioxide 34.3 mmol/L (21-32) H 08/28/25 05:18 BUN 62 mg/dL (7-18) H 08/28/25 05:18 Creatinine 1.52 mg/dL (0.55-1.02) H 08/28/25 05:18 Est GFR (MDRD) Af Amer 43 (>60) L 08/28/25 05:18 Est GFR (MDRD) Non-Af 35 (>60) L 08/28/25 05:18 Glucose 260 mg/dL (65-99) H 08/28/25 05:18 Calcium 9.5 mg/dL (8.5-10.1) 08/28/25 05:18 Corrected Calcium 11.3 mg/dL (8.5-10.1) H 08/28/25 05:18 Magnesium 2.0 mg/dL (2.0-2.9) 08/28/25 05:18 Total Bilirubin 9.50 mg/dL (0.2-1.0) H 08/28/25 05:18 AST 49 Units/L (15-37) H 08/28/25 05:18 ALT 19 Units/L (12-78) 08/28/25 05:18 Alkaline Phosphatase 114 Units/L (46-116) 08/28/25 05:18 Total Protein 6.8 g/dL (6.4-8.2) 08/28/25 05:18 Albumin 1.8 g/dL (3.4-5.0) L 08/28/25 05:18 Globulin 5.0 g/dL (2.5-4.5) H 08/28/25 05:18 Albumin/Globulin Ratio 0.4 Ratio (1.1-2.1) L 08/28/25 05:18 Blood Type A NEGATIVE 08/28/25 12:14 Antibody Screen Negative 08/28/25 12:14 Assessment and Plan 1: Dehydration with acute kidney injury. 2: Liver cirrhosis with jaundice. Hypoalbuminemia. 3: Coagulopathy secondary to liver failure To transfuse fresh frozen plasma as well as albumin.
[2025-08-28] MEDS: ALBUMIN HUMAN 25%- 100 ML 100 ML IV SCH (14:08)
[2025-08-28] MEDS ORDERED: NS 250 ML IV 250 ML IV ONE (14:36)
[2025-08-28 15:35] LABS: BLOOD/HEMOGLOBIN,URINE 1+ (NEGATIVE); LEUKOCYTE ESTERASE ,URINE 2+ (NEGATIVE); NITRITES,URINE NEGATIVE (NEGATIVE)
[2025-08-28 15:37] LABS: APPEARANCE,URINE HAZY (CLEAR)
[2025-08-28 15:46] LABS: HYALINE CASTS, URINE FEW /LPF (NEGATIVE); SQUAMOUS EPITHELIAL CELL,UR FEW /HPF (NEGATIVE); YEAST,URINE RARE /HPF (NEGATIVE)
[2025-08-29 05:06] LABS: MEAN PLATELET VOLUME 10.3 fL (7.4-11.0); RED CELL DISTRIBUTION WIDTH 20.2 % (11.6-16.5)
[2025-08-29 05:12] LABS: PLATELET MORPHOLOGY COMMENT NORMAL (NORMAL)
[2025-08-29 05:19] LABS: COR CA(FOR HYPOALB) 10.1 mg/dL (8.5-10.1); COR NA(FOR HYPERGLY) 154.0 mmol/L (136-145); CREATININE 1.39 mg/dL (0.55-1.02); eGFR NON BLACK RACES 39.0 (>60)
[2025-08-29] MEDS ORDERED: CONSULT PHARMACY - POTASSIUM & MAGNESIUM XX SCH (07:00)
[2025-08-29] MEDS: MAG-OX TAB PO SCH (08:58)
[2025-08-29] MEDS: K-DUR TAB 20 MEQ PO SCH (08:58)
[2025-08-29] MEDS: NORCO 5/325 MG TAB PO PRN (10:54)
--- NOTE | 2025-08-29 11:09 | DR.PROGNOT ---
HOSPITAL PROGRESS NOTE Progress Note for Day of: Progress Note Date: 08/29/25 Chief Complaint Chief Complaint: No significant changes in the patient's condition, her oral intake is very poor and limited to small amount of water and liquid material. No acute distress but she has very limited ability to talk White count is 9.3, hemoglobin 9.1, platelet count 138, sodium 147 with a corrected values of 152, potassium is 3.2, BUN 54 and creatinine 1.39, blood sugar 373, bilirubin 9.3. PT/INR are not available yet. Patient is afebrile, lung is clear, heart regular rhythm. Abdomen is soft and flat, nontender. Past Medical Family Social History Allergies: Allergies atorvastatin Allergy (Verified 08/27/25 14:24) buspirone (From BuSpar) Allergy (Verified 08/27/25 14:24) haloperidol Allergy (Verified 08/27/25 14:24) morphine Allergy (Verified 08/27/25 14:24) quetiapine (From Seroquel) Allergy (Verified 08/27/25 14:24) Ztgushs-JAZ-YeQ Reductase Inhibitor Allergy (Verified 08/27/25 14:24) Vital Signs Vital Signs: Vital Signs Temperature 98.8 F Temperature 98.4 F Pulse Rate [Bilateral Radial] 97 Pulse Rate [Bilateral Radial] 90 Respiratory Rate 18 Respiratory Rate 20 Respiratory Rate 17 Blood Pressure [Right Arm] 121/57 Blood Pressure [Right Arm] 136/68 O2 Sat by Pulse Oximetry 94 O2 Sat by Pulse Oximetry 94 Physical Exam Oriented: Not Oriented Eyes: Photophobia (Icteric sclera) Respiratory: Normal Cardiovascular: Normal GI:Auscultation: Decreased GI: Tenderness: Other (Moderate and diffuse tenderness) Speech Pattern: Unclear Laboratory and Diagnostics 08/29/25 04:31 08/29/25 04:31 Labs: 08/28/25 21:10 Toe - Right Third Wound Gram Stain - Final Laboratory WBC 9.3 X10^3/uL (3.6-10.0) 08/29/25 04:31 RBC 2.96 X10^6/uL (3.5-5.4) L 08/29/25 04:31 Hgb 9.1 g/dL (12.0-16.0) L 08/29/25 04:31 Hct 27.5 % (36.0-47.0) L 08/29/25 04:31 MCV 92.9 fL (80.0-100.0) 08/29/25 04:31 MCH 30.7 pg (27.0-34.0) 08/29/25 04:31 MCHC 33.0 g/dL (33.0-35.0) 08/29/25 04:31 RDW 20.2 % (11.6-16.5) H 08/29/25 04:31 Plt Count 138 X10^3/uL (150.0-450.0) L 08/29/25 04:31 Plt Count Comment Decreased (ADEQUATE) A 08/29/25 04:31 MPV 10.3 fL (7.4-11.0) 08/29/25 04:31 Neut % (Auto) 82.7 % (42.0-75.0) H 08/29/25 04:31 Lymph % (Auto) 7.4 % (21.0-51.0) L 08/29/25 04:31 [place] % (Auto) 9.0 % (0.0-13.0) 08/29/25 04:31 Eos % (Auto) 0.5 % (0.9-2.9) L 08/29/25 04:31 Baso % (Auto) 0.4 % (0.2-1.0) 08/29/25 04:31 Neut # (Auto) 7.7 x10^3/uL (2.2-4.8) H 08/29/25 04:31 Lymph # (Auto) 0.7 X10^3/uL (1.3-2.9) L 08/29/25 04:31 [place] # (Auto) 0.8 x10^3/uL (0.3-0.8) 08/29/25 04:31 Eos # (Auto) 0.1 x10^3/uL (0.0-0.2) 08/29/25 04:31 Baso # (Auto) 0.0 X10^3/uL (0.0-0.1) 08/29/25 04:31 Absolute Nucleated RBC 0.3 /100WBC 08/29/25 04:31 Total Counted 100 08/28/25 05:18 Neutrophils % (Manual) 88 % (39-76) H 08/28/25 05:18 Band Neutrophils % 3 % (0-10) 08/28/25 05:18 Lymphocytes % (Manual) 5 % (13-43) L 08/28/25 05:18 Monocytes % (Manual) 4 % (4-9) 08/28/25 05:18 Plt Morphology Comment Normal (NORMAL) 08/29/25 04:31 RBC Morphology Abnormal (NORMAL) A 08/29/25 04:31 Anisocytosis 1+ A 08/29/25 04:31 Target Cells 1+ A 08/29/25 04:31 PT 20.7 SECONDS (11.8-14.3) 08/28/25 11:59 INR Target Range - 08/28/25 11:59 INR 1.76 (0.8-1.3) H 08/28/25 11:59 Sodium 147 mmol/L (136-145) H 08/29/25 04:31 Corrected Sodium 154 mmol/L (136-145) H 08/29/25 04:31 Potassium 3.2 mmol/L (3.5-5.1) L 08/29/25 04:31 Chloride 105 mmol/L (98-107) 08/29/25 04:31 Carbon Dioxide 35.4 mmol/L (21-32) H 08/29/25 04:31 BUN 54 mg/dL (7-18) H 08/29/25 04:31 Creatinine 1.39 mg/dL (0.55-1.02) H 08/29/25 04:31 Est GFR (MDRD) Af Amer 48 (>60) L 08/29/25 04:31 Est GFR (MDRD) Non-Af 39 (>60) L 08/29/25 04:31 Glucose 373 mg/dL (65-99) H 08/29/25 04:31 Calcium 8.7 mg/dL (8.5-10.1) 08/29/25 04:31 Corrected Calcium 10.1 mg/dL (8.5-10.1) 08/29/25 04:31 Magnesium 1.9 mg/dL (2.0-2.9) L 08/29/25 04:31 Total Bilirubin 9.30 mg/dL (0.2-1.0) H 08/29/25 04:31 AST 32 Units/L (15-37) 08/29/25 04:31 ALT 14 Units/L (12-78) 08/29/25 04:31 Alkaline Phosphatase 92 Units/L (46-116) 08/29/25 04:31 Total Protein 6.6 g/dL (6.4-8.2) 08/29/25 04:31 Albumin 2.2 g/dL (3.4-5.0) L 08/29/25 04:31 Globulin 4.4 g/dL (2.5-4.5) 08/29/25 04:31 Albumin/Globulin Ratio 0.5 Ratio (1.1-2.1) L 08/29/25 04:31 Carcinoembryonic Ag 3.2 ng/mL H 08/27/25 18:46 Specimen Type Catherized urine 08/28/25 15:24 Urine Color Dark yellow (YELLOW) 08/28/25 15:24 Urine Appearance Hazy (CLEAR) 08/28/25 15:24 Urine pH 5.0 (5.0 - 8.0) 08/28/25 15:24 Ur Specific [place] 1.015 (1.000-1.030) 08/28/25 15:24 Urine Protein 2+ (NEGATIVE) 08/28/25 15:24 Urine Glucose (UA) Negative (NEGATIVE) 08/28/25 15:24 Urine Ketones Negative (NEGATIVE) 08/28/25 15:24 Urine Blood 1+ (NEGATIVE) 08/28/25 15:24 Urine Nitrite Negative (NEGATIVE) 08/28/25 15:24 Urine Bilirubin 3+ (NEGATIVE) 08/28/25 15:24 Urine Urobilinogen 3+ (NORMAL) 08/28/25 15:24 Ur Leukocyte Esterase 2+ (NEGATIVE) 08/28/25 15:24 Urine RBC 0-2 /HPF (0-3) 08/28/25 15:24 Urine WBC 5-10 /HPF (0-5) A 08/28/25 15:24 Ur Squamous Epith Cells Few /HPF (NEGATIVE) 08/28/25 15:24 Amorphous Sediment Trace /HPF (NEGATIVE) 08/28/25 15:24 Urine Bacteria Trace /HPF (NEGATIVE) 08/28/25 15:24 Hyaline Casts Few /LPF (NEGATIVE) 08/28/25 15:24 Urine Mucus Rare /HPF (NEGATIVE) 08/28/25 15:24 Urine Yeast Rare /HPF (NEGATIVE) 08/28/25 15:24 Ur Culture Indicated? No/not indicated 08/28/25 15:24 Blood Type A NEGATIVE 08/28/25 12:14 Antibody Screen Negative 08/28/25 12:14 Assessment and Plan 1: Dehydration with acute kidney injury. Placement of PEG tube early next week. 2: Liver cirrhosis with jaundice. Hypoalbuminemia. 3: Coagulopathy secondary to liver failure To transfuse fresh frozen plasma as well as albumin.
[2025-08-29 12:05] LABS: INR 1.80 (0.8-1.3)
[2025-08-29] MEDS: NovoLIN R (or HumuLIN R) SUBCUT PRN (12:16)
[2025-08-29 16:04] LABS: COR NA(FOR HYPERGLY) 147.0 mmol/L (136-145); CREATININE 1.28 mg/dL (0.55-1.02); eGFR NON BLACK RACES 43.0 (>60)
--- NOTE | 2025-08-29 16:15 | DR.CONSULT ---
CONSULT Consultation for Day of: Date: 08/28/25 Chief Complaint Chief Complaint: hypernatremia Allergies Allergies Allergy/AdvReac Type Severity Reaction Status Date / Time atorvastatin Allergy Verified 08/27/25 14:24 buspirone (From BuSpar) Allergy Verified 08/27/25 14:24 haloperidol Allergy Verified 08/27/25 14:24 morphine Allergy Verified 08/27/25 14:24 quetiapine (From Seroquel) Allergy Verified 08/27/25 14:24 Dgsyhrj-DGE-IpA Reductase Allergy Verified 08/27/25 14:24 Inhibitor History of Present Illness History of Present Illness: Patient currently a long-term care resident at another nursing facility. Seen by our surgeon for evaluation for possible PEG placement due to poor p.o. intake and inability to take medications over the last few weeks. She was directly admitted from his office with a medicine consult today. She is hypernatremic, anemic, and in a noncognitive state. Family has been able to feed her some food, steadily and slowly. Surgery has been delayed to help maximize medical stability. She is on D5 half-normal saline with slight improvement in sodium today compared to yesterday. ROS: 12 point ROS obtained from nurses, chart, and daughter at bedside. Unobtainable from patient due to dementia. Positive for poor p.o. intake, weight loss, dementia, and inability to stand. PE: Thin, elderly female resting in bed. Head NCAT. Heart regular rate and rhythm. Lungs diminished with upper airway noises. Belly is soft with bowel sounds present. Asleep. Poor skin turgor with pallor. Past Medical History Past Medical History: Anxiety, Arthritis, CHF, Coronary Artery Disease, Depression, Diabetes, Hypertension, Liver Disease, [place] and Renal Disease Past Surgical History Surgical History: CABG/Valve Surgery, Mastectomy and Tonsillectomy Family History Family Medical History: Diabetes Mellitus, Cancer, [place], Coronary Artery Disease, Heart Failure and Hypertension Social History Alcohol Use: None Drug Use: None Medications Home Medications: atorvastatin Allergy (Verified 08/27/25 14:24) buspirone (From BuSpar) Allergy (Verified 08/27/25 14:24) haloperidol Allergy (Verified 08/27/25 14:24) morphine Allergy (Verified 08/27/25 14:24) quetiapine (From Seroquel) Allergy (Verified 08/27/25 14:24) Yacozal-IKK-OaI Reductase Inhibitor Allergy (Verified 08/27/25 14:24) CONTINUE taking the following medications acetaminophen 325 mg tablet (Tylenol) 650 mg PO Q6H PRN Pain 08/28/25 [History] ascorbic acid (vitamin C) 500 mg tablet 500 mg PO BID 08/28/25 [History] diphenhydramine HCl 25 mg capsule 50 mg PO TID PRN 08/28/25 [History] food supplemt, lactose-reduced (Ensure oral liquid) 1 ea PO TID 08/28/25 [History] multivitamin 1 tab PO QDAY 08/28/25 [History] zinc sulfate 220 mg capsule 220 mg PO DAILY 08/28/25 [History] Physical Exam Vital Signs: Vital Signs Temperature 98.0 F Temperature 98.4 F Pulse Rate [Bilateral Radial] 94 Pulse Rate [Bilateral Radial] 91 Respiratory Rate 17 Respiratory Rate 17 Blood Pressure [Right Arm] 113/53 Blood Pressure [Left Arm] 115/74 O2 Sat by Pulse Oximetry 93 O2 Sat by Pulse Oximetry 94 Plan (1) Acute hypernatremia: Status: Acute Narrative Support Text: Agree with IV fluids. Close monitoring of BMP. Given her dementia, overall prognosis is poor. Hold off on surgery for now. (2) Hypoalbuminemia due to protein-calorie malnutrition: Status: Acute (3) Type 2 diabetes mellitus with hyperglycemia: Status: Chronic Qualifiers: Diabetes mellitus terminal makeup operator insulin use: without terminal makeup operator use Qualified Code(s): E11.65 - Type 2 diabetes mellitus with hyperglycemia (4) Essential hypertension: Status: Chronic (5) CAD (coronary artery disease): Status: Chronic Qualifiers: Associated angina: without angina Coronary Disease-Associated Artery/Lesion type: [place] artery [place] vs. transplanted heart: [place] heart Qualified Code(s): I25.10 - Atherosclerotic heart disease of [place] coronary artery without angina pectoris (6) AMS (altered mental status): Status: Chronic Qualifiers: Altered mental status type: unspecified Qualified Code(s): R41.82 - Altered mental status, unspecified (7) CHF (congestive heart failure): Status: Acute Qualifiers: Heart failure type: diastolic Heart failure chronicity: chronic Qualified Code(s): I50.32 - Chronic diastolic (congestive) heart failure (8) Thrombocytopenia: Status: Acute (9) Hyperbilirubinemia: Status: Acute (10) Cirrhosis: Status: Chronic Qualifiers: Ascites presence: with ascites Hepatic cirrhosis type: unspecified hepatic cirrhosis Qualified Code(s): K74.60 - Unspecified cirrhosis of liver; R18.8 - Other ascites
--- NOTE | 2025-08-29 16:17 | NOTE.SOAP ---
Soap Note Note for Day of Date of Exam: 08/29/25 Subjective Data Subjective Data: Corrected sodium still high. Mild thrombocytopenia present. Still anemic. Vitals overall stable. More hyperglycemic on D5 1/2 NS. She is not currently on sliding scale insulin. Objective Data Objective Data: Thin, elderly female in no acute distress. Resting calmly in bed. Heart regular rate and rhythm. Lungs clear. Bowel sounds present. Assessment Assessment: Type 2 diabetes with hyperglycemia Hyponatremia Chronic anemia Alzheimer's dementia Plan Plan: Start SSI. Recheck BMP later this afternoon (Na improved). Monitor closely. Still poor surgical candidate.
[2025-08-29] MEDS: SNACK - Diabetic Appropriate PO SCH (20:36)
[2025-08-30 06:33] LABS: INR 1.58 (0.8-1.3)
[2025-08-30 06:35] LABS: MEAN PLATELET VOLUME 10.7 fL (7.4-11.0); RED CELL DISTRIBUTION WIDTH 20.9 % (11.6-16.5)
[2025-08-30 06:53] LABS: COR CA(FOR HYPOALB) 9.7 mg/dL (8.5-10.1); COR NA(FOR HYPERGLY) 144.0 mmol/L (136-145); CREATININE 1.35 mg/dL (0.55-1.02); eGFR NON BLACK RACES 41.0 (>60)
[2025-08-30 08:11] LABS: PLATELET MORPHOLOGY COMMENT NORMAL (NORMAL)
[2025-08-30] MEDS: ATIVAN INJ 2 MG VIAL IVP PRN (10:53)
[2025-08-30 13:01] LABS: INR 1.75 (0.8-1.3)
[2025-08-30] MEDS: D5W 250 ML IV 250 ML IV ONE (13:37)
--- NOTE | 2025-08-30 15:25 | NOTE.SOAP ---
Soap Note Note for Day of Date of Exam: 08/30/25 Subjective Data Subjective Data: More awake today. Some crying out. Na normal. Sugar staying over 200. Slight rise in SCr. Objective Data Objective Data: Elderly female resting in bed. Heart regular rate and rhythm. Lungs diminished but clear today. Bowel sounds are present and belly is soft and nondistended. No swelling of her extremities. Assessment Assessment: Poor oral intake Hypernatremia, resolved DM2 with hyperglycemia, due to D5 1/2NS Dementia Jaundice due to cirrhosis of liver Plan Plan: Started Ativan IV as she normally takes it p.o. Still jaundiced but sodium is now normal. Continue to monitor labs and vitals closely. I still do not think she is a good surgical candidate but she also has been taking food orally.
[2025-08-30] MEDS ORDERED: D5W 250 ML IV 250 ML IV ONE (21:36)
--- NOTE | 2025-08-30 22:37 | DR.PROGNOT ---
HOSPITAL PROGRESS NOTE Progress Note for Day of: Progress Note Date: 08/30/25 Chief Complaint Chief Complaint: No significant changes in the patient's condition, her oral intake is very poor and limited to small amount of water and liquid material. No acute distress but she has very limited ability to talk White count is 9.3, hemoglobin 9.1, platelet count 138, sodium 147 with a corrected values of 152, potassium is 3.2, BUN 54 and creatinine 1.39, blood sugar 373, bilirubin 9.3. PT/INR are not available yet. Patient is afebrile, lung is clear, heart regular rhythm. Abdomen is soft and flat, nontender. Past Medical Family Social History Allergies: Allergies atorvastatin Allergy (Verified 08/27/25 14:24) buspirone (From BuSpar) Allergy (Verified 08/27/25 14:24) haloperidol Allergy (Verified 08/27/25 14:24) morphine Allergy (Verified 08/27/25 14:24) quetiapine (From Seroquel) Allergy (Verified 08/27/25 14:24) Cinmhdk-HGD-ZhJ Reductase Inhibitor Allergy (Verified 08/27/25 14:24) Vital Signs Vital Signs: Vital Signs Temperature 98.6 F Temperature 99.8 F Pulse Rate [Bilateral Radial] 119 Pulse Rate [Bilateral Radial] 119 Respiratory Rate 18 Respiratory Rate 16 Respiratory Rate 20 Respiratory Rate 17 Blood Pressure [Right Arm] 101/60 Blood Pressure [Left Arm] 111/55 O2 Sat by Pulse Oximetry 92 O2 Sat by Pulse Oximetry 98 Physical Exam Oriented: Not Oriented Respiratory: Normal Cardiovascular: Normal GI:Auscultation: Decreased GI: Tenderness: Other (Moderate and diffuse tenderness) Speech Pattern: Clear Laboratory and Diagnostics 08/30/25 05:21 08/30/25 05:21 Labs: 08/28/25 21:10 Toe - Right Third Wound Gram Stain - Final 08/28/25 21:10 Toe - Right Third Wound Culture - Preliminary Methicillin Resis Staph Aureus Laboratory WBC 10.8 X10^3/uL (3.6-10.0) H 08/30/25 05:21 RBC 2.52 X10^6/uL (3.5-5.4) L 08/30/25 05:21 Hgb 7.8 g/dL (12.0-16.0) L 08/30/25 05:21 Hct 23.1 % (36.0-47.0) L 08/30/25 05:21 MCV 92.0 fL (80.0-100.0) 08/30/25 05:21 MCH 31.0 pg (27.0-34.0) 08/30/25 05:21 MCHC 33.7 g/dL (33.0-35.0) 08/30/25 05:21 RDW 20.9 % (11.6-16.5) H 08/30/25 05:21 Plt Count 118 X10^3/uL (150.0-450.0) L 08/30/25 05:21 Plt Count Comment Decreased (ADEQUATE) A 08/30/25 05:21 MPV 10.7 fL (7.4-11.0) 08/30/25 05:21 Neut % (Auto) 84.5 % (42.0-75.0) H 08/30/25 05:21 Lymph % (Auto) 6.3 % (21.0-51.0) L 08/30/25 05:21 [place] % (Auto) 8.1 % (0.0-13.0) 08/30/25 05:21 Eos % (Auto) 0.8 % (0.9-2.9) L 08/30/25 05:21 Baso % (Auto) 0.3 % (0.2-1.0) 08/30/25 05:21 Neut # (Auto) 9.2 x10^3/uL (2.2-4.8) H 08/30/25 05:21 Lymph # (Auto) 0.7 X10^3/uL (1.3-2.9) L 08/30/25 05:21 [place] # (Auto) 0.9 x10^3/uL (0.3-0.8) H 08/30/25 05:21 Eos # (Auto) 0.1 x10^3/uL (0.0-0.2) 08/30/25 05:21 Baso # (Auto) 0.0 X10^3/uL (0.0-0.1) 08/30/25 05:21 Absolute Nucleated RBC 0.3 /100WBC 08/30/25 05:21 Total Counted 100 08/28/25 05:18 Neutrophils % (Manual) 88 % (39-76) H 08/28/25 05:18 Band Neutrophils % 3 % (0-10) 08/28/25 05:18 Lymphocytes % (Manual) 5 % (13-43) L 08/28/25 05:18 Monocytes % (Manual) 4 % (4-9) 08/28/25 05:18 Plt Morphology Comment Normal (NORMAL) 08/30/25 05:21 RBC Morphology Abnormal (NORMAL) A 08/30/25 05:21 Anisocytosis 1+ A 08/30/25 05:21 Target Cells 1+ A 08/30/25 05:21 PT 20.6 SECONDS (11.8-14.3) 08/30/25 12:48 INR Target Range - 08/30/25 12:48 INR 1.75 (0.8-1.3) H 08/30/25 12:48 Sodium 141 mmol/L (136-145) 08/30/25 05:21 Corrected Sodium 144 mmol/L (136-145) 08/30/25 05:21 Potassium 4.1 mmol/L (3.5-5.1) 08/30/25 05:21 Chloride 102 mmol/L (98-107) 08/30/25 05:21 Carbon Dioxide 31.4 mmol/L (21-32) 08/30/25 05:21 BUN 52 mg/dL (7-18) H 08/30/25 05:21 Creatinine 1.35 mg/dL (0.55-1.02) H 08/30/25 05:21 Est GFR (MDRD) Af Amer 49 (>60) L 08/30/25 05:21 Est GFR (MDRD) Non-Af 41 (>60) L 08/30/25 05:21 Glucose 223 mg/dL (65-99) H 08/30/25 05:21 POC Glucose (mg/dL) 173 mg/dL (65-99) H 08/30/25 19:37 Calcium 8.4 mg/dL (8.5-10.1) L 08/30/25 05:21 Corrected Calcium 9.7 mg/dL (8.5-10.1) 08/30/25 05:21 Magnesium 1.9 mg/dL (2.0-2.9) L 08/29/25 04:31 Total Bilirubin 10.00 mg/dL (0.2-1.0) H 08/30/25 05:21 AST 36 Units/L (15-37) 08/30/25 05:21 ALT 12 Units/L (12-78) 08/30/25 05:21 Alkaline Phosphatase 91 Units/L (46-116) 08/30/25 05:21 Total Protein 6.4 g/dL (6.4-8.2) 08/30/25 05:21 Albumin 2.4 g/dL (3.4-5.0) L 08/30/25 05:21 Globulin 4.0 g/dL (2.5-4.5) 08/30/25 05:21 Albumin/Globulin Ratio 0.6 Ratio (1.1-2.1) L 08/30/25 05:21 Carcinoembryonic Ag 3.2 ng/mL H 08/27/25 18:46 Specimen Type Catherized urine 08/28/25 15:24 Urine Color Dark yellow (YELLOW) 08/28/25 15:24 Urine Appearance Hazy (CLEAR) 08/28/25 15:24 Urine pH 5.0 (5.0 - 8.0) 08/28/25 15:24 Ur Specific [place] 1.015 (1.000-1.030) 08/28/25 15:24 Urine Protein 2+ (NEGATIVE) 08/28/25 15:24 Urine Glucose (UA) Negative (NEGATIVE) 08/28/25 15:24 Urine Ketones Negative (NEGATIVE) 08/28/25 15:24 Urine Blood 1+ (NEGATIVE) 08/28/25 15:24 Urine Nitrite Negative (NEGATIVE) 08/28/25 15:24 Urine Bilirubin 3+ (NEGATIVE) 08/28/25 15:24 Urine Urobilinogen 3+ (NORMAL) 08/28/25 15:24 Ur Leukocyte Esterase 2+ (NEGATIVE) 08/28/25 15:24 Urine RBC 0-2 /HPF (0-3) 08/28/25 15:24 Urine WBC 5-10 /HPF (0-5) A 08/28/25 15:24 Ur Squamous Epith Cells Few /HPF (NEGATIVE) 08/28/25 15:24 Amorphous Sediment Trace /HPF (NEGATIVE) 08/28/25 15:24 Urine Bacteria Trace /HPF (NEGATIVE) 08/28/25 15:24 Hyaline Casts Few /LPF (NEGATIVE) 08/28/25 15:24 Urine Mucus Rare /HPF (NEGATIVE) 08/28/25 15:24 Urine Yeast Rare /HPF (NEGATIVE) 08/28/25 15:24 Ur Culture Indicated? No/not indicated 08/28/25 15:24 Blood Type A NEGATIVE 08/28/25 12:14 Antibody Screen Negative 08/28/25 12:14 Assessment and Plan 1: Dehydration with acute kidney injury. for Placement of PEG tube in am 2: Liver cirrhosis with jaundice. Hypoalbuminemia. 3: Coagulopathy secondary to liver failure To transfuse fresh frozen plasma as well as albumin.
[2025-08-31 05:09] LABS: MEAN PLATELET VOLUME 10.6 fL (7.4-11.0); RED CELL DISTRIBUTION WIDTH 20.4 % (11.6-16.5)
[2025-08-31 05:28] LABS: COR CA(FOR HYPOALB) 9.3 mg/dL (8.5-10.1); COR NA(FOR HYPERGLY) 140.0 mmol/L (136-145); CREATININE 1.72 mg/dL (0.55-1.02); eGFR NON BLACK RACES 31.0 (>60)
[2025-08-31 05:38] LABS: PLATELET MORPHOLOGY COMMENT NORMAL (NORMAL)
[2025-08-31 09:25] LABS: INR 1.80 (0.8-1.3)
--- NOTE | 2025-08-31 09:40 | NOTE.SOAP ---
Soap Note Note for Day of Date of Exam: 08/31/25 Subjective Data Subjective Data: No acute events overnight. Vitals and labs overall stable. Lovenox been stopped due to the thrombocytopenia. Objective Data Objective Data: Chronically ill, elderly female resting in bed. Heart regular rate and rhythm. Lungs clear but diminished. Belly soft and nontender with bowel sounds present. Jaundice still present throughout body. Assessment Assessment: MSSA infection of the right toe Jaundice due to liver cirrhosis and hyperbilirubinemia Anemia of chronic disease Hepatic encephalopathy along with dementia Plan Plan: Patient has been able to eat a little bit of food when given to her slowly. I do not think that she would benefit overall from having a PEG, I think she needs to be on comfort measures at senior living. If a PEG is to be placed, she is medically stable to do so with close monitoring of her hemoglobin and bleeding. Need to have FFP, platelets, and PRBCs available.
[2025-08-31] MEDS: BACTROBAN TOPICAL OINT TOP SCH (09:41)
[2025-08-31] MEDS: D5W IV SCH (09:42)
[2025-08-31] MEDS: BACTRIM IV SCH (09:42)
[2025-08-31] MEDS: VOLTAREN 1 % GEL MULTI DOSE TUBE TOP SCH (13:38)
--- NOTE | 2025-08-31 14:11 | DR.PROGNOT ---
HOSPITAL PROGRESS NOTE Progress Note for Day of: Progress Note Date: 08/31/25 Chief Complaint Chief Complaint: Pt was confused and agitated last night . no significant oral intake . WBC 12.7, hgb 7.3, plate 116, PT 21, INR 1.8 History of Present Illness History of Present Illness: no changes. Past Medical Family Social History Past Med/Fam/Surg Hx: No changes since H&P Allergies: Allergies atorvastatin Allergy (Verified 08/27/25 14:24) buspirone (From BuSpar) Allergy (Verified 08/27/25 14:24) haloperidol Allergy (Verified 08/27/25 14:24) morphine Allergy (Verified 08/27/25 14:24) quetiapine (From Seroquel) Allergy (Verified 08/27/25 14:24) Txalgoi-LBE-StW Reductase Inhibitor Allergy (Verified 08/27/25 14:24) Vital Signs Vital Signs: Vital Signs Temperature 97.0 F Pulse Rate [Bilateral Radial] 90 Respiratory Rate 18 Blood Pressure [Right Arm] 139/63 Blood Pressure [Left Arm] 122/57 O2 Sat by Pulse Oximetry 92 Physical Exam Oriented: Not Oriented Respiratory: Normal Cardiovascular: Normal GI:Auscultation: Decreased GI: Tenderness: Other (Moderate and diffuse tenderness) Speech Pattern: Clear Laboratory and Diagnostics 08/31/25 04:42 08/31/25 04:42 Labs: 08/28/25 21:10 Toe - Right Third Wound Gram Stain - Final 08/28/25 21:10 Toe - Right Third Wound Culture - Final Methicillin Resis Staph Aureus Laboratory WBC 12.7 X10^3/uL (3.6-10.0) H 08/31/25 04:42 RBC 2.38 X10^6/uL (3.5-5.4) L 08/31/25 04:42 Hgb 7.3 g/dL (12.0-16.0) L 08/31/25 04:42 Hct 21.9 % (36.0-47.0) L 08/31/25 04:42 MCV 92.0 fL (80.0-100.0) 08/31/25 04:42 MCH 30.4 pg (27.0-34.0) 08/31/25 04:42 MCHC 33.1 g/dL (33.0-35.0) 08/31/25 04:42 RDW 20.4 % (11.6-16.5) H 08/31/25 04:42 Plt Count 116 X10^3/uL (150.0-450.0) L 08/31/25 04:42 Plt Count Comment Decreased (ADEQUATE) A 08/31/25 04:42 MPV 10.6 fL (7.4-11.0) 08/31/25 04:42 Neut % (Auto) 87.5 % (42.0-75.0) H 08/31/25 04:42 Lymph % (Auto) 7.3 % (21.0-51.0) L 08/31/25 04:42 [place] % (Auto) 4.8 % (0.0-13.0) 08/31/25 04:42 Eos % (Auto) 0.2 % (0.9-2.9) L 08/31/25 04:42 Baso % (Auto) 0.2 % (0.2-1.0) 08/31/25 04:42 Neut # (Auto) 11.1 x10^3/uL (2.2-4.8) H 08/31/25 04:42 Lymph # (Auto) 0.9 X10^3/uL (1.3-2.9) L 08/31/25 04:42 [place] # (Auto) 0.6 x10^3/uL (0.3-0.8) 08/31/25 04:42 Eos # (Auto) 0.0 x10^3/uL (0.0-0.2) 08/31/25 04:42 Baso # (Auto) 0.0 X10^3/uL (0.0-0.1) 08/31/25 04:42 Absolute Nucleated RBC 0.0 /100WBC 08/31/25 04:42 Total Counted 100 08/28/25 05:18 Neutrophils % (Manual) 88 % (39-76) H 08/28/25 05:18 Band Neutrophils % 3 % (0-10) 08/28/25 05:18 Lymphocytes % (Manual) 5 % (13-43) L 08/28/25 05:18 Monocytes % (Manual) 4 % (4-9) 08/28/25 05:18 Plt Morphology Comment Normal (NORMAL) 08/31/25 04:42 RBC Morphology Abnormal (NORMAL) A 08/31/25 04:42 Anisocytosis 1+ A 08/31/25 04:42 Target Cells 1+ A 08/31/25 04:42 PT 21.1 SECONDS (11.8-14.3) 08/31/25 09:11 INR Target Range - 08/31/25 09:11 INR 1.80 (0.8-1.3) H 08/31/25 09:11 Sodium 135 mmol/L (136-145) L 08/31/25 04:42 Corrected Sodium 140 mmol/L (136-145) 08/31/25 04:42 Potassium 4.2 mmol/L (3.5-5.1) 08/31/25 04:42 Chloride 98 mmol/L (98-107) 08/31/25 04:42 Carbon Dioxide 27.8 mmol/L (21-32) 08/31/25 04:42 BUN 56 mg/dL (7-18) H 08/31/25 04:42 Creatinine 1.72 mg/dL (0.55-1.02) H 08/31/25 04:42 Est GFR (MDRD) Af Amer 37 (>60) L 08/31/25 04:42 Est GFR (MDRD) Non-Af 31 (>60) L 08/31/25 04:42 Glucose 300 mg/dL (65-99) H 08/31/25 04:42 POC Glucose (mg/dL) 122 mg/dL (65-99) H 08/31/25 11:40 Calcium 8.0 mg/dL (8.5-10.1) L 08/31/25 04:42 Corrected Calcium 9.3 mg/dL (8.5-10.1) 08/31/25 04:42 Magnesium 1.9 mg/dL (2.0-2.9) L 08/29/25 04:31 Total Bilirubin 11.60 mg/dL (0.2-1.0) H 08/31/25 04:42 AST 30 Units/L (15-37) 08/31/25 04:42 ALT 15 Units/L (12-78) 08/31/25 04:42 Alkaline Phosphatase 88 Units/L (46-116) 08/31/25 04:42 Total Protein 6.2 g/dL (6.4-8.2) L 08/31/25 04:42 Albumin 2.4 g/dL (3.4-5.0) L 08/31/25 04:42 Globulin 3.8 g/dL (2.5-4.5) 08/31/25 04:42 Albumin/Globulin Ratio 0.6 Ratio (1.1-2.1) L 08/31/25 04:42 Carcinoembryonic Ag 3.2 ng/mL H 08/27/25 18:46 Specimen Type Catherized urine 08/28/25 15:24 Urine Color Dark yellow (YELLOW) 08/28/25 15:24 Urine Appearance Hazy (CLEAR) 08/28/25 15:24 Urine pH 5.0 (5.0 - 8.0) 08/28/25 15:24 Ur Specific [place] 1.015 (1.000-1.030) 08/28/25 15:24 Urine Protein 2+ (NEGATIVE) 08/28/25 15:24 Urine Glucose (UA) Negative (NEGATIVE) 08/28/25 15:24 Urine Ketones Negative (NEGATIVE) 08/28/25 15:24 Urine Blood 1+ (NEGATIVE) 08/28/25 15:24 Urine Nitrite Negative (NEGATIVE) 08/28/25 15:24 Urine Bilirubin 3+ (NEGATIVE) 08/28/25 15:24 Urine Urobilinogen 3+ (NORMAL) 08/28/25 15:24 Ur Leukocyte Esterase 2+ (NEGATIVE) 08/28/25 15:24 Urine RBC 0-2 /HPF (0-3) 08/28/25 15:24 Urine WBC 5-10 /HPF (0-5) A 08/28/25 15:24 Ur Squamous Epith Cells Few /HPF (NEGATIVE) 08/28/25 15:24 Amorphous Sediment Trace /HPF (NEGATIVE) 08/28/25 15:24 Urine Bacteria Trace /HPF (NEGATIVE) 08/28/25 15:24 Hyaline Casts Few /LPF (NEGATIVE) 08/28/25 15:24 Urine Mucus Rare /HPF (NEGATIVE) 08/28/25 15:24 Urine Yeast Rare /HPF (NEGATIVE) 08/28/25 15:24 Ur Culture Indicated? No/not indicated 08/28/25 15:24 Blood Type A NEGATIVE 08/28/25 12:14 Antibody Screen Negative 08/28/25 12:14 Assessment and Plan 1: Dehydration with acute kidney injury. for Placement of PEG tube in am 2: Liver cirrhosis with jaundice. coagulopathy. Hypoalbuminemia. 3: Coagulopathy secondary to liver failure To transfuse fresh frozen plasma as well as albumin.
[2025-08-31] MEDS: NEURONTIN CAP 100 MG PO SCH (14:12)
[2025-09-01 06:03] LABS: MEAN PLATELET VOLUME 10.5 fL (7.4-11.0); RED CELL DISTRIBUTION WIDTH 20.6 % (11.6-16.5)
[2025-09-01 06:16] LABS: COR CA(FOR HYPOALB) 8.8 mg/dL (8.5-10.1); COR NA(FOR HYPERGLY) 131.0 mmol/L (136-145); CREATININE 1.99 mg/dL (0.55-1.02); eGFR NON BLACK RACES 26.0 (>60)
[2025-09-01 06:36] LABS: PLATELET MORPHOLOGY COMMENT NORMAL (NORMAL)
[2025-09-01 08:08] LABS: INR 1.63 (0.8-1.3)
--- NOTE | 2025-09-01 10:14 | NOTE.SOAP ---
Soap Note Note for Day of Date of Exam: 09/01/25 Subjective Data Subjective Data: Daughter and son at bedside. Daily rounding with charge nurse present. Primary team planning on discharging back to longterm today. Long discussion about recommendation for comfort measures given cirrhosis and dementia. Family will have a discussion before reeval for possible tube placement. Objective Data Objective Data: More awake today with some appropriate interactions to questions and comments. Heart regular rate and rhythm. Lungs clear. Belly soft with bowel sounds present. Slightly less than jaundice. Assessment Assessment: Jaundice due to liver cirrhosis Alzheimer's dementia, advanced Anemia due to chronic disease Multifactorial peripheral neuropathy Plan Plan: Overall prognosis is poor. PEG tube may prolong life but not help overall issues. Would strongly recommend hospice/palliative care.
[2025-09-01 12:26] VITALS: BP 99/57; PULSE 99; RESP 17; TEMP 97.2; O2SAT 100
== END 2025-09-01 14:00 | DRG 432 ==
LOC: MED/SURG
PROVIDERS: ADMIT Surgery; ATTEND Surgery
DX: Z79.899 Other long term (current) drug therapy; E87.0 Hyperosmolality and hypernatremia; Z29.89 Encounter for other specified prophylactic measures; L89.894 Pressure ulcer of other site, stage 4; E83.42 Hypomagnesemia; Z16.23 Resistance to quinolones and fluoroquinolones; I13.0 Hypertensive heart and chronic kidney disease with heart failure and stage 1 through stage 4 chronic kidney disease, or unspecified chronic kidney disease; L89.229 Pressure ulcer of left hip, unspecified stage; R94.4 Abnormal results of kidney function studies; I25.810 Atherosclerosis of coronary artery bypass graft(s) without angina pectoris; Z68.1 Body mass index [BMI] 19.9 or less, adult; E11.65 Type 2 diabetes mellitus with hyperglycemia; R79.89 Other specified abnormal findings of blood chemistry; E88.09 Other disorders of plasma-protein metabolism, not elsewhere classified; R41.82 Altered mental status, unspecified; R29.6 Repeated falls; R74.8 Abnormal levels of other serum enzymes; E80.6 Other disorders of bilirubin metabolism; Z16.12 Extended spectrum beta lactamase (ESBL) resistance; E86.0 Dehydration; K74.69 Other cirrhosis of liver; B95.62 Methicillin resistant Staphylococcus aureus infection as the cause of diseases classified elsewhere; R63.0 Anorexia; F02.811 Dementia in other diseases classified elsewhere, unspecified severity, with agitation; R79.1 Abnormal coagulation profile; Z95.2 Presence of prosthetic heart valve; R18.8 Other ascites; R97.0 Elevated carcinoembryonic antigen [CEA]; N17.8 Other acute kidney failure; E83.51 Hypocalcemia; Z16.29 Resistance to other single specified antibiotic; N18.9 Chronic kidney disease, unspecified; G30.8 Other Alzheimer's disease; E87.6 Hypokalemia; I50.32 Chronic diastolic (congestive) heart failure; L89.892 Pressure ulcer of other site, stage 2; D69.6 Thrombocytopenia, unspecified; D72.828 Other elevated white blood cell count